=== PATIENT | female | born 1945 | race Caucasian/White ===

== ENCOUNTER → 2018-10-30 10:38 | Outpatient (CLI) | payer MEDICARE, SELFPAY ==
--- NOTE | 2018-10-30 | DI.MG.S_ITS ---
BILATERAL DIGITAL SCREENING MAMMOGRAM 3D/2D WITH CAD POST LUMPECTOMY: 10/30/2018 CLINICAL: Routine screening. Personal history of breast cancer. Family history of breast cancer. Comparison is made to exams dated: 01/10/2018 mammogram, 12/21/2017 mammogram, 12/12/2017 mammogram, 09/15/2015 mammogram, 09/09/2014 mammogram, and 09/06/2013 mammogram - [facility]. There are scattered fibroglandular elements in both breasts. Current study was also evaluated with a Computer Aided Detection (CAD) system. There are benign post operative findings in the left breast. No significant masses, calcifications, or other findings are seen in either breast. There has been no significant interval change. IMPRESSION: There is no mammographic evidence of malignancy. A 1 year screening mammogram is recommended. This exam was interpreted at Station ID: [id number]. NOTE: For mammograms, a report in lay terms will be sent to the patient. Approximately 15% of breast malignancies will not be visualized mammographically. In the management of a palpable breast mass, a negative mammogram must not discourage biopsy of a clinically suspicious lesion. Electronically Signed By: Edy kraft/ashley:10/30/2018 13:49:27 copy to: Travis Narvaez letter sent: Normal Exam ACR BI-RADS Category 2: Benign Finding(s) 3342F
== END ==
PROVIDERS: Family Provider Internal Medicine; PCP Internal Medicine; Visit Provider Radiology Radiation Oncology
DX: Z12.31 Encounter for screening mammogram for malignant neoplasm of breast (principal); Z85.3 Personal history of malignant neoplasm of breast; Z80.3 Family history of malignant neoplasm of breast
CPT/HCPCS: 77063; 77067

== ENCOUNTER → 2019-03-07 11:37 | Outpatient (CLI) | payer MEDICARE, SELFPAY ==
--- NOTE | 2019-03-07 | DI.RAD.S_ITS ---
PROCEDURE: XR KNEE LT 3V INDICATIONS: BILAT KNEE ARTHRITIS TECHNIQUE: 3 views of the knee were acquired. COMPARISON: [facility], CR, XR KNEE RT 3V, 03/07/2019, 11:47. FINDINGS: Bones: No fractures or dislocations. No suspicious bony lesions. Moderately severe medial compartment joint space narrowing is present on the left, appreciably less prominent than that on the right. No effusion or loose body is seen. Soft tissues: No joint effusion. No suspicious soft tissue calcifications. IMPRESSION: Asymmetric knee joint osteoarthritis at the medial compartments, greater on the left than the right where [id number]-mv-[id number] articulation is seen at the joint margin. Dictated by: Carlos Grigsby M.D. on 03/07/2019 at 12:46 Approved by: Carlos Grigsby M.D. on 03/07/2019 at 12:47
--- NOTE | 2019-03-07 | DI.RAD.S_ITS ---
PROCEDURE: XR KNEE RT 3V INDICATIONS: BILAT KNEE ARTHRITIS TECHNIQUE: Anderson views of the knee were acquired. COMPARISON: None. FINDINGS: Bones: No fractures or dislocations. No suspicious bony lesions. There is tnqx-je-javwotii medial compartment joint space narrowing, and no effusion or intra-articular loose body is seen. Soft tissues: No joint effusion. No suspicious soft tissue calcifications. IMPRESSION: Mild to moderate medial compartment osteoarthritis allowing joint space narrowing in that area but no trauma is seen. Dictated by: Carlos Grigsby M.D. on 03/07/2019 at 12:45 Approved by: Carlos Grigsby M.D. on 03/07/2019 at 12:46
== END ==
PROVIDERS: Family Provider Internal Medicine; PCP Internal Medicine; Visit Provider Internal Medicine
DX: M17.0 Bilateral primary osteoarthritis of knee (principal)
CPT/HCPCS: 73562

== ENCOUNTER → 2019-08-08 17:00 | Outpatient (CLI) | payer MEDICARE, SELFPAY ==
--- NOTE | 2019-08-08 17:01 | DI.MRI.S_ITS ---
PROCEDURE: MR KNEE RT WO CON INDICATIONS: UNILATERAL PRIMARY OSTEOARTHRITIS, RIGHT KNEE TECHNIQUE: Noncontrast sagittal PD fast spin echo and T2 fast spin echo with fat saturation, sagittal 3-D FLASH with fat saturation; coronal T1 spin echo and PD fast spin echo with fat saturation, and axial PD fast spin echo with fat saturation through the knee. COMPARISON: [facility], CR, XR KNEE RT 3V, 03/07/2019, 11:47. FINDINGS: Image quality: Motion artifact is present on several imaging sequences. This does result in suboptimal evaluation for subtle abnormalities. Bones and joint: There is no acute fracture or dislocation. No suspicious osseous lesions are evident. There is a small knee joint effusion. No significant Carlton's cyst is evident. Heterogeneity of the hyaline articular cartilage is noted within all 3 compartments of the knee. Marginal osteophytes are noted within all 3 compartments of the knee. There areas of degenerative/reactive marrow change evident along the periphery of the medial tibial plateau. Cruciate ligaments: The anterior and posterior cruciate ligaments are intact. Menisci: There is an oblique tear identified involving the body and posterior horn of the medial meniscus that extends into the inferior articular surface and propagates to the posterior meniscal root. Grade 2 signal through the body of the medial meniscus is also present. There is grade 2 signal involving the body of the lateral meniscus. A horizontal tear along the periphery of the lateral meniscus may be present without displacement. Medial structures: The medial collateral ligament is intact. The semimembranosus tendon insertion is intact. The imaged portions of the pes anserinus tendons are unremarkable. No significant fluid is contained within the pes anserinus bursa. Lateral structures: The popliteal tendon is edematous and irregular. The lateral collateral ligament proper (fibular collateral ligament) and the proximal tibiofibular ligaments are intact. The distal aspect of the biceps femoris tendon and the iliotibial band are intact. Anterior structures: The quadriceps and patellar tendons are intact. There is no significant edema in the infrapatellar fat pad. Edema within the subcutaneous tissues about the knee is present. IMPRESSION: 1. Oblique tear involving the body and posterior horn of the medial meniscus. 2. Probable horizontal tear on the periphery of the lateral meniscus. 3. Mild to moderate degenerative changes of the knee. 4. Small knee joint effusion. 5. Partial thickness tearing and tendinopathy of the proximal popliteal tendon. Dictated by: Sesar Hurley M.D. on 08/09/2019 at 9:32 Approved by: Sesar Hurley M.D. on 08/09/2019 at 9:39
== END ==
PROVIDERS: Family Provider Internal Medicine; PCP Internal Medicine; Visit Provider Orthopaedic Surgery
DX: M17.11 Unilateral primary osteoarthritis, right knee (principal); S83.241A Other tear of medial meniscus, current injury, right knee, initial encounter; M25.461 Effusion, right knee
CPT/HCPCS: 73721

== ENCOUNTER → 2019-08-12 16:43 | Outpatient (CLI) | payer MEDICARE, SELFPAY ==
[2019-08-12 18:08] LABS: Blood Urea Nitrogen 18 mg/dL (7-17); Calcium 9.7 mg/dL (8.4-10.2); Carbon Dioxide 28 mmol/L (22-32); Chloride 99 mmol/L (98-107); Estimated Glomerular Filt Rate > 60.0 mL/min (>60); Glucose 97 mg/dL (80-110); HEMOLYSIS 33 (0-50); Potassium 4.4 mmol/L (3.4-5.1); Sodium 138 mmol/L (137-145)
[2019-08-12 18:13] LABS: Add Manual Diff / Slide Review YES; Hematocrit 43.1 % (36-46); Hemoglobin 14.8 g/dL (12.0-16.0); Mean Corpuscular HGB Conc 34.2 % (30-36); Mean Corpuscular Hemoglobin 32.4 PG (26-34); Mean Corpuscular Volume 94.6 fL (80-100); Platelet Count 138 X10^3/uL (150-400); Red Blood Cell Count 4.56 X10^6/uL (4.0-5.2); Red Cell Distribution Width 13.4 % (11.6-14.8); White Blood Cell Count 7.5 X10^3/uL (4.5-11.0)
[2019-08-12 18:19] LABS: Appearance Urine UA CLEAR; Bilirubin Urine UA NEGATIVE (NEGATIVE); Color Urine UA YELLOW; Glucose Urine UA NEGATIVE (Negative); Ketones Urine UA NEGATIVE (NEGATIVE); Leukocyte Esterase Urine UA NEGATIVE (NEGATIVE); Nitrite Urine UA NEGATIVE (Negative); Occult Blood Urine UA NEGATIVE (Negative); Protein Urine UA NEGATIVE (Negative); Specific Gravity Urine UA <=1.005 (1.000-1.035); Urobilinogen Urine UA 0.2 E.U./dL (0.2)
[2019-08-12 18:23] LABS: pH Urine UA 6.5 (4.5-8.0)
[2019-08-12 18:24] LABS: Bacteria Urine Occasional (0-1); Culture Indicated Urine Cult Not Indicated; RBC Urine 0-1/HPF (0-5/HPF); Squamous Epithelial Cell Urine 0-1 /HPF (0-5/HPF); WBC Urine 0-1/HPF (0-5/HPF)
[2019-08-12 18:37] LABS: Neutrophils Absolute Manual 5400 /uL (3000-5900); RBC Morphology Normal Morphology; Total Cells Counted 100
== END ==
PROVIDERS: Family Provider Internal Medicine; PCP Internal Medicine; Visit Provider Orthopaedic Surgery
DX: Z01.818 Encounter for other preprocedural examination (principal); N39.9 Disorder of urinary system, unspecified; Z13.1 Encounter for screening for diabetes mellitus; R73.9 Hyperglycemia, unspecified
CPT/HCPCS: 36415; 80048; 81001; 83036; 85025; 93005; 93010

== ENCOUNTER 2019-10-11 12:13 | Observation (INO) | payer MEDICARE, SELFPAY ==
[2019-09-26 09:03] VITALS: BMI 43.0
[2019-10-10] VITALS (14 sets, daily range): BP systolic 95–158; BP diastolic 54–90; PULSE 54–90; RESP 11–21; TEMP 36–36.4; O2SAT 92–100; BMI 43.0
--- NOTE | 2019-10-10 11:40 | DI.RAD.S_ITS ---
PROCEDURE: XR KNEE RT 1TO2V INDICATIONS: total right knee TECHNIQUE: 2 view(s) of the knee acquired. COMPARISON: [facility], CR, XR KNEE ARTHRITIC SERIES BI, 04/25/2019, 13:26. FINDINGS: Bones: Patient is status post knee joint arthroplasty. Hardware components are in expected positions. Visualized bony structures are intact. Soft tissues: Overlying postoperative changes are noted. Expected postoperative changes within the adjacent soft tissues is present with areas of soft tissue air and edema. A surgical drainage catheter is seen overlying the superolateral margin of the knee. No unexpected radio opaque foreign bodies are appreciated. IMPRESSION: Expected postsurgical changes related to a total right knee arthroplasty. Dictated by: Sesar Hurley M.D. on 10/10/2019 at 15:02 Approved by: Sesar Hurley M.D. on 10/10/2019 at 15:03
[2019-10-10] MEDS: LACTATED RINGERS 1,000 ML 42 ML IV (11:46)
[2019-10-10] MEDS: CELECOXIB 200 MG CAPSULE PO (11:48)
[2019-10-10] MEDS: ACETAMINOPHEN 325 MG TABLET 975 MG PO (11:48)
[2019-10-10] MEDS: PREGABALIN 75 MG CAPSULE PO (11:48)
[2019-10-10] MEDS: VANCOMYCIN 1,000 MG/200 ML PIGGYBACK 200 MG IV (11:51)
--- NOTE | 2019-10-10 12:33 | PM.PREOP ---
Pre-operative Note Interval Note History & Physical reviewed/Exam performed by Physician: Yes Changes to H&P: No
--- NOTE | 2019-10-10 12:41 | PM.OP.1 ---
Operative Date/Time/Diagnoses Date of procedure: 10/10/19 Time of procedure: 13:21 Pre-op diagnosis: Severe right knee OA Post-op diagnosis: same Procedure & Clinicians Procedure: Right total knee arthroplasty Same procedure as scheduled: Yes Indications: The patient has had progressively worsening right knee pain with radiographic changes consistent with arthritis. Non-operative management has failed and the patient has requested total knee replacement. The risks, benefits and alternatives to surgery were discussed with the patient prior to proceeding. Risks discussed included, but were not limited to, failure to relieve pain, stiffness, infection, nerve damage, deep venous thrombosis, pulmonary embolism, stroke, coma, heart attack, permanent paralysis and , as well as the potential need for eventual revision of the prosthetic. Surgeon: Susan Talbot Credit Risk Review Officer: Watson Gresham Anesthesia Type: General and Spinal Operative Notes Findings: Severe right knee OA, good stability Closure Type: primary Prosthetic devices, grafts, tissues, transplants, or devices: Talbot [employer] Nephew Journey BCS 2 size 5 femur, size 3 tibia, 32 by 7.5mm patella, +10 poly Applied: drain(s) Estimated Blood Loss (mL): 250 Blood products transfused: none Tourniquet time (min): 68 Procedure in detail: The patient was seen in the pre-operative area, where the patient identified the right knee as the operative site and this was marked with my initials. The patient received pre-operative antibiotics, and was taken to the operating room and placed on the operative table in the supine position. After satisfactory anesthesia, a timekeeper supervisor out was performed. The right leg was encircled with a tourniquet about the proximal thigh, and the leg was prepared from the toes to the tourniquet with ChloroPrep in the usual fashion and draped through sterile drapes. The leg was elevated and exsanguinated with Eschmark bandage and the tourniquet inflated to [250] mmHg pressure. The knee was approached through an approximately 18 cm incision centered over the patella and carried into the knee through a medial parapatellar arthrotomy. A portion of the medial and lateral meniscus was resected. Soft tissue was carefully mobilized around the patella the patella was measured with a caliper. Bone was resected from the patella and the patellar height was reconstituted with up an appropriate sized patellar component. A cover was then placed on the patella. A small amount of additional medial and lateral meniscus was resected. The visionare guide fit well to the distal femur. It looked like an appropriate distal femoral cut and the cut was made without difficulty. The rotation was assessed and the appropriate size femoral guide was placed on the distal femur and finishing cuts were made. There was no evidence of notching. The anterior, posterior and chamfer cuts were then made. The posterior osteophytes and soft tissues were then removed. The posterior capsule was injected with part of a mixture of 60 ml 0.25% Marcaine mixed with 20 ml Exparel for post operative pain control. The remainder of this mixture was injected into the capsule and subcutaneous tissues during cement curing. The tibia was prepared and the visionaire guide fit well to the distal tibia. The rotation was assessed. The patient was placed in extension residual medial and lateral meniscus as well as any residual bone was carefully resected. [No] additional tibia was resected. Hemostasis was achieved especially posteriorly. Additional local was injected into the posterior capsule. The extension gap was assessed and additional releases for gap balancing were performed as necessary. It was checked with the gap visual merchandising assistant. The femoral component was trial was placed and the notch was finished. Trial tibial and femoral components were then placed and the knee placed through a range of motion. Range of motion was [0-130], with good stability throughout the range. The trials were then removed, and the tibia was finished. The bone was prepared with pulsatile lavage, and dried with a sponge. Cement was applied and the final prosthetics placed. Excess cement was removed during and after cement curing. A brief Betadine soak was performed. After confirming there was no extruded cement posteriorly, the final tibial insert was placed. The knee was copiously irrigated and the tourniquet deflated. Hemostasis was obtained with the Bovie. A drain was placed and brought out superolaterally. The capsule was closed with interrupted Vicryl suture. The subcutaneous layer was closed with barbed sutures, and the skin with a running 3-0 V-Lock suture and Surgical glue. An Aquacel Ag dressing was applied and the patient was taken to recovery having tolerated the procedure well. Complications: none Post-operative Condition: stable Disposition: Acute Care Plan for aftercare: The patient will be maintained on a standard total knee replacement protocol with weight bearing as tolerated. The patient will receive aspirin and sequential compression devices for DVT prophylaxis. The patient will be discharged home when safe for the home environment.
[2019-10-10] MEDS: CEFAZOLIN 2 GM/100 ML FROZ.PIGGY IV ×2 (13:12→21:42)
[2019-10-10] MEDS: TRANEXAMIC ACID 1,000 MG VIAL 2000 MG INJ (13:30)
--- NOTE | 2019-10-10 13:41 | SUR.OPER ---
Supine on padded OR bed. Pillow under head, arms secured on padded armboards <90 degree abduction. Safety belt across torso. Non-operative leg secured with tape over blanket over lower leg. Operative leg secured in DeMayo/Simon positioner. Foam padded brace at thigh of operative leg.
[2019-10-10] MEDS: BUPIVACAINE 0.25% W/ EPI (PF) 10 ML VIAL 60 ML INJ (13:46)
[2019-10-10] MEDS: BUPIVACAINE LIPOSOME 266 MG/20 ML VIAL INJ (13:47)
[2019-10-10] MEDS: TRANEXAMIC ACID 1,000 MG VIAL 1000 MG IV (15:00)
[2019-10-10] MEDS: LACTATED RINGERS 1,000 ML 125 ML IV (18:11)
[2019-10-10] MEDS: AMLODIPINE 5 MG TABLET PO (18:12)
[2019-10-10] MEDS: IBUPROFEN 400 MG TABLET PO ×2 (18:12→21:42)
--- NOTE | 2019-10-10 19:42 | PC.NURSE ---
Donna shift note: Received patient from PACU, awake, alert, and pleasant. Oriented to room, environment, and plan of care. High risk precautions in place and call light within reach, Bill at bedside providing supportive care.
[2019-10-10] MEDS: ASPIRIN EC 81 MG TABLET PO (21:42)
[2019-10-10] MEDS: ACETAMINOPHEN 325 MG TABLET 650 MG PO (21:42)
[2019-10-10] MEDS: DOCUSATE 100 MG CAPSULE PO (21:42)
[2019-10-10] MEDS: cloNIDine 0.1 MG TABLET PO (21:43)
[2019-10-11] VITALS (8 sets, daily range): BP systolic 98–142; BP diastolic 65–75; PULSE 50–77; RESP 16–18; TEMP 35.9–37.3; O2SAT 96–99
[2019-10-11] MEDS: IBUPROFEN 400 MG TABLET PO ×6 (02:39→20:51)
[2019-10-11] MEDS: CEFAZOLIN 2 GM/100 ML FROZ.PIGGY IV (04:49)
[2019-10-11 05:26] LABS: Hematocrit 37.7 % (36-46); Hemoglobin 12.6 g/dL (12.0-16.0)
[2019-10-11] MEDS: OXYCODONE IR 5 MG TABLET PO ×5 (08:04→20:51)
[2019-10-11] MEDS: LOSARTAN 50 MG TABLET 100 MG PO (08:05)
[2019-10-11] MEDS: DOCUSATE 100 MG CAPSULE PO ×2 (08:06→20:51)
[2019-10-11] MEDS: hydroCHLOROthiazide 25 MG TABLET PO (08:09)
[2019-10-11] MEDS: ASPIRIN EC 81 MG TABLET PO ×2 (08:09→20:51)
[2019-10-11] MEDS: ACETAMINOPHEN 325 MG TABLET 650 MG PO ×3 (08:10→20:51)
[2019-10-11] MEDS: SODIUM CHLORIDE 0.9% FLUSH 10 ML IV ×2 (08:10→21:07)
--- NOTE | 2019-10-11 09:46 | PT.IIE ---
Current Diagnoses Unilateral primary osteoarthritis, right knee (10/10/19) Surgery Performed Operation Date: 10/10/19 13:15 Actual Procedures p Total Knee Arthroplasty(Right) - Susan Talbot MD Surgical History (Last Updated 09/26/19 @ 09:22 by June Jewell, RN) History of hammer toe correction (Acute) History of partial mastectomy of left breast (Acute ~2017) Hx of appendectomy (Acute) Hx of bilateral cataract extraction (Acute) Medical History (Last Updated 09/26/19 @ 09:31 by June Jewell RN) Anxiety (Acute) Arthritis (Acute) Breast cancer, left (Acute ~2016) Cellulitis (Acute ~2010) HTN (hypertension) (Acute) Osteoarthritis (Acute) Pedal edema (Acute) Pre-diabetes (Acute) Rosacea (Acute) Seasonal allergies (Acute) Thin skin (Acute) Venous insufficiency (Acute) Physical Therapy Inpatient Evaluation/Re-Eval M1 PT/OT-IP Prior Functional Status Start: 10/11/19 11:55 Freq: NEEDED Status: Active Protocol: Document 10/11/19 09:46 AB (Rec: 10/11/19 12:13 AB [id number]) Medical Review Prior Functional Status Medical History Reviewed Yes Communication able to make needs known Mobility and Gait pt stated that she is modified independent with all mobilities and ambulation without AD indoors but has used a FWW/SPC for the last 2 weeks due to knee pain; usually uses a SPC for outdoor mobility Social History Household Members spouse Living Arrangements House Number of Floors (Floors) One Floor Number of Stairs To Enter/Railing? no steps to enter Home Environment High Toilet,Walk in Shower, Built-In Shower Seat Home Equipment Front Wheel Walker,Straight Cane,Hand Held Shower,Grab Bars Near Toilet,Grab Bars In Shower Employment Status Retired M2 PT-IP Current Condition Start: 10/11/19 11:55 Freq: NEEDED Status: Active Protocol: Document 10/11/19 09:46 AB (Rec: 10/11/19 12:13 AB [id number]) Physical Therapy Current Condition Current Condition Evaluation Date 10/11/19 Treatment Diagnosis s/p R TKA; difficulty in walking Onset Date 10/10/19 Weight Bearing Status Weight Bearing Status Weight Bear as Tolerated M3 PT-IP Subjective Start: 10/11/19 11:55 Freq: NEEDED Status: Active Protocol: Document 10/11/19 09:46 AB (Rec: 10/11/19 12:13 AB [id number]) Subjective Physical Therapy Visit Type Type Initial Evaluation Visit Start Time 09:46 Visit Stop Time 10:35 Total Visit Minutes 49 Number of CLARIFIER OPERATOR Visits 0 Physical Therapy Visit Comments Patient Comments pt agreeable to do PT Therapy Pain Assessment Pain When Pain Assessed At Rest Pain Present Pain Present Pain Reported Location Right Knee Intensity 4 Scale Used Numeric (1 - 10) Description With Movement Pain Behaviors Guarding Pain Management Techniques Distraction,Modification of Treatment,Re-positioning, Timing of Activity with Medications M4 PT-IP Mobility and Gait Start: 10/11/19 11:55 Freq: NEEDED Status: Active Protocol: Document 10/11/19 09:46 AB (Rec: 10/11/19 12:13 AB [id number]) PT-Bed Mobility Assessment Supine to Sit Supine to Sit Standby Assistance Sit to Supine Sit to Supine Standby Assistance PT-Transfer Assessment Sit to and From Stand Sit to and from Stand Minimal Assistance,Moderate Assistance,1 Person Assistance ,Use of Upper Extremities Equipment Transfer Assistive Device Gait Belt,Front Wheeled Walker Orthotic/Prosthetic Devices or Brace: No Transfers Transfer Destination Bed,Chair,Toilet Transfer Technique ambulated using FWW Transfer Ability Level of Assist Contact Guard Assistance,1 Person Assistance,Use of Upper Extremities Comments Mobility Comments pt found sitting on chair. completed sit to stand max A and cues. completed sit <> stand x 4 reps initially requiring mod to max A but after 2 reps only requires min A and cues for techniques. pt requested to use the toilet and ambulation using FWW min A and cues ~ 10 ft. completed sit <>stand using grab bars min A and cues. ambulated from the toilet towards the sink using FWW CGA to min A and cues and was able to maintain standing using FWW for support CGA. pt ambulated farther in the room ~ 30 ft CGA to min A and cues. pt completed bed mobility supine< >sit SBA. spouse came midway through session and caregiver training conducted. educated spouse on how to use safety belt and how to assist pt. pt completed sit <>stand x 2 reps with spouse assisting and completed safety. spouse also was able to assist pt with ambulation. Gait Assessment Gait Gait Assistance Required: Contact Guard Assist,Minimum Assistance Distance (Feet) 30 Able to Maintain Weight Bearing Status Yes During Gait Assistive Devices Assistive Device Gait Belt,Front Wheeled Walker Orthotic/Prosthetic Devices or Brace: No Gait Deviations General Gait Pattern Antalgic,Decreased Stride Length,Decreased Feet Clearance Factors Limiting Gait Function Factors Limiting Gait Function Decreased Activity Tolerance, Decreased Strength,Limited Range of Motion,Pain,Poor Balance,Poor Safety Awareness PT-Balance Assessment Sitting Balance and Reactions Static Sitting Balance Ability Good Dynamic Sitting Balance Ability Good Standing Balance and Reactions Static Standing Balance Ability Fair Dynamic Standing Balance Ability Fair Device Used FWW M5 PT-IP Objective Assessments Start: 10/11/19 11:55 Freq: NEEDED Status: Active Protocol: Document 10/11/19 09:46 AB (Rec: 10/11/19 12:13 AB [id number]) Orientation Orientation/Cognition Level of Alertness Alert Orientation Name,Day of Week,Situation Safety Awareness Understands Safety Issues Memory Description No Deficits Noted Strength Comments Strength Comments BLE 4-/5 Coordination Assessment Gross Coordination Gross Coordination WNL Sensation Assessment Sensation Gross Sensation WNL Muscle Tone Muscle Tone WNL Yes M6 PT-IP Treatment Start: 10/11/19 11:55 Freq: NEEDED Status: Active Protocol: Document 10/11/19 09:46 AB (Rec: 10/11/19 12:13 AB [id number]) Physical Therapy Treatment Education Education Provided Precautions,Weight Bearing Status,Post-Op Packet,Safety M7 PT-IP Assessment and Plan Start: 10/11/19 11:55 Freq: NEEDED Status: Active Protocol: Document 10/11/19 09:46 AB (Rec: 10/11/19 12:13 AB [id number]) PT Summary Assessment and Plan Potential Rehabilitation Potential Good Status of Condition at Evaluation Stable Summary Impairments Pain,ROM,Strength,Balance, Coordination,Sensation,Tone, Cognition,Bed Mobility, Transfers,Gait,Activity Tolerance Assessment Summary pt requiring CGA to min A with ambulation but requiring min to mod A with sit to stand. caregiver training initiated and spouse was able to assist pt safely. pt may go home when medically stable. Pt stated that she has outpt PT set up already. Goals Bed Mobility Goal Independent Transfer Goal Independent,Front Wheeled Walker Gait Goal Independent,Front Wheel Walker Gait Distance 200 Days to Meet Goals 3 Frequency of Treatment Frequency Of Treatment Twice a Day Treatment Plan Physical Therapy Treatment Plan Bed Mobility Training,Transfer Training,Gait Training, Therapeutic Exercise,Balance Retraining,Post Op Education, Discharge Planning,Hot or Cold Pack,Neuromuscular Re-ed, Coordination Retraining,Manual Therapy Recommendations To Nursing Amount of Assist Needed 1 Person Assist Discharge Recommendations PT Discharge Recommendations Home with Assistance, Outpatient PT
--- NOTE | 2019-10-11 10:30 | PC.NURSE ---
Addendum entered by Paulina Pearce R.N. 10/11/19 14:51: At 1311, Message left on [facility] phone regarding discharge order and planning for today. Addendum entered by Paulina Pearce R.N. 10/11/19 14:29: At 1420, pt out of chair ambulation with PT, c/o 9/10 pain to right knee, able to walk in room using walker with and PT at side, settled back into bed. Scheduled Tylenol and prn Oxycodone given. Addendum entered by Paulina Pearce R.N. 10/11/19 13:10: pt states having her prescription for PRN Oxycodone and Colace at home. Spoke with pt regarding preventing constipation with water, stool softeners, ambulation every 2 hours when at home. Original Note: Day Shift- Pt A&OX4, able to make needs known using call light, OOB to BR then chair for breakfast. Reports 1-3/10 pain with rest to right knee and 6-7/10 with movement. Pain management plan discussed, staying ahead of pain as anesthesia medications are to wear off. Explained when at home, controlling pain and then weaning from narcotics, and Ibuprofen, and Acetaminophen. Increasing interval time between doses and cutting medication in half or quarters, keeping track of pain and when pain medications were taken. Right knee incision covered with CDI aquacel dressing and alberto wrap. Hemovac insitu with tegaderm dressing CDI. CMS+. pt states has chronic edema and venous insufficiency. RLE worse than LLE. No other voiced concerns, call light with in reach.
--- NOTE | 2019-10-11 14:07 | PT.IPTN ---
Current Diagnoses Unilateral primary osteoarthritis, right knee (10/10/19) Surgery Performed Operation Date: 10/10/19 13:15 Actual Procedures p Total Knee Arthroplasty(Right) - Susan Talbot MD Physical Therapy Treatment Note M2 PT-IP Current Condition Start: 10/11/19 11:55 Freq: NEEDED Status: Active Protocol: Document 10/11/19 09:46 AB (Rec: 10/11/19 12:13 AB [id number]) Physical Therapy Current Condition Current Condition Evaluation Date 10/11/19 Treatment Diagnosis s/p R TKA; difficulty in walking Onset Date 10/10/19 Weight Bearing Status Weight Bearing Status Weight Bear as Tolerated M3 PT-IP Subjective Start: 10/11/19 11:55 Freq: NEEDED Status: Active Protocol: Document 10/11/19 14:07 AB (Rec: 10/11/19 16:52 AB [id number]) Subjective Physical Therapy Visit Type Type Treatment Note Visit Start Time 14:07 Visit Stop Time 14:28 Total Visit Minutes 21 Number of INSEMINATION WORKER Visits 0 Physical Therapy Visit Comments Patient Comments pt agreeable to do PT Therapy Pain Assessment Pain When Pain Assessed At Rest Pain Present Pain Present Pain Reported Location Right Knee Intensity 6 Scale Used increases to 8/10 with movement Pain Management Techniques Modification of Treatment,Re- positioning,Timing of Activity with Medications M4 PT-IP Mobility and Gait Start: 10/11/19 11:55 Freq: NEEDED Status: Active Protocol: Document 10/11/19 14:07 AB (Rec: 10/11/19 16:52 AB [id number]) PT-Bed Mobility Assessment Sit to Supine Sit to Supine Moderate Assistance,1 Person Assistance PT-Transfer Assessment Sit to and From Stand Sit to and from Stand Moderate Assistance,1 Person Assistance,Use of Upper Extremities Equipment Transfer Assistive Device Gait Belt,Front Wheeled Walker Orthotic/Prosthetic Devices or Brace: No Comments Mobility Comments caregiver traiing conducted. spouse was able to mange safety belt on pt and was able to safely assist pt with bed mobility, transfers and ambulation. pt needing increase assistance this afternoon with c/o increase knee pain. Gait Assessment Gait Gait Assistance Required: Minimum Assistance Distance (Feet) 30 Able to Maintain Weight Bearing Status Yes During Gait Assistive Devices Assistive Device Gait Belt,Front Wheeled Walker Orthotic/Prosthetic Devices or Brace: No Gait Deviations General Gait Pattern Antalgic,Decreased Stride Length,Decreased Feet Clearance,Step-to Gait Factors Limiting Gait Function Factors Limiting Gait Function Decreased Activity Tolerance, Decreased Strength,Limited Range of Motion,Pain,Poor Balance,Poor Safety Awareness Comments Gait Comments pls refer to mobility section for details M5 PT-IP Objective Assessments Start: 10/11/19 11:55 Freq: NEEDED Status: Active Protocol: Document 10/11/19 09:46 AB (Rec: 10/11/19 12:13 AB [id number]) Orientation Orientation/Cognition Level of Alertness Alert Orientation Name,Day of Week,Situation Safety Awareness Understands Safety Issues Memory Description No Deficits Noted Strength Comments Strength Comments BLE 4-/5 Coordination Assessment Gross Coordination Gross Coordination WNL Sensation Assessment Sensation Gross Sensation WNL Muscle Tone Muscle Tone WNL Yes M6 PT-IP Treatment Start: 10/11/19 11:55 Freq: NEEDED Status: Active Protocol: Document 10/11/19 14:07 AB (Rec: 10/11/19 16:52 AB [id number]) Physical Therapy Treatment Education Education Provided Safety M7 PT-IP Assessment and Plan Start: 10/11/19 11:55 Freq: NEEDED Status: Active Protocol: Document 10/11/19 14:07 AB (Rec: 10/11/19 16:52 AB [id number]) PT Summary Assessment and Plan Potential Rehabilitation Potential Good Summary Impairments Pain,ROM,Strength,Balance, Coordination,Sensation,Tone, Cognition,Bed Mobility, Transfers,Gait,Activity Tolerance Progress Towards Goals Slow Progress due to Pain Assessment Summary caregiver training conducted and spouse was able to assist pt safely. pt complaining of increase pain this afternoon affecting mobility and level of care but spouse able to assist pt despite of increase assistance needed. pt may go home when medically stable. Goals Bed Mobility Goal Independent Transfer Goal Independent,Front Wheeled Walker Gait Goal Independent,Front Wheel Walker Gait Distance 200 Days to Meet Goals 3 Frequency of Treatment Frequency Of Treatment Twice a Day Treatment Plan Physical Therapy Treatment Plan Bed Mobility Training,Transfer Training,Gait Training, Therapeutic Exercise,Balance Retraining,Post Op Education, Discharge Planning,Hot or Cold Pack,Neuromuscular Re-ed, Coordination Retraining,Manual Therapy Recommendations To Nursing Amount of Assist Needed 1 Person Assist Discharge Recommendations PT Discharge Recommendations Home with Assistance, Outpatient PT
--- NOTE | 2019-10-11 15:47 | CM.DANOTE ---
DCP/Assessment: Reviewed chart. Patient is a 74yr old female admitted to [facility] for right TKA performed on 10-10-[address] Talbot. PCP is Dr. Narvaez. Primary payor is 1)Medicare 2)[facility]. Met with patient explained CM/SW role. Patient hopes to d/c home within the next 24hrs. Patient has all needed DME and plans to do outpatient therapy at [facility] [place] P: Home when stable. CM team to follow if needs arise. RADHA Bedoya Discharge Planning/Care Management CM Discharge Assessment Start: 10/11/19 15:45 Freq: Status: Active Protocol: Document 10/11/19 15:45 KJS (Rec: 10/11/19 15:47 KJS [id number]) Discharge Planning Assessment Assigned Lead Data Architect RADHA Bedoya Contact Information Alessandro Sánchez (spouse) [phone] Advance Directives? No History Provided By Patient,Medical Record Prior Living Arrangements House Household Members spouse Type of transporation used prior to Drives own vehicle admit Independent with ADL's Yes Is patient alert and oriented? Yes DME Already Rented / Owned FWW / Walker Patient/Family Preference OP PT Therapy Barriers to Discharge No Discharge Plan Home Transportation Arrangement Family to provide transport. Whiteboard Updated in Patient Room with Yes name and ext. # of Lead Data Architect Review Status In Process Next Review Type Continued Stay Review Pre-Anesthesia Assessment Start: 09/26/19 09:03 Freq: Status: Complete Protocol: Document 09/26/19 09:03 CAB (Rec: 09/26/19 09:40 CAB [id number]) Pre-Anesthesia Assessment Patient Information Reviewed Via Phone Assessment Assessment Completed With Patient Diagnostic Results BMP/CMP,CBC,EKG,Urinalysis Comment Labs/EKG @ 08/12/19 Platelets 138 Primary Care Provider Travis Narvaez Seen Specialist in Last 12 Months Yes Specialist Seen Rotary Dryer Operator,Oncologist, Orthopedist Primary Language Filipino Floor Runner Required No Height 152.4 cm Weight 99.79 kg Body Mass Index (BMI) 43.0 Visual Assist None Dentition Type Teeth, Natural Present Barriers to Learning Auditory Comment Mild VENETIE Hx Anesthesia Reactions No Hx Family Anesthesia Reaction No Hx Malignant Hyperthermia No Hx Blood Transfusions No Anesthesia Review Requested No alcohol intake never Smoking Status Former smoker how long ago did patient quit smoking Quit age 23, smoked 4 years Substance Use Type does not use Pain Present Pain Reported Musculoskeletal Symptoms Abnormal Gait,Difficulty Walking,Joint Pain History of Falling (Recent or History of Yes ) Patient is completely paralyzed or No completely immobile Prosthesis or Orthotic Device Cane,Front Wheel Walker Mental Status Oriented to own ability Is patient on oxygen? No Does patient have GUO/SOB No Hx Sleep Apnea No Currently Taking a Beta Alvarez No Can You Climb a Flight of Stairs Without Yes SOB Hx Chest Pain No Hx SOB No Hx Syncope or Dizziness No Anti-Coagulant Therapy No Has a Butt Trimmer No Cardiac Testing No Hx Pacemaker/ICD No Pacemaker Rep Required? No Cardiac Clearance Received Not Applicable Diet Type At Home Regular,Diabetic dysphagia No Bladder Pattern Incontinent Urinary Catheter Present No Hx Urinary Self Catheterization No Diabetes No: Pre-diabetic, checks blood sugar daily HgbA1C 6.0 Date 08/12/19 Patient No Lactating No Hx Drug Resistant Organism No Presence of External or Internal Medical Yes: Bilat eye lens Devices Have you traveled outside the [facility] in the last 30 days? Marital Status Lives With spouse Prior Living Arrangements House Number of Floors (Floors) One Floor Support System Spouse Does the Patient Have Assistance After Yes Surgery Patient Discharge Plan Description Return Home Comment Pt advised overnight length of stay per surgeon Feels Safe in Current Environment Yes Been Physically Hurt or Threatened By a No Person in Current Environment Do you have thoughts of harming yourself None or others? Are you currently considering suicide? No Do you have a plan to hurt yourself or No Plan others? Do You Have Any Spiritual Beliefs That No May Affect Your HC Choices? Do You Have Any Cultural Practices That No May Affect Your HC Choices? Comment Jain Who Can We Speak to About Patient's Care Family, friends Identifying Code for Release of Patient Declines to issue Information Health Care Proxy/Next of Kin Bill () Health Care Proxy , Emergency Contact Name Bill () Emergency Contact , Advance Directives? No Power of Shank Faker No PAC Instructions Do not shave/clip surgical site,Durable medical equipment ,Medications to take/avoid, Nasal antibiotic,No ETOH/ petroleum product on skin DOS, NPO,Post-op transportation,Pre -surgical wash,Sturdy shoes/ comfortable clothes,Do not bring valuables and remove jewelry
[2019-10-11] MEDS: AMLODIPINE 5 MG TABLET PO (17:10)
[2019-10-11] MEDS: LORATADINE 10 MG TABLET PO (17:10)
--- NOTE | 2019-10-11 18:11 | PC.NURSE ---
TALKED TO PATIENT ABOUT HER PAIN NOW AT 5/10, STATES VERY STIFF AND PAIN INCREASING WITH TRIP TO BATHROOM,BAGGER MEAT STATES PATIENT WAS VERY UNSTEADY AND HAD DIFFICULT TIME GETTING TO BATHROOM. HEMOVAC IN PLACE WITH OUTPUT OF 150 MLS FOR DAY SHIFT AND HAS MORE NOW.PATIENT HAD THOUGHT SHE WAS READY TO POSS.LEAVE TODAY, BUT NOW WANTS TO STAY TONIGHT
[2019-10-11] MEDS: cloNIDine 0.1 MG TABLET PO (20:51)
[2019-10-12 00:10] VITALS: BP 131/70; PULSE 81; RESP 19; TEMP 36.9; O2SAT 96
[2019-10-12] MEDS: IBUPROFEN 400 MG TABLET PO ×3 (00:46→08:29)
[2019-10-12] MEDS: OXYCODONE IR 5 MG TABLET PO ×4 (00:47→11:20)
[2019-10-12 05:49] VITALS: BP 139/75; PULSE 75; RESP 18; TEMP 36.9; O2SAT 93
[2019-10-12 08:00] VITALS: BP 173/87; PULSE 90; RESP 18; TEMP 36.7; O2SAT 97
[2019-10-12 08:28] VITALS: BP 173/87; PULSE 95
[2019-10-12] MEDS: hydroCHLOROthiazide 25 MG TABLET PO (08:28)
[2019-10-12] MEDS: ASPIRIN EC 81 MG TABLET PO (08:28)
[2019-10-12] MEDS: cloNIDine 0.1 MG TABLET PO (08:28)
[2019-10-12] MEDS: DOCUSATE 100 MG CAPSULE PO (08:29)
[2019-10-12] MEDS: LOSARTAN 50 MG TABLET 100 MG PO (08:29)
[2019-10-12] MEDS: ACETAMINOPHEN 325 MG TABLET 650 MG PO (08:29)
--- NOTE | 2019-10-12 09:00 | PM.DS.1 ---
History of Present Illness History of Present Illness Date Patient Seen: 10/12/19 Time Patient Seen: 09:00 Chief complaint: [id number] Narrative: Pain is 3 to 10/10 depending on activity level. No fever/ chills. No nausea/ vomiting. Patient's is home to assist her. Patient wishes to be discharged home today if safe to do so. Discharge Providers Provider Date of admission: 10/10/19 10:45 Discharge Date: 10/12/19 Primary care physician: Travis Narvaez MD Consults: 10/10/19 11:39 Consult to Anesthesiology Routine Comment: Consulting Provider: Anesthesiologist Reason for consultation: Regional block for post operative pain control 10/10/19 16:51 Consult to Discharge Planning Routine Comment: Consult to Physical Therapy Evaluate & Treat Comment: Physician Instructions: postop TKA protocol Consult to Respiratory Therapy Evaluate & Treat Comment: Physician Instructions: Evaluate and treat Discharge provider: Watson Gresham PA-C Summary Hospital Course Discharge Diagnosis: Status post right total knee arthroplasty secondary to severe right knee osteoarthritis Obesity, BMI 43 Hospital Course: Procedure: Right total knee arthroplasty Same procedure as scheduled: Yes Indications: The patient has had progressively worsening right knee pain with radiographic changes consistent with arthritis. Non-operative management has failed and the patient has requested total knee replacement. The risks, benefits and alternatives to surgery were discussed with the patient prior to proceeding. Risks discussed included, but were not limited to, failure to relieve pain, stiffness, infection, nerve damage, deep venous thrombosis, pulmonary embolism, stroke, coma, heart attack, permanent paralysis and , as well as the potential need for eventual revision of the prosthetic. Surgeon: Susan Talbot Managing Director Atlas: Watson Gresham Anesthesia Type: General and Spinal Operative Notes Findings: Severe right knee OA, good stability Closure Type: primary Prosthetic devices, grafts, tissues, transplants, or devices: Talbot and Nephew Journey BCS 2 size 5 femur, size 3 tibia, 32 by 7.5mm patella, +10 poly Applied: drain(s) Estimated Blood Loss (mL): 250 Blood products transfused: none Tourniquet time (min): 68 Patient admitted to the hospital for right total knee arthroplasty. Patient consented to the same. Patient taken operating room for right total knee arthroplasty. Patient back in her room recovering well as in stable condition. Patient has done well with physical therapy will be discharged home today. Patient's is home to assist her. Exam Vital Signs (past 8 hours): - 10/12/19 05:49 10/12/19 08:00 10/12/19 08:28 Temperature 98.4 F 98.0 F Pulse Rate 75 90 95 H Respiratory Rate 18 18 Blood Pressure 139/75 173/87 H 173/87 H Pulse Oximetry 93 97 Oxygen Delivery Method Room Air Oxygen Flow Rate 0 Narrative Exam Narrative: 74-year-old female resting comfortably in bedside chair in no apparent distress. Right knee dressing is clean, dry and intact. Hemovac is in place. Calf is soft and nontender. Negative Homans. Motor functions intact distally. Sensation intact to light touch. Right leg is warm and dry. Objective Labs Result Diagrams: 10/11/19 05:20 Discharge Plan Discharge Plan Patient Disposition: Home Discharge orders & Medications Prescriptions: Continued clonidine HCl 0.1 mg tablet 0.1 mg PO BID RF: 0 amlodipine 5 mg tablet 5 mg PO QPM RF: 0 hydrochlorothiazide 25 mg Tablet 25 mg PO DAILY RF: 0 losartan 100 mg Tablet 100 mg PO DAILY RF: 0 tamoxifen 20 mg Tablet 20 mg PO DAILY RF: 0 fexofenadine 180 MG tablet 180 mg PO QPM RF: 0 aspirin 81 mg Tablet,Delayed Release (Dr/Ec) 81 mg PO DAILY RF: 0 acetaminophen 500 mg Tablet 500 mg PO BID PRN (Reason: Pain) RF: 0 Follow up/Referrals: Travis Narvaez MD [Primary Care Provider] - Susan Talbot MD [Physician] - (1 wk) Diet/Activity/Treatments Activity: per [facility] Cold/Heat Therapy: per [facility] Other treatments: Ibuprofen 400 mg every 4 hours, Tylenol 500 mg every 4 hours, aspirin 81 mg b.i.d., oxycodone as needed pain, hydroxyzine as needed muscle spasms or nausea Skin/Wound/Dressing Care Report to your healthcare provider any signs of infection, such as:: chills, fever, increased pain, unusual drainage and unusual redness Dressing: keep clean and dry Visit Report/Discharge Packet Instructions: DI for Knee Replacement, How to Prevent Falls, DI for Postoperative Pain, DI for Prescription Opioid Use Stand Alone Forms: Surgery Discharge Discharge Data Primary Care Provider: Travis Narvaez Quality VTE Deep Vein Thrombosis/Pulmonary Embolism Present on Admission: No
--- NOTE | 2019-10-12 10:29 | PT.IPTN ---
Current Diagnoses Unilateral primary osteoarthritis, right knee (10/10/19) Surgery Performed Operation Date: 10/10/19 13:15 Actual Procedures p Total Knee Arthroplasty(Right) - Susan Talbot MD Physical Therapy Treatment Note M2 PT-IP Current Condition Start: 10/11/19 11:55 Freq: NEEDED Status: Discharge Protocol: Document 10/11/19 09:46 AB (Rec: 10/11/19 12:13 AB [id number]) Physical Therapy Current Condition Current Condition Evaluation Date 10/11/19 Treatment Diagnosis s/p R TKA; difficulty in walking Onset Date 10/10/19 Weight Bearing Status Weight Bearing Status Weight Bear as Tolerated M3 PT-IP Subjective Start: 10/11/19 11:55 Freq: NEEDED Status: Discharge Protocol: Document 10/12/19 10:29 AB (Rec: 10/12/19 12:46 AB [id number]) Subjective Physical Therapy Visit Type Type Treatment Note Visit Start Time 10:29 Visit Stop Time 10:52 Total Visit Minutes 23 Number of LINGO CLEANER Visits 0 Physical Therapy Visit Comments Patient Comments pt agreeable to do PT; spouse present Therapy Pain Assessment Pain When Pain Assessed At Rest Pain Present Pain Present Pain Reported Location Right Knee Intensity 3 Scale Used Numeric (1 - 10) Pain Management Techniques Apply Cold,Re-positioning, Timing of Activity with Medications M4 PT-IP Mobility and Gait Start: 10/11/19 11:55 Freq: NEEDED Status: Discharge Protocol: Document 10/12/19 10:29 AB (Rec: 10/12/19 12:46 AB [id number]) PT-Bed Mobility Assessment Supine to Sit Supine to Sit Moderate Assistance,1 Person Assistance Sit to Supine Sit to Supine Minimal Assistance,Moderate Assistance,1 Person Assistance PT-Transfer Assessment Sit to and From Stand Sit to and from Stand Minimal Assistance Equipment Transfer Assistive Device Gait Belt,Front Wheeled Walker Orthotic/Prosthetic Devices or Brace: No Comments Mobility Comments caregiver training conducted. spouse was able to safely assist pt with bed mobility, transfers and ambulation. Gait Assessment Gait Gait Assistance Required: Contact Guard Assist Distance (Feet) 50 Able to Maintain Weight Bearing Status Yes During Gait Assistive Devices Assistive Device Gait Belt,Front Wheeled Walker Orthotic/Prosthetic Devices or Brace: No Gait Deviations General Gait Pattern Antalgic,Decreased Stride Length,Decreased Feet Clearance,Step-to Gait Factors Limiting Gait Function Factors Limiting Gait Function Decreased Activity Tolerance, Decreased Strength,Limited Range of Motion,Pain,Poor Balance,Poor Safety Awareness M5 PT-IP Objective Assessments Start: 10/11/19 11:55 Freq: NEEDED Status: Discharge Protocol: Document 10/11/19 09:46 AB (Rec: 10/11/19 12:13 AB [id number]) Orientation Orientation/Cognition Level of Alertness Alert Orientation Name,Day of Week,Situation Safety Awareness Understands Safety Issues Memory Description No Deficits Noted Strength Comments Strength Comments BLE 4-/5 Coordination Assessment Gross Coordination Gross Coordination WNL Sensation Assessment Sensation Gross Sensation WNL Muscle Tone Muscle Tone WNL Yes M6 PT-IP Treatment Start: 10/11/19 11:55 Freq: NEEDED Status: Discharge Protocol: Document 10/12/19 10:29 AB (Rec: 10/12/19 12:46 AB [id number]) Physical Therapy Treatment Exercises Exercises Heel Slides Education Education Provided Safety M7 PT-IP Assessment and Plan Start: 10/11/19 11:55 Freq: NEEDED Status: Discharge Protocol: Document 10/12/19 10:29 AB (Rec: 10/12/19 12:46 AB [id number]) PT Summary Assessment and Plan Potential Rehabilitation Potential Good Summary Impairments Pain,ROM,Strength,Balance,Bed Mobility,Transfers,Gait, Activity Tolerance Progress Towards Goals Progressing Toward Goals Assessment Summary pt progressing with mobility. caregiver training conducted and spouse was able to assist pt safely. pt plans to go home today. Goals Bed Mobility Goal Independent Transfer Goal Independent,Front Wheeled Walker Gait Goal Independent,Front Wheel Walker Gait Distance 200 Days to Meet Goals 3 Frequency of Treatment Frequency Of Treatment Twice a Day Treatment Plan Physical Therapy Treatment Plan Bed Mobility Training,Transfer Training,Gait Training, Therapeutic Exercise,Balance Retraining,Post Op Education, Discharge Planning,Hot or Cold Pack,Neuromuscular Re-ed, Coordination Retraining,Manual Therapy Recommendations To Nursing Amount of Assist Needed 1 Person Assist Discharge Recommendations PT Discharge Recommendations Home with Assistance, Outpatient PT
--- NOTE | 2019-10-12 12:40 | PC.NURSE ---
Day Shift- Pt had AM PT session. Pain 5/10 deep aching and stiffness to right knee. PRN Oxycodone given X2 at 0825 and 1120. Pain management plan discussed, pt agreeable. Right knee aqucel dressing CDI, alberto wrap in place. Hemovac removed at 1015, site cleansed with NS, folded 4X4 gauze placed and covered with tegaderm, pt tolerated well. Pt states is ready for discharge. Discharge summary packet reviewed with pt and her . No voiced concerns, instructed to refer to [facility] booklet for pain management and in providers discharge instructions within summary packet printed and given to pt. Pt states has all belongings. Post op Prescriptions already filled and at home. Instructed on OTC PRN medications to prevent constipation. Pt left unit at 1237 via wheelchair in no distress with SALES ARCHITECT escort. Pt's present to drive her home.
== END 2019-10-12 12:37 | disposition home or self-care (01) ==
LOC: AC 10-12 09:00 → OR 10-13 11:11 → AC 10-13 11:13
PROVIDERS: Admitting Provider Orthopaedic Surgery; Family Provider Internal Medicine; PCP Internal Medicine; Visit Provider Orthopaedic Surgery
PROC: 0SRC0JZ Replacement of Right Knee Joint with Synthetic Substitute, Open Approach (ICD-10-PCS; CPT 27447; principal; 2019-10-10 13:15)
DX: M17.11 Unilateral primary osteoarthritis, right knee (principal); I10 Essential (primary) hypertension; R73.03 Prediabetes; Z87.891 Personal history of nicotine dependence
CPT/HCPCS: 27447; 73560; 85014; 85018; 94762; 97161; 97530; C1776; G0378; C9290; J0690; J1100; J2250; J2274; J2405; J2704; J3010

== ENCOUNTER → 2019-10-31 09:42 | Outpatient (CLI) | payer MEDICARE, SELFPAY ==
[2019-10-10 18:01] VITALS: BMI 43.0
--- NOTE | 2019-10-31 | DI.MG.S_ITS ---
BILATERAL DIGITAL SCREENING MAMMOGRAM 3D/2D WITH CAD: 10/31/2019 CLINICAL: Routine screening. Family history of breast cancer. Comparison is made to exams dated: 10/31/2019 mammogram, 10/30/2018 mammogram, and 12/12/2017 mammogram - [facility]. There are scattered fibroglandular elements in both breasts. Current study was also evaluated with a Computer Aided Detection (CAD) system. There are benign calcifications in both breasts. There also are benign vascular calcifications in both breasts. Additionally, there are benign post operative findings in the left breast. No significant masses, calcifications, or other findings are seen in either breast. There has been no significant interval change. IMPRESSION: There is no mammographic evidence of malignancy. A 1 year screening mammogram is recommended. This exam was interpreted at Station ID: [id number]. NOTE: For mammograms, a report in lay terms will be sent to the patient. Approximately 15% of breast malignancies will not be visualized mammographically. In the management of a palpable breast mass, a negative mammogram must not discourage biopsy of a clinically suspicious lesion. Electronically Signed By: Edy kraft/ashley:11/01/2019 10:45:15 copy to: Travis Narvaez letter sent: Normal Exam ACR BI-RADS Category 2: Benign Finding(s) [id number]
== END ==
PROVIDERS: Family Provider Internal Medicine; PCP Internal Medicine; Visit Provider Radiology Radiation Oncology
DX: Z12.31 Encounter for screening mammogram for malignant neoplasm of breast (principal); Z80.3 Family history of malignant neoplasm of breast
CPT/HCPCS: 77063; 77067

== ENCOUNTER → 2020-05-01 08:43 | Outpatient (CLI) | payer MEDICARE, SELFPAY ==
[2019-10-10 18:01] VITALS: BMI 43.0
--- NOTE | 2020-05-01 | DI.MRI.S_ITS ---
PROCEDURE: MR KNEE LT WO CON INDICATIONS: Unilateral primary osteoarthritis, left knee TECHNIQUE: Noncontrast sagittal PD fast spin echo and T2 fast spin echo with fat saturation, sagittal 3-D FLASH with fat saturation; coronal T1 spin echo and PD fast spin echo with fat saturation, and axial PD fast spin echo with fat saturation through the knee. COMPARISON: Bilateral knee radiographs dated 04/25/2019 performed at [facility]. FINDINGS: Image quality: Excellent. Menisci: Diminutive appearance of the medial meniscal body is likely secondary to extensive degenerative tearing and maceration. There is mild extrusion of the meniscal body beyond the femorotibial joint line. The lateral meniscus is intact. Cruciate ligaments: The anterior and posterior cruciate ligaments appear intact. Medial structures: The medial collateral ligament appears intact. Visualized portions of the pes anserinus tendons appear normal. No abnormal bursal fluid. Lateral structures: The lateral collateral ligament, long and short heads of the biceps femoris tendon appear intact. The popliteus tendon is intact. Iliotibial band appears normal. Anterior structures: The quadriceps and patellar tendons appear intact. Patellar alignment is normal. No femoral trochlear dysplasia or ventral trochlear prominence. No edema in the infrapatellar fat pad. Bones and cartilage: No bone marrow contusions or fractures. Full thickness cartilage loss is seen throughout the weight-bearing portion of the medial femorotibial compartment with subchondral edema and cystic changes as well as marginal osteophyte formation. Marginal osteophytes are also seen in the lateral compartment. Subchondral cystic changes are seen at the peripheral portion of the lateral femoral condyle. Moderate grade partial-thickness cartilage loss is seen in the median ridge/lateral facet of the patella. There is full-thickness cartilage loss in the medial femoral trochlea. Marginal osteophytes are present anteriorly. Joint space: There is a small joint effusion. A trace medial popliteal cyst is present. There is mild fatty infiltration of the musculature surrounding the knee. A small amount of nonspecific subcutaneous edema is seen in the prepatellar soft tissues. IMPRESSION: 1. Degenerative tearing and maceration of the body of the medial meniscus with mild extrusion. 2. Tricompartmental degenerative osteoarthrosis, which is worst in the medial femorotibial compartment where there is grade 4 chondromalacia throughout the weight-bearing portion as well as subchondral cystic changes and edema. Areas of grade 4 chondromalacia are also seen in the anterior compartment. Tricompartmental marginal osteophyte formation is seen. 3. Small joint effusion. Dictated by: Eugene Patel M.D. on 05/01/2020 at 9:38 Approved by: Eugene Patel M.D. on 05/01/2020 at 9:51
== END ==
PROVIDERS: Family Provider Internal Medicine; PCP Internal Medicine; Referring Provider Orthopaedic Surgery; Visit Provider Orthopaedic Surgery
DX: M17.12 Unilateral primary osteoarthritis, left knee (principal); M25.462 Effusion, left knee; M23.232 Derangement of other medial meniscus due to old tear or injury, left knee; M94.262 Chondromalacia, left knee
CPT/HCPCS: 73721

== ENCOUNTER → 2020-08-19 14:30 | Outpatient (CLI) | payer MEDICARE, SELFPAY ==
[2019-10-10 18:01] VITALS: BMI 43.0
[2020-08-19 14:56] LABS: Bacteria Urine None Seen; RBC Urine None Seen (0-5/HPF); WBC Urine None Seen (0-5/HPF)
[2020-08-19 15:33] LABS: Hemoglobin A1C% w Est Avg Glu 6.4 % (4.0-6.0)
[2020-08-19 15:34] LABS: Add Manual Diff / Slide Review NO; Basophils Absolute Auto 0 /uL (0-100); Basophils Percent Auto 0.4 % (0-2); Eosinophils Absolute Auto 200 /uL (0-450); Eosinophils Percent Auto 2.6 % (2-4); Hematocrit 42.6 % (36-46); Hemoglobin 13.9 g/dL (12.0-16.0); Lymphocytes Absolute Auto 1500 /uL (1100-4500); Lymphocytes Percent Auto 24.4 % (25-40); Mean Corpuscular HGB Conc 32.7 % (30-36); Mean Corpuscular Hemoglobin 31.3 PG (26-34); Mean Corpuscular Volume 95.5 fL (80-100); Monocytes Absolute Auto 700 /uL (0-900); Monocytes Percent Auto 11.1 % (3-14); Neutrophils Absolute Auto 3800 /uL (1500-7000); Neutrophils Percent Auto 61.5 % (50-75); Platelet Count 182 X10^3/uL (150-400); Red Blood Cell Count 4.46 X10^6/uL (4.0-5.2); Red Cell Distribution Width 14.4 % (11.6-14.8); White Blood Cell Count 6.2 X10^3/uL (4.5-11.0)
[2020-08-19 15:45] LABS: BUN Creatinine Ratio 41.5 (6-22); Blood Urea Nitrogen 22 mg/dL (7-17); Calcium 9.9 mg/dL (8.4-10.2); Carbon Dioxide 31 mmol/L (22-32); Chloride 100 mmol/L (98-107); Estimated Glomerular Filt Rate > 60.0 mL/min (>60); Glucose 112 mg/dL (80-110); HEMOLYSIS < 15 (0-50); Potassium 4.3 mmol/L (3.4-5.1); Sodium 136 mmol/L (137-145)
[2020-08-19 15:49] LABS: Appearance Urine UA CLEAR; Bilirubin Urine UA NEGATIVE (NEGATIVE); Color Urine UA YELLOW; Glucose Urine UA NEGATIVE (Negative); Ketones Urine UA NEGATIVE (NEGATIVE); Leukocyte Esterase Urine UA NEGATIVE (NEGATIVE); Nitrite Urine UA NEGATIVE (Negative); Occult Blood Urine UA NEGATIVE (Negative); Protein Urine UA NEGATIVE (Negative); Urobilinogen Urine UA 0.2 E.U./dL (0.2)
[2020-08-19 16:01] LABS: Culture Indicated Urine Cult Not Indicated; Urine Comments Microscopic Normal
== END ==
PROVIDERS: Family Provider Internal Medicine; PCP Internal Medicine; Referring Provider Orthopaedic Surgery; Visit Provider Orthopaedic Surgery
DX: Z01.812 Encounter for preprocedural laboratory examination (principal); R73.9 Hyperglycemia, unspecified; N39.0 Urinary tract infection, site not specified
CPT/HCPCS: 36415; 80048; 81001; 83036; 85025; 93005

== ENCOUNTER → 2020-09-21 11:44 | Outpatient (CLI) | payer MEDICARE, SELFPAY ==
[2019-10-10 18:01] VITALS: BMI 43.0
[2020-09-21 12:42] LABS: COVID19 -Nasal RAPID Negative (Negative)
== END ==
PROVIDERS: Family Provider Internal Medicine; PCP Internal Medicine; Visit Provider Physician Assistant
DX: Z11.59 Encounter for screening for other viral diseases (principal)
CPT/HCPCS: 87635

== ENCOUNTER 2020-09-25 13:52 | Observation (INO) | payer MEDICARE, SELFPAY ==
[2019-10-10 18:01] VITALS: BMI 43.0
[2020-09-22 07:43] VITALS: BMI 42.5
[2020-09-24] VITALS (16 sets, daily range): BP systolic 98–169; BP diastolic 44–92; PULSE 53–93; RESP 10–18; TEMP 35.6–36.5; O2SAT 92–100; BMI 42.3
--- NOTE | 2020-09-24 06:00 | DI.RAD.S_ITS ---
PROCEDURE: XR KNEE LT 1TO2V INDICATIONS: postop TECHNIQUE: 2 view(s) of the knee acquired. COMPARISON: [facility], CR, XR KNEE RT 1TO2V, 10/10/2019, 15:32. FINDINGS: Bones: Patient is status post knee joint arthroplasty. Hardware components are in expected positions. Visualized bony structures are intact. Soft tissues: Overlying postoperative changes are noted. IMPRESSION: Expected postoperative appearance. Dictated by: Rob Perez M.D. on 09/24/2020 at 15:44 Approved by: Rob Perez M.D. on 09/24/2020 at 15:44
[2020-09-24] MEDS: LACTATED RINGERS 1,000 ML 42 ML IV ×2 (09:54→14:07)
[2020-09-24] MEDS: PREGABALIN 75 MG CAPSULE PO (09:55)
[2020-09-24] MEDS: MELOXICAM 7.5 MG TABLET 15 MG PO (09:55)
[2020-09-24] MEDS: VANCOMYCIN 1,000 MG/200 ML PIGGYBACK 200 MG IV (10:56)
--- NOTE | 2020-09-24 12:04 | PM.PREOP ---
Pre-operative Note COVID-19 COVID-19 status: Negative Interval Note History & Physical reviewed/Exam performed by Physician: Yes Changes to H&P: No
[2020-09-24] MEDS: CEFAZOLIN 2 GM/100 ML FROZ.PIGGY IV ×2 (12:15→21:08)
--- NOTE | 2020-09-24 12:19 | P.OP_ITS ---
Operative Date/Time/Diagnoses Date of procedure: 09/24/20 Time of procedure: 12:19 Pre-op diagnosis: left knee OA Post-op diagnosis: same Procedure & Clinicians Procedure: Left total knee arthroplasty Same procedure as scheduled: Yes Indications: The patient has had progressively worsening left knee pain with radiographic changes consistent with arthritis. Non-operative management has failed and the patient has requested total knee replacement. The risks, benefits and alternatives to surgery were discussed with the patient prior to proceeding. Risks discussed included, but were not limited to, failure to relieve pain, stiffness, infection, nerve damage, deep venous thrombosis, pulmonary embolism, stroke, coma, heart attack, permanent paralysis and , as well as the potential need for eventual revision of the prosthetic. Surgeon: Susan Talbot Recreation Supervisor: Watson Gresham Anesthesia Type: General and Spinal Operative Notes Findings: Severe left knee osteoarthritis, acceptable tracking of the patella, adequate stability Closure Type: primary Specimen(s): none sent Prosthetic devices, grafts, tissues, transplants, or devices: Talbot [employer] BCS to size 4 femur, size 3 tibia, +9 poly, 32 x 7.5 mm patella Applied: drain(s) Estimated Blood Loss (mL): 250 Blood products transfused: none Tourniquet time (min): 69 Procedure in detail: The patient was seen in the pre-operative area, where the patient identified the left knee as the operative site and this was marked with my initials. The patient received pre-operative antibiotics, and was taken to the operating room and placed on the operative table in the supine position. After satisfactory anesthesia, a director multimedia out was performed. The left leg was encircled with a tourniquet about the proximal thigh, and the leg was prepared from the toes to the tourniquet with ChloroPrep in the usual fashion and draped through sterile drapes. The leg was elevated and exsanguinated with Eschmark bandage and the tourniquet inflated to [250] mmHg pressure. The knee was approached through an approximately 18 cm incision centered over the patella and carried into the knee through a medial parapatellar arthrotomy. A portion of the medial and lateral meniscus was resected. Soft tissue was carefully mobilized around the patella the patella was measured with a caliper. Bone was resected from the patella and the patellar height was reconstituted with up an appropriate sized patellar component. A cover was then placed on the patella. A small amount of additional medial and lateral meniscus was resected. The visionare guide fit well to the distal femur. It looked like an appropriate distal femoral cut and the cut was made without difficulty. The rotation was assessed and the appropriate size femoral guide was placed on the distal femur and finishing cuts were made. There was no evidence of notching. The anterior, posterior and chamfer cuts were then made. The posterior osteophytes and soft tissues were then removed. The posterior capsule was injected with part of a mixture of 60 ml 0.25% Marcaine mixed with 20 ml Exparel for post operative pain control. The remainder of this mixture was injected into the capsule and subcutaneous tissues during cement curing. The tibia was prepared and the visionaire guide fit well to the distal tibia. The rotation was assessed. The patient was placed in extension residual medial and lateral meniscus as well as any residual bone was carefully resected. [No] additional tibia was resected. Hemostasis was achieved especially posteriorly. Additional local was injected into the posterior capsule. The extension gap was assessed and additional releases for gap balancing were performed as necessary. The femoral component was trial was placed and the notch was finished. Trial tibial and femoral components were then placed and the knee placed through a range of motion. Range of motion was [0-130], with good stability throughout the range. The trials were then removed, and the tibia was finished. The bone was prepared with pulsatile lavage, and dried with a sponge. Cement was applied and the final prosthetics placed. Excess cement was removed during and after cement curing. A brief Betadine soak was performed. After confirming there was no extruded cement posteriorly, the final tibial insert was placed. The knee was copiously irrigated and the tourniquet deflated. Hemostasis was obtained with the Bovie. A drain was placed and brought out superolaterally. The capsule was closed with interrupted Vicryl suture. The subcutaneous layer was closed with barbed sutures, and the skin with a running 3-0 V-Lock suture and Surgical glue. An Aquacel Ag dressing was applied and the patient was taken to recovery having tolerated the procedure well. Complications: none Post-operative Condition: stable Disposition: Acute Care Plan for aftercare: The patient will be maintained on a standard total knee replacement protocol with weight bearing as tolerated. The patient will receive aspirin and sequential compression devices for DVT prophylaxis. The patient will be discharged home when safe for the home environment.
--- NOTE | 2020-09-24 13:20 | SUR.OPER ---
Supine on padded OR bed. Pillow under head, arms secured on padded armboards <90 degree abduction. Safety belt across torso. Non-operative leg secured with tape over blanket over lower leg. Operative leg secured in DeMayo positioner. Foam padded brace at thigh of operative leg.
[2020-09-24] MEDS: BUPIVACAINE 0.25% W/ EPI 30 ML VIAL 60 ML INJ (13:24)
[2020-09-24] MEDS: BUPIVACAINE LIPOSOME 266 MG/20 ML VIAL INJ (13:24)
[2020-09-24] MEDS: TRANEXAMIC ACID 1,000 MG VIAL 2000 MG INJ (13:25)
[2020-09-24] MEDS: SODIUM CHLORIDE IRRIG SOLUTION 250 ML, POVIDONE-IODINE SPONGE STICKS 1 APPLIC IRR (13:26)
[2020-09-24] MEDS: OXYCODONE/ACETAMINOPHEN 5/325 TABLET 1 TAB PO (15:05)
--- NOTE | 2020-09-24 15:21 | SUR.PHASEI ---
Report given to Marybel PATTERSON AC. Pt prepared for transition to room 216
[2020-09-24] MEDS: LACTATED RINGERS 1,000 ML 100 ML IV (16:17)
[2020-09-24] MEDS: ACETAMINOPHEN 325 MG TABLET 650 MG PO ×2 (16:17→21:06)
[2020-09-24] MEDS: cloNIDine 0.1 MG TABLET PO ×2 (16:18→21:06)
[2020-09-24] MEDS: AMLODIPINE 5 MG TABLET PO (17:03)
[2020-09-24] MEDS: IBUPROFEN 400 MG TABLET PO ×2 (17:03→21:07)
[2020-09-24] MEDS: OXYCODONE IR 5 MG TABLET PO (17:59)
[2020-09-24] MEDS: DOCUSATE 100 MG CAPSULE PO (21:07)
[2020-09-24] MEDS: ASPIRIN EC 81 MG TABLET PO (21:07)
--- NOTE | 2020-09-24 22:06 | PC.NURSE ---
Admit/Evening Shift Note- Patient arrived to room via bed from PACU at 1530. Patient alert and oriented and able to make needs known to staff. Patient pleasent, calm, and cooperative. Admission questions done, medications reviewed, physical assessment done and skin check completed. Oriented patient to bed and bed controls, room, bathroom, lights, menu, phone, and call whitfield/tv remote. aquacell dressing with alberto wrap in place and c/d/i. SCD's in place. Ice packs provided. hemavac unclamped at 1630 as directed. Hemavac compressed for suction with out put od 110cc's for this shift. Safety measures in place. Patient agrees to call for assistance. Bed alarm activated. Call whitfield and phone within reach. Will continue to monitor.
[2020-09-25] MEDS: IBUPROFEN 400 MG TABLET PO ×6 (00:56→21:28)
[2020-09-25] MEDS: OXYCODONE IR 5 MG TABLET PO ×4 (02:08→12:50)
[2020-09-25] MEDS: LACTATED RINGERS 1,000 ML 100 ML IV (02:11)
[2020-09-25] MEDS: CEFAZOLIN 2 GM/100 ML FROZ.PIGGY IV (03:53)
[2020-09-25 05:24] LABS: Hemoglobin 11.7 g/dL (12.0-16.0)
[2020-09-25 05:40] VITALS: BP 123/59; PULSE 50; RESP 18; TEMP 36.4; O2SAT 99
--- NOTE | 2020-09-25 07:35 | P.PN_ITS ---
Subjective Subjective Date Patient Seen: 09/25/20 Time Patient Seen: 07:35 Interval history: Patien is POD#1 s/p left TKA with Dr. Talbot. Pain has been moderate but improves with Oxycodone. She has been out of bed to bedside commode. She is voiding appropriately. Tolerating a diet. Denies any numbness, tingling, chest pain or shortness of breath. Exam Vital Signs (past 8 hours): - 09/25/20 05:40 Temperature 97.5 F L Pulse Rate 50 L Respiratory Rate 18 Blood Pressure 123/59 L Pulse Oximetry 99 Oxygen Delivery Method Room Air Oxygen Flow Rate 0 Narrative Exam Narrative: 75 year old female resting in bed alert and oriented in no acute distress. Aquacel dressing is CDI, DEBORAH wrap in place. Active dorsiflexion/plantar flexion of the ankle. Calves are soft, nontender. Palpable pedal pulse. Objective Labs Result Diagrams: 09/25/20 04:40 Labs: Laboratory Results - last 24 hr 09/25/20 04:40 Hgb 11.7 L Hct 35.0 L PFSH Medical History Anxiety Arthritis Breast cancer, left (~2016) Cellulitis (~2010) HTN (hypertension) Osteoarthritis Pedal edema Pre-diabetes Rosacea Seasonal allergies Thin skin Venous insufficiency Surgical History (Updated 09/22/20 @ 07:48 by June Jewell RN) History of arthroplasty of right knee (10/10/19) History of hammer toe correction History of partial mastectomy of left breast (~2016) Hx of appendectomy Hx of bilateral cataract extraction Family History (Updated 08/20/14 @ 00:00 by Mayela Arevalo PA-C) Sister Type II diabetes mellitus Essential hypertension Social History household members: spouse Smoking Status: Former smoker alcohol intake: never Assessment & Plan Assessment & Plan narrative: -POD #1 s/p left TKA. -Patient is doing well, but feels she still needs quite a bit of assistance for mobilizing due to severity of pain. Discussed with her modifying pain regimen but she would like to refrain as she gets fairly drowzy with Oxycodone but has been tolerating 5mg. Will keep her on regular schedule of this as well as Ty lenol/Advil today to aid in her mobility. -Continue ASA 81mg BID and SCDs for DVT prophylaxis. -Mobilize with PT today. -Possible discharge to home this evening. Will likely need 2 session of PT today prior to discharge. Quality VTE Deep Vein Thrombosis/Pulmonary Embolism Present on Admission: No
[2020-09-25] MEDS: cloNIDine 0.1 MG TABLET PO ×3 (08:22→21:28)
[2020-09-25] MEDS: DOCUSATE 100 MG CAPSULE PO ×2 (08:22→21:28)
[2020-09-25] MEDS: LOSARTAN 50 MG TABLET 100 MG PO (08:23)
[2020-09-25] MEDS: LORATADINE 10 MG TABLET PO (08:23)
[2020-09-25] MEDS: ASPIRIN EC 81 MG TABLET PO ×2 (08:23→21:28)
[2020-09-25] MEDS: ACETAMINOPHEN 325 MG TABLET 650 MG PO ×3 (08:24→21:29)
[2020-09-25] MEDS: hydroCHLOROthiazide 25 MG TABLET PO (08:25)
[2020-09-25 08:40] VITALS: BP 121/60; PULSE 78; RESP 13; TEMP 36.3; O2SAT 98
--- NOTE | 2020-09-25 09:32 | PT.IIE ---
Current Diagnoses Unilateral primary osteoarthritis, left knee (09/24/20) Surgery Performed Operation Date: 09/24/20 11:30 Actual Procedures p Total Knee Arthroplasty(Left) - Susan Talbot MD Surgical History (Last Updated 09/22/20 @ 07:48 by June Jewell RN) History of arthroplasty of right knee (10/10/19) History of hammer toe correction History of partial mastectomy of left breast (~2016) Hx of appendectomy Hx of bilateral cataract extraction Medical History (Last Reviewed 09/25/20 @ 07:39 by Batsheva Sim PA-C) Anxiety Arthritis Breast cancer, left (~2016) Cellulitis (~2010) HTN (hypertension) Osteoarthritis Pedal edema Pre-diabetes Rosacea Seasonal allergies Thin skin Venous insufficiency Physical Therapy Inpatient Evaluation/Re-Eval M1 PT/OT-IP Prior Functional Status Start: 09/25/20 12:32 Freq: NEEDED Status: Active Protocol: Document 09/25/20 09:32 AB (Rec: 09/25/20 12:51 AB [id number]) Medical Review Prior Functional Status Medical History Reviewed Yes Communication able to make needs known Mobility and Gait Pt stated that she is indpeendent with all mobilities and ambulation without AD but occasionally uses a SPC indoors/outdoors; uses hiking poles for long distance walking Social History Household Members spouse Living Arrangements House Number of Floors (Floors) One Floor Number of Stairs To Enter/Railing? no steps to enter Home Environment High Toilet,Walk in Shower, Built-In Shower Seat Home Equipment Front Wheel Walker,Straight Cane,Hand Held Shower,Grab Bars Near Toilet,Grab Bars In Shower M2 PT-IP Current Condition Start: 09/25/20 12:32 Freq: NEEDED Status: Active Protocol: Document 09/25/20 09:32 AB (Rec: 09/25/20 12:51 AB [id number]) Physical Therapy Current Condition Current Condition Evaluation Date 09/25/20 Treatment Diagnosis s/p L TKA; difficulty in walking Onset Date 09/24/20 Weight Bearing Status Weight Bearing Status Weight Bear as Tolerated Allowed Weight Bearing Amount (enter % LLE WBAT or #) (%) M3 PT-IP Subjective Start: 09/25/20 12:32 Freq: NEEDED Status: Active Protocol: Document 09/25/20 09:32 AB (Rec: 09/25/20 12:51 AB [id number]) Subjective Physical Therapy Visit Type Type Initial Evaluation Visit Start Time 09:32 Visit Stop Time 10:02 Total Visit Minutes 30 Number of MICA SPLITTER Visits 0 Physical Therapy Visit Comments Patient Comments pt is agreeable to do PT; c/o increase pain Therapy Pain Assessment Pain When Pain Assessed At Rest Pain Present Pain Present Pain Reported Location Right Knee Intensity 5 Scale Used increases with mobility Pain Management Techniques Distraction,Modification of Treatment,Re-positioning, Timing of Activity with Medications M4 PT-IP Mobility and Gait Start: 09/25/20 12:32 Freq: NEEDED Status: Active Protocol: Document 09/25/20 09:32 AB (Rec: 09/25/20 12:51 [id number]) PT-Bed Mobility Assessment Supine to Sit Supine to Sit Moderate Assistance Sit to Supine Sit to Supine Maximum Assistance,1 Person Assistance PT-Transfer Assessment Sit to and From Stand Sit to and from Stand Moderate Assistance,Maximum Assistance,1 Person Assistance ,Use of Upper Extremities Equipment Transfer Assistive Device Gait Belt,Front Wheeled Walker Orthotic/Prosthetic Devices or Brace: No Transfers Transfer Destination Bed,Chair Transfer Technique Stand Step Pivot Transfer Ability Level of Assist Moderate Assistance,Maximum Assistance,1 Person Assistance ,Use of Upper Extremities Comments Mobility Comments pt sitting on chair and agreed to do PT. completed heel slides prior to mobility. completed sit to stand mod to max A and max cues requiring 2 attempts to complete task. completed step transfer to bed mod to max A and max cues using FWW. completed sit to supine max A with LLE elevation to bed. completed supine to sit mod A and max cues. pt completed sit to stand from bed mod to max A and cues and ambulated in room using FWW mod to max A and cues for L quads sets. (+) body shaking towards end of ambulation with pt c/o increase pain. educated pt on sit to stand techniques and completed x 3 reps requiring mod to max A and cues. positioned pt on chair. instructed to do LE exercises. Left pt with call light and table within reach. Gait Assessment Gait Gait Assistance Required: Moderate Assistance,1 Person Assist Distance (Feet) 20 Able to Maintain Weight Bearing Status Yes During Gait Assistive Devices Assistive Device Gait Belt Orthotic/Prosthetic Devices or Brace: No Gait Deviations General Gait Pattern Antalgic,Decreased Stride Length,Decreased Feet Clearance,Step-to Gait Factors Limiting Gait Function Factors Limiting Gait Function Decreased Activity Tolerance, Decreased Strength,Difficulty Following Directions,Limited Range of Motion,Pain,Poor Balance,Poor Safety Awareness Comments Gait Comments pls refer to mobility section for details PT-Balance Assessment Sitting Balance and Reactions Static Sitting Balance Ability Good Dynamic Sitting Balance Ability Good Standing Balance and Reactions Static Standing Balance Ability Fair Dynamic Standing Balance Ability Poor Device Used FWW M5 PT-IP Objective Assessments Start: 09/25/20 12:32 Freq: NEEDED Status: Active Protocol: Document 09/25/20 09:32 AB (Rec: 09/25/20 12:51 AB [id number]) Orientation Orientation/Cognition Level of Alertness Alert Orientation Name,Place,Situation Language Function Ability No Deficits Noted Safety Awareness Decreased Safety Awareness Gross Range of Motion Lower Extremity ROM Assessment Left Impaired Impairments L knee flexion limited due to c/o pain preventing further movement Strength Lower Extremity Strength Assessment Left Impaired Hip 3+/5 Knee 3+/5 Sensation Assessment Sensation Gross Sensation WNL Muscle Tone Muscle Tone WNL Yes M6 PT-IP Treatment Start: 09/25/20 12:32 Freq: NEEDED Status: Active Protocol: Document 09/25/20 09:32 AB (Rec: 09/25/20 12:51 AB [email or web address]) Physical Therapy Treatment Exercises Exercises Ankle Pumps,Quad Sets,Heel Slides Education Education Provided Precautions,Weight Bearing Status,Post-Op Packet,Safety M7 PT-IP Assessment and Plan Start: 09/25/20 12:32 Freq: NEEDED Status: Active Protocol: Document 09/25/20 09:32 AB (Rec: 09/25/20 12:51 AB [email or web address]) PT Summary Assessment and Plan Potential Rehabilitation Potential Good Status of Condition at Evaluation Evolving Summary Impairments Pain,ROM,Strength,Balance, Coordination,Sensation,Tone, Cognition,Bed Mobility, Transfers,Gait,Activity Tolerance Assessment Summary pt requiring mod to max A with mobility and with c/o increase L knee pain with increase muscle guarding affecting movement. pt plans to go home with spouse to assist and will conduct caregiver training when appropriate. Further assessment needed for safe d/c plan. will continue to assess. Goals Bed Mobility Goal Standby Assistance Transfer Goal Standby Assistance,Front Wheeled Walker Gait Goal Standby Assistance,Front Wheel Walker Gait Distance 150 Days to Meet Goals 5 Frequency of Treatment Frequency Of Treatment Twice a Day Treatment Plan Physical Therapy Treatment Plan Bed Mobility Training,Transfer Training,Gait Training, Therapeutic Exercise,Balance Retraining,Post Op Education, Discharge Planning,Hot or Cold Pack,Neuromuscular Re-ed, Coordination Retraining,Manual Therapy Recommendations To Nursing Amount of Assist Needed 1 Person Assist Discharge Recommendations PT Discharge Recommendations Home with 24/7 Assist,Home Health,Outpatient PT Other Discharge Recommendations depending on progress: home with 24/7 and HHPT vs outpt PT Transportation Needs at Discharge Private Vehicle
--- NOTE | 2020-09-25 11:56 | CM.DANOTE ---
Addendum entered by Yuko Fernandez LPN 09/25/20 12:14: Met with pt. Introduced self and role. Pt is found sitting up in bedside chair and eating lunch. Pt confirms that she will work again with PT this afternoon and I may be able to go home later but not if my pain is still not in good control. She notes she is afraid of going home and then having the pain not be managed. She says she would be more comfortable with a d/c home tomorrow and is aware that this depends on how she does with PT today. Pt confirms her OUTPT PT: she plans to go to OUTPT by at Dr. Talbot's clinic here in [place]. Spouse Quinn will be picking her up at d/c and helping her at home as she recovers. Addendum entered by Yuko Fernandez LPN 09/25/20 11:58: DCP: assessment: Case received, EMR reviewed. DC order is noted but with ortho PA stating that pt will need 2 sessions of PT today and MAY d/c this evening if cleared. Pt is a 75 year old female who admitted yesterday for a scheduled L TKA. Of note: she had R TKA Sep 2019. Surgeon: Dr. Guillermo Talbot Payer: Medicare and [employer] Pt reports her plan at d/c is for home setting with spouse Quinn's support. Will check in with her now and follow for any d/c needs that may arise. (No PT notes are yet available for review). Original Note: Discharge Planning/Care Management CM Discharge Assessment Start: 09/25/20 11:55 Freq: Status: Active Protocol: Document 09/25/20 11:56 ITV (Rec: 09/25/20 11:56 ITV [id number]) Discharge Planning Assessment Advance Directives? No Advance Directives on File No History Provided By Patient,Medical Record Prior Living Arrangements House Household Members spouse Is patient alert and oriented? Yes Pre-Anesthesia Assessment Start: 09/22/20 07:43 Freq: Status: Complete Protocol: Document 09/22/20 07:43 CAB (Rec: 09/22/20 08:14 CAB [id number]) Pre-Anesthesia Assessment PAC Comment Pre-op EKG no significant change from previous tracing 08/12/19 @ Patient Information Reviewed Via Phone Assessment Assessment Completed With Patient Diagnostic Results BMP/CMP,CBC,Urinalysis,Other Comment Labs/EKG @ [facility], COVID screen @ [facility] 09/21/20 Negative Primary Care Provider Travis Narvaez Seen Specialist in Last 12 Months Yes Specialist Seen Electrician Hel[employer],Oncologist, Orthopedist Primary Language Slovenian Preferred Language Slovenian Barrel Rifler Required No Height 152.4 cm Weight 98.883 kg Body Mass Index (BMI) 42.5 Hearing Ability Hard of Hearing Visual Assist Glasses Dentition Type Teeth, Natural Present Barriers to Learning Auditory Comment Mild [place] Hx Anesthesia Reactions No Hx Family Anesthesia Reaction No Hx Malignant Hyperthermia No Hx Blood Transfusions No Hx Blood Transfusion Reaction No Anesthesia Review Requested No Assistant Professor Of History No alcohol intake never Smoking Status Former smoker how long ago did patient quit smoking Quit age 23, smoked 4 years Substance Use Type does not use Pain Present Pain Reported Musculoskeletal Symptoms Abnormal Gait,Difficulty Walking,Joint Pain History of Falling (Recent or History of Yes ) Patient is completely paralyzed or No completely immobile Prosthesis or Orthotic Device Cane,Front Wheel Walker Mental Status Oriented to own ability Is patient on oxygen? No Does patient have GUO/SOB No Hx Sleep Apnea No CPAP/BIPAP use not prescribed Currently Taking a Beta Alvarez No Can You Climb a Flight of Stairs Without Yes SOB Hx Chest Pain No Hx SOB No Hx Syncope or Dizziness No Anti-Coagulant Therapy No Has a Business Development No Cardiac Testing No Hx Pacemaker/ICD No Pacemaker Rep Required? No Cardiac Clearance Received Not Applicable Diet Type At Home Regular,Diabetic dysphagia No Bladder Pattern Incontinent Urinary Catheter Present No Hx Urinary Self Catheterization No Diabetes No: Pre-diabetic, checks blood sugar daily HgbA1C 6.4 Date 08/19/20 Comment Up from 6.0 08/12/19 Patient No Lactating No Hx Drug Resistant Organism No Presence of External or Internal Medical Yes: Bilat eye lens, right Devices knee Have you had any close contact with No someone diagnosed with COVID-19? Marital Status Lives With spouse Prior Living Arrangements House Number of Floors (Floors) One Floor Support System Spouse Does the Patient Have Assistance After Yes Surgery Patient Discharge Plan Description Return Home Comment Pt not advised on length of stay per surgeon Feels Safe in Current Environment Yes Been Physically Hurt or Threatened By a No Person in Current Environment Do you have thoughts of harming yourself None or others? Are you currently considering suicide? No Do you have a plan to hurt yourself or No Plan others? Do You Have Any Spiritual Beliefs That No May Affect Your HC Choices? Do You Have Any Cultural Practices That No May Affect Your HC Choices? Comment Episcopal Who Can We Speak to About Patient's Care Family, friends Identifying Code for Release of Patient Declines to issue Information Health Care Proxy/Next of Kin Bill () Health Care Proxy , Emergency Contact Name Bill () Emergency Contact , Advance Directives? No Power of Adult Basic Studies Teacher No PAC Instructions Do not shave/clip surgical site,Durable medical equipment ,Medications to take/avoid, Nasal antibiotic,No ETOH/ petroleum product on skin DOS, NPO,Post-op transportation, Sturdy shoes/comfortable clothes,Do not bring valuables and remove jewelry
[2020-09-25 12:30] VITALS: BP 145/66; PULSE 74; RESP 16; TEMP 36.6; O2SAT 99
[2020-09-25] MEDS: hydrOXYzine pamoate 25 MG CAPSULE PO (14:10)
--- NOTE | 2020-09-25 14:15 | PT.IPTN ---
Current Diagnoses Unilateral primary osteoarthritis, left knee (09/25/20) Surgery Performed Operation Date: 09/24/20 11:30 Actual Procedures p Total Knee Arthroplasty(Left) - Susan Talbot MD Physical Therapy Treatment Note M2 PT-IP Current Condition Start: 09/25/20 12:32 Freq: NEEDED Status: Active Protocol: Document 09/25/20 09:32 AB (Rec: 09/25/20 12:51 AB [id number]) Physical Therapy Current Condition Current Condition Evaluation Date 09/25/20 Treatment Diagnosis s/p L TKA; difficulty in walking Onset Date 09/24/20 Weight Bearing Status Weight Bearing Status Weight Bear as Tolerated Allowed Weight Bearing Amount (enter % LLE WBAT or #) (%) M3 PT-IP Subjective Start: 09/25/20 12:32 Freq: NEEDED Status: Active Protocol: Document 09/25/20 14:15 AB (Rec: 09/25/20 15:33 AB [email or web address]) Subjective Physical Therapy Visit Type Type Treatment Note Visit Start Time 14:15 Visit Stop Time 15:01 Total Visit Minutes 46 Number of ACQUISITION MANAGER Visits 0 Physical Therapy Visit Comments Patient Comments pt is agreeable to do PT Therapy Pain Assessment Pain When Pain Assessed At Rest Pain Present Pain Present Pain Reported Location Right Knee Intensity 6 Scale Used increases with mobility Pain Behaviors Guarding,Moaning,Wincing Pain Management Techniques Apply Cold,Distraction, Modification of Treatment,Re- positioning,Timing of Activity with Medications M4 PT-IP Mobility and Gait Start: 09/25/20 12:32 Freq: NEEDED Status: Active Protocol: Document 09/25/20 14:15 AB (Rec: 09/25/20 15:33 AB [email or web address]) PT-Bed Mobility Assessment Sit to Supine Sit to Supine Standby Assistance PT-Transfer Assessment Sit to and From Stand Sit to and from Stand Moderate Assistance,Maximum Assistance,1 Person Assistance ,Use of Upper Extremities Equipment Transfer Assistive Device Gait Belt,Front Wheeled Walker Orthotic/Prosthetic Devices or Brace: No Transfers Transfer Destination Toilet Transfer Technique ambulated to the toilet Transfer Ability Level of Assist Moderate Assistance,1 Person Assistance,Use of Upper Extremities Comments Mobility Comments comleted supine to sit SBA. pt requested to use the toilet . completed sit to stand from EOB mod to max A and cues. ambulated to the toilet using FWW mod A and cues. pt was able to maintain standing min A while managing brief. completed sit to stand mod to max A and ambulated to the toilet using FWW min to mod A and maintained standing using FWW for support SBA while completing handwashing. ambulated to the chair using FWW SBA to CGA. educated pt on sit <>stand techniques. pt completed x 7 reps. requiring max A initially but afterwards was able to complete mod to max A and max cues. pt ambulated in room using FWW ~ 60 ft CGA to min A. agreed to sit up on chair. positioned on chair. call light and table placed within reach. Gait Assessment Gait Gait Assistance Required: Contact Guard Assist,Minimum Assistance Distance (Feet) 60 Able to Maintain Weight Bearing Status Yes During Gait Assistive Devices Assistive Device Gait Belt,Front Wheeled Walker Orthotic/Prosthetic Devices or Brace: No Gait Deviations General Gait Pattern Antalgic,Decreased Stride Length,Decreased Feet Clearance Factors Limiting Gait Function Factors Limiting Gait Function Decreased Activity Tolerance, Decreased Strength,Limited Range of Motion,Pain,Poor Balance M5 PT-IP Objective Assessments Start: 09/25/20 12:32 Freq: NEEDED Status: Active Protocol: Document 09/25/20 09:32 AB (Rec: 09/25/20 12:51 AB [email or web address]) Orientation Orientation/Cognition Level of Alertness Alert Orientation Name,Place,Situation Language Function Ability No Deficits Noted Safety Awareness Decreased Safety Awareness Gross Range of Motion Lower Extremity ROM Assessment Left Impaired Impairments L knee flexion limited due to c/o pain preventing further movement Strength Lower Extremity Strength Assessment Left Impaired Hip 3+/5 Knee 3+/5 Sensation Assessment Sensation Gross Sensation WNL Muscle Tone Muscle Tone WNL Yes M6 PT-IP Treatment Start: 09/25/20 12:32 Freq: NEEDED Status: Active Protocol: Document 09/25/20 14:15 AB (Rec: 09/25/20 15:33 AB [email or web address]) Physical Therapy Treatment Education Education Provided Safety M7 PT-IP Assessment and Plan Start: 09/25/20 12:32 Freq: NEEDED Status: Active Protocol: Document 09/25/20 14:15 AB (Rec: 09/25/20 15:33 AB [email or web address]) PT Summary Assessment and Plan Potential Rehabilitation Potential Good Summary Impairments Pain,ROM,Strength,Balance, Coordination,Sensation,Tone, Cognition,Bed Mobility, Transfers,Gait,Activity Tolerance Progress Towards Goals Slow Progress due to Pain Assessment Summary pt continues to c/o increase pain with LLE affecting mobility. pt improving slowly but still requires mod to max A with sit to stand. set up caregiver training for tomorrow 09/26/20 at 10 am with spouse. will continue to assess progress. Goals Bed Mobility Goal Standby Assistance Transfer Goal Standby Assistance,Front Wheeled Walker Gait Goal Standby Assistance,Front Wheel Walker Gait Distance 150 Days to Meet Goals 5 Frequency of Treatment Frequency Of Treatment Twice a Day Treatment Plan Physical Therapy Treatment Plan Bed Mobility Training,Transfer Training,Gait Training, Therapeutic Exercise,Balance Retraining,Post Op Education, Discharge Planning,Hot or Cold Pack,Neuromuscular Re-ed, Coordination Retraining,Manual Therapy Recommendations To Nursing Amount of Assist Needed 1 Person Assist Discharge Recommendations PT Discharge Recommendations Home with 24/7 Assist,Home Health,Outpatient PT Other Discharge Recommendations depending on progress: home with 24/7 and HHPT vs outpt PT Transportation Needs at Discharge Private Vehicle
[2020-09-25 15:42] VITALS: BP 118/66; PULSE 72; RESP 18; TEMP 35.9; O2SAT 99
[2020-09-25] MEDS: AMLODIPINE 5 MG TABLET PO (16:27)
[2020-09-25 19:27] VITALS: BP 130/69; PULSE 73; RESP 20; TEMP 36.7; O2SAT 96
[2020-09-25 21:28] VITALS: BP 130/69; PULSE 73
[2020-09-26 00:24] VITALS: BP 121/60; PULSE 54; RESP 16; TEMP 36.3; O2SAT 96
[2020-09-26] MEDS: IBUPROFEN 400 MG TABLET PO ×3 (00:52→09:32)
[2020-09-26 08:34] VITALS: BP 154/67; PULSE 59; RESP 16; TEMP 36.3; O2SAT 99
[2020-09-26] MEDS: DOCUSATE 100 MG CAPSULE PO (09:32)
[2020-09-26] MEDS: OXYCODONE IR 5 MG TABLET PO (09:32)
[2020-09-26 09:33] VITALS: BP 154/67; PULSE 59
[2020-09-26] MEDS: hydroCHLOROthiazide 25 MG TABLET PO (09:33)
[2020-09-26] MEDS: LOSARTAN 50 MG TABLET 100 MG PO (09:33)
[2020-09-26] MEDS: ACETAMINOPHEN 325 MG TABLET 650 MG PO (09:33)
[2020-09-26] MEDS: LORATADINE 10 MG TABLET PO (09:33)
[2020-09-26] MEDS: ASPIRIN EC 81 MG TABLET PO (09:33)
[2020-09-26 09:37] VITALS: BP 154/67; PULSE 59
[2020-09-26] MEDS: cloNIDine 0.1 MG TABLET PO (09:37)
--- NOTE | 2020-09-26 10:00 | PM.DS.1 ---
History of Present Illness History of Present Illness Date Patient Seen: 09/26/20 Time Patient Seen: 10:00 Chief complaint: OPB Narrative: Pain [id number]. Denies fever or chills. No shortness of breath or chest pain. Her is home to assist her. Discharge Providers Provider Date of admission: 09/25/20 13:52 Discharge Date: 09/26/20 Primary care physician: Travis Narvaez MD Consults: 09/24/20 06:00 Consult to Anesthesiology Routine Comment: Consulting Provider: Anesthesiologist Reason for consultation: Regional block for post operative pain control 09/24/20 15:35 Consult to Discharge Planning Routine Comment: Consult to Physical Therapy Evaluate & Treat Comment: Physician Instructions: postop TKA protocol Consult to Respiratory Therapy Evaluate & Treat Comment: Physician Instructions: Evaluate and treat Discharge provider: Watson Gresham PA-C Summary Hospital Course Discharge Diagnosis: Left knee osteoarthritis Hospital Course: Left total knee arthroplasty Same procedure as scheduled: Yes Indications: The patient has had progressively worsening left knee pain with radiographic changes consistent with arthritis. Non-operative management has failed and the patient has requested total knee replacement. The risks, benefits and alternatives to surgery were discussed with the patient prior to proceeding. Risks discussed included, but were not limited to, failure to relieve pain, stiffness, infection, nerve damage, deep venous thrombosis, pulmonary embolism, stroke, coma, heart attack, permanent paralysis and , as well as the potential need for eventual revision of the prosthetic. Surgeon: Susan Talbot Commercial Art Instructor: Watson Gresham Anesthesia Type: General and Spinal Operative Notes Findings: Severe left knee osteoarthritis, acceptable tracking of the patella, adequate stability Closure Type: primary Specimen(s): none sent Prosthetic devices, grafts, tissues, transplants, or devices: [employer] to size 4 femur, size 3 tibia, +9 poly, 32 x 7.5 mm patella Applied: drain(s) Estimated Blood Loss (mL): 250 Blood products transfused: none Tourniquet time (min): 69 Patient progressing as expected status post left total knee arthroplasty. Patient required quite a bit of assistance mobilizing yesterday due to pain. Her mobility and pain has improved. Her is home to assist her. We will discharge her home today in stable condition. Status at Discharge Cognitive/behavioral status at discharge: at baseline, oriented Functional status at discharge: uses cane/walker Overall status at discharge: patient is progressing back to baseline Time Spent with Patient Time spent: Less than 30 minutes Exam Vital Signs (past 8 hours): - 09/26/20 08:34 09/26/20 09:33 09/26/20 09:37 Temperature 97.3 F L Pulse Rate 59 L 59 L 59 L Respiratory Rate 16 Blood Pressure 154/67 H 154/67 H 154/67 H Pulse Oximetry 99 Oxygen Delivery Method Room Air Oxygen Flow Rate 0 Narrative Exam Narrative: 75-year-old female resting comfortably in bedside chair in no apparent distress. Left knee dressing is clean, dry and intact. Sensation grossly intact to light touch bilateral lower extremities. Motor functions intact bilateral lower extremities. Both legs are warm and dry. Objective Labs Result Diagrams: 09/25/20 04:40 PFSH Medical History Anxiety Arthritis Breast cancer, left (~2016) Cellulitis (~2010) HTN (hypertension) Osteoarthritis Pedal edema Pre-diabetes Rosacea Seasonal allergies Thin skin Venous insufficiency Surgical History History of arthroplasty of right knee (10/10/19) History of hammer toe correction History of partial mastectomy of left breast (~2016) Hx of appendectomy Hx of bilateral cataract extraction Family History Sister Type II diabetes mellitus Essential hypertension Social History household members: spouse Smoking Status: Former smoker alcohol intake: never Discharge Assessment & Plan Assessment and Plan Assessment: Postop day 2 status post left total knee arthroplasty. Patient progressing as expected. Plan of Treatment: Discharge home today in stable condition. Discharge Plan Discharge Plan Patient Disposition: Home Provider Discharge Comment: Discharge to home when cleared by physical therapy Discharge orders & Medications Prescriptions: New oxycodone 5 mg capsule 5 mg PO Q6H PRN (Reason: pain) Qty: 30 RF: 0 hydroxyzine pamoate 25 mg Capsule 25 mg PO Q6HR PRN (Reason: Muscle Spasm) Qty: 45 RF: 0 Continued clonidine HCl 0.1 mg tablet 0.1 mg PO TID RF: 0 amlodipine 5 mg tablet 5 mg PO QPM RF: 0 hydrochlorothiazide 25 mg Tablet 25 mg PO DAILY RF: 0 losartan 100 mg Tablet 100 mg PO DAILY RF: 0 tamoxifen 20 mg Tablet 20 mg PO DAILY RF: 0 fexofenadine 180 MG tablet 180 mg PO QPM RF: 0 aspirin 81 mg Tablet,Delayed Release (Dr/Ec) 81 mg PO DAILY RF: 0 acetaminophen 500 mg Tablet 500 mg PO BID PRN (Reason: Pain) RF: 0 Follow up/Referrals: Travis Narvaez MD [Primary Care Provider] - Susan Talbot MD [Physician] - (2 weeks) Diet/Activity/Treatments Diet: Diet as Tolerated Activity: Walk as tolerated. Cold/Heat Therapy: Use ice on knee multiple times a day. Other treatments: Use aspirin to prevent a blood clot. Skin/Wound/Dressing Care Report to your healthcare provider any signs of infection, such as:: chills, fever, night sweats, increased pain, unusual drainage and unusual redness Dressing: Leave dressing on. Okay to shower. Visit Report/Discharge Packet Instructions: DI for Knee Replacement Stand Alone Forms: Surgery Discharge Discharge Data Primary Care Provider: Travis Narvaez Attending Provider: Susan Talbot Quality VTE Deep Vein Thrombosis/Pulmonary Embolism Present on Admission: No
--- NOTE | 2020-09-26 10:34 | PT.IPTN ---
Current Diagnoses Unilateral primary osteoarthritis, left knee (09/25/20) Surgery Performed Operation Date: 09/24/20 11:30 Actual Procedures p Total Knee Arthroplasty(Left) - Susan Talbot MD Physical Therapy Treatment Note M2 PT-IP Current Condition Start: 09/25/20 12:32 Freq: NEEDED Status: Active Protocol: Document 09/25/20 09:32 AB (Rec: 09/25/20 12:51 AB [email or web address]) Physical Therapy Current Condition Current Condition Evaluation Date 09/25/20 Treatment Diagnosis s/p L TKA; difficulty in walking Onset Date 09/24/20 Weight Bearing Status Weight Bearing Status Weight Bear as Tolerated Allowed Weight Bearing Amount (enter % LLE WBAT or #) (%) M3 PT-IP Subjective Start: 09/25/20 12:32 Freq: NEEDED Status: Active Protocol: Document 09/26/20 10:09 KS (Rec: 09/26/20 11:17 KS [id number]) Subjective Physical Therapy Visit Type Type Treatment Note Visit Start Time 10:09 Visit Stop Time 10:34 Total Visit Minutes 25 Number of THORACIC SURGEON Visits 1 Physical Therapy Visit Comments Patient Comments pt is agreeable to do PT. Pts present for caregiver training. M4 PT-IP Mobility and Gait Start: 09/25/20 12:32 Freq: NEEDED Status: Active Protocol: Document 09/26/20 10:09 KS (Rec: 09/26/20 11:17 KS [id number]) PT-Bed Mobility Assessment Supine to Sit Supine to Sit Contact Guard Assistance,1 Person Assistance Sit to Supine Sit to Supine Standby Assistance Scooting Scooting to Edge of Bed Standby Assistance PT-Transfer Assessment Sit to and From Stand Sit to and from Stand Contact Guard Assistance,1 Person Assistance,Use of Upper Extremities Equipment Transfer Assistive Device Gait Belt,Front Wheeled Walker Orthotic/Prosthetic Devices or Brace: No Transfers Transfer Destination Bed,Chair,Toilet Transfer Technique ambulated w/ FWW Transfer Ability Level of Assist Contact Guard Assistance,1 Person Assistance,Use of Upper Extremities Comments Mobility Comments Pt in chair upon arrival from therapy w/ in room. Pt sit<>Stand w/ FWW and CGA provided by . She then ambulated ~100 ft w/ FWW CGA by and returned to room where she performed bed mobility CGA w/ gait belt for self assist to LE. She was then able to ambulated, transfers from toilet, walk to sink and wash hand and transfer back to chair all SBA . Pts was able to provide appropriate cues and assist throughout treatment and pt and state they feel safe to return home. Pt left in room w/ all needs in reach. Gait Assessment Gait Gait Assistance Required: Standby Assistance,Contact Guard Assist,1 Person Assist Distance (Feet) 100 Able to Maintain Weight Bearing Status Yes During Gait Assistive Devices Assistive Device Gait Belt,Front Wheeled Walker Orthotic/Prosthetic Devices or Brace: No Gait Deviations General Gait Pattern Antalgic,Decreased Stride Length,Decreased Feet Clearance Factors Limiting Gait Function Factors Limiting Gait Function Decreased Activity Tolerance, Decreased Strength,Limited Range of Motion,Pain,Poor Balance Comments Gait Comments pls refer to mobility section for details Stair Climbing Assessment Comments Stair Climbing Comments no stairs at home M5 PT-IP Objective Assessments Start: 09/25/20 12:32 Freq: NEEDED Status: Active Protocol: Document 09/25/20 09:32 AB (Rec: 09/25/20 12:51 AB [facility] [email or web address]) Orientation Orientation/Cognition Level of Alertness Alert Orientation Name,Place,Situation Language Function Ability No Deficits Noted Safety Awareness Decreased Safety Awareness Gross Range of Motion Lower Extremity ROM Assessment Left Impaired Impairments L knee flexion limited due to c/o pain preventing further movement Strength Lower Extremity Strength Assessment Left Impaired Hip 3+/5 Knee 3+/5 Sensation Assessment Sensation Gross Sensation WNL Muscle Tone Muscle Tone WNL Yes M6 PT-IP Treatment Start: 09/25/20 12:32 Freq: NEEDED Status: Active Protocol: Document 09/26/20 10:09 ID (Rec: 09/26/20 11:17 ID [id number]) Physical Therapy Treatment Exercises Exercises Ankle Pumps,Gluteal Sets,Quad Sets,Heel Slides Education Education Provided Safety M7 PT-IP Assessment and Plan Start: 09/25/20 12:32 Freq: NEEDED Status: Active Protocol: Document 09/26/20 10:09 KS (Rec: 09/26/20 11:17 ID [id number]) PT Summary Assessment and Plan Potential Rehabilitation Potential Good Summary Impairments Pain,ROM,Strength,Balance, Coordination,Sensation,Tone, Cognition,Bed Mobility, Transfers,Gait,Activity Tolerance Progress Towards Goals Progressing Toward Goals Assessment Summary Completed caregiver training w / pts who was able to privde appropriate cues and assist as well as application of gaitbelt to pt throughout treatment. Pt ambulated ~100 ft w/ FWW safely w/ CGA, performed transfers from bed to chair and to toilet SBA to CGA, and bed mobility CGA. Pt verbalized decrease in pain and increase in ability to mobilize. Pt and state they feel safe to return home . Pt will benefit from outpatient rehab to improve strength and ROM, which she has set up to begin next month . Goals Bed Mobility Goal Standby Assistance Transfer Goal Standby Assistance,Front Wheeled Walker Gait Goal Standby Assistance,Front Wheel Walker Gait Distance 150 Days to Meet Goals 5 Frequency of Treatment Frequency Of Treatment Twice a Day Treatment Plan Physical Therapy Treatment Plan Bed Mobility Training,Transfer Training,Gait Training, Therapeutic Exercise,Balance Retraining,Post Op Education, Discharge Planning,Hot or Cold Pack,Neuromuscular Re-ed, Coordination Retraining,Manual Therapy Recommendations To Nursing Amount of Assist Needed 1 Person Assist Discharge Recommendations PT Discharge Recommendations Home with 24/7 Assist,Home Health,Outpatient PT Other Discharge Recommendations depending on progress: home with 24/7 and HHPT vs outpt PT Transportation Needs at Discharge Private Vehicle
--- NOTE | 2020-09-26 10:34 | PT.IPTN ---
Current Diagnoses Unilateral primary osteoarthritis, left knee (09/25/20) Surgery Performed Operation Date: 09/24/20 11:30 Actual Procedures p Total Knee Arthroplasty(Left) - Susan Talbot MD Physical Therapy Treatment Note M2 PT-IP Current Condition Start: 09/25/20 12:32 Freq: NEEDED Status: Active Protocol: Document 09/25/20 09:32 AB (Rec: 09/25/20 12:51 AB [email or web address]) Physical Therapy Current Condition Current Condition Evaluation Date 09/25/20 Treatment Diagnosis s/p L TKA; difficulty in walking Onset Date 09/24/20 Weight Bearing Status Weight Bearing Status Weight Bear as Tolerated Allowed Weight Bearing Amount (enter % LLE WBAT or #) (%) M3 PT-IP Subjective Start: 09/25/20 12:32 Freq: NEEDED Status: Active Protocol: Document 09/26/20 10:09 KS (Rec: 09/26/20 11:17 KS [id number]) Subjective Physical Therapy Visit Type Type Treatment Note Visit Start Time 10:09 Visit Stop Time 10:34 Total Visit Minutes 25 Number of QUALITY CONTROL ANALYST Visits 1 Physical Therapy Visit Comments Patient Comments pt is agreeable to do PT. Pts present for caregiver training. M4 PT-IP Mobility and Gait Start: 09/25/20 12:32 Freq: NEEDED Status: Active Protocol: Document 09/26/20 10:09 KS (Rec: 09/26/20 11:17 KS [id number]) PT-Bed Mobility Assessment Supine to Sit Supine to Sit Contact Guard Assistance,1 Person Assistance Sit to Supine Sit to Supine Standby Assistance Scooting Scooting to Edge of Bed Standby Assistance PT-Transfer Assessment Sit to and From Stand Sit to and from Stand Contact Guard Assistance,1 Person Assistance,Use of Upper Extremities Equipment Transfer Assistive Device Gait Belt,Front Wheeled Walker Orthotic/Prosthetic Devices or Brace: No Transfers Transfer Destination Bed,Chair,Toilet Transfer Technique ambulated w/ FWW Transfer Ability Level of Assist Contact Guard Assistance,1 Person Assistance,Use of Upper Extremities Comments Mobility Comments Pt in chair upon arrival from therapy w/ in room. Pt sit<>Stand w/ FWW and CGA provided by . She then ambulated ~100 ft w/ FWW CGA by and returned to room where she performed bed mobility CGA w/ gait belt for self assist to LE. She was then able to ambulated, transfers from toilet, walk to sink and wash hand and transfer back to chair all SBA . Pts was able to provide appropriate cues and assist throughout treatment and pt and state they feel safe to return home. Pt left in room w/ all needs in reach. Gait Assessment Gait Gait Assistance Required: Standby Assistance,Contact Guard Assist,1 Person Assist Distance (Feet) 100 Able to Maintain Weight Bearing Status Yes During Gait Assistive Devices Assistive Device Gait Belt,Front Wheeled Walker Orthotic/Prosthetic Devices or Brace: No Gait Deviations General Gait Pattern Antalgic,Decreased Stride Length,Decreased Feet Clearance Factors Limiting Gait Function Factors Limiting Gait Function Decreased Activity Tolerance, Decreased Strength,Limited Range of Motion,Pain,Poor Balance Comments Gait Comments pls refer to mobility section for details Stair Climbing Assessment Comments Stair Climbing Comments no stairs at home M5 PT-IP Objective Assessments Start: 09/25/20 12:32 Freq: NEEDED Status: Active Protocol: Document 09/25/20 09:32 AB (Rec: 09/25/20 12:51 AB [email or web address]) Orientation Orientation/Cognition Level of Alertness Alert Orientation Name,Place,Situation Language Function Ability No Deficits Noted Safety Awareness Decreased Safety Awareness Gross Range of Motion Lower Extremity ROM Assessment Left Impaired Impairments L knee flexion limited due to c/o pain preventing further movement Strength Lower Extremity Strength Assessment Left Impaired Hip 3+/5 Knee 3+/5 Sensation Assessment Sensation Gross Sensation WNL Muscle Tone Muscle Tone WNL Yes M6 PT-IP Treatment Start: 09/25/20 12:32 Freq: NEEDED Status: Active Protocol: Document 09/26/20 10:09 NH (Rec: 09/26/20 11:17 NH [id number]) Physical Therapy Treatment Exercises Exercises Ankle Pumps,Gluteal Sets,Quad Sets,Heel Slides Education Education Provided Safety M7 PT-IP Assessment and Plan Start: 09/25/20 12:32 Freq: NEEDED Status: Active Protocol: Document 09/26/20 10:09 KS (Rec: 09/26/20 11:17 NH [id number]) PT Summary Assessment and Plan Potential Rehabilitation Potential Good Summary Impairments Pain,ROM,Strength,Balance, Coordination,Sensation,Tone, Cognition,Bed Mobility, Transfers,Gait,Activity Tolerance Progress Towards Goals Progressing Toward Goals Assessment Summary Completed caregiver training w / pts who was able to privde appropriate cues and assist as well as application of gaitbelt to pt throughout treatment. Pt ambulated ~100 ft w/ FWW safely w/ CGA, performed transfers from bed to chair and to toilet SBA to CGA, and bed mobility CGA. Pt verbalized decrease in pain and increase in ability to mobilize. Pt and state they feel safe to return home . Pt will benefit from outpatient rehab to improve strength and ROM, which she has set up to begin next month . Goals Bed Mobility Goal Standby Assistance Transfer Goal Standby Assistance,Front Wheeled Walker Gait Goal Standby Assistance,Front Wheel Walker Gait Distance 150 Days to Meet Goals 5 Frequency of Treatment Frequency Of Treatment Twice a Day Treatment Plan Physical Therapy Treatment Plan Bed Mobility Training,Transfer Training,Gait Training, Therapeutic Exercise,Balance Retraining,Post Op Education, Discharge Planning,Hot or Cold Pack,Neuromuscular Re-ed, Coordination Retraining,Manual Therapy Recommendations To Nursing Amount of Assist Needed 1 Person Assist Discharge Recommendations PT Discharge Recommendations Home with 24/7 Assist,Home Health,Outpatient PT Other Discharge Recommendations depending on progress: home with 24/7 and HHPT vs outpt PT Transportation Needs at Discharge Private Vehicle
--- NOTE | 2020-09-26 11:36 | PC.NURSE ---
Discharge note: Patient discharged home, cleared by PT. Discharge instructions given to both patient and spouse. Discussed importance of F/U with Ortho in 2 weeks, s/sx of infections, mobility precautions and dressing care. Both verbalized understanding of discharge instructions. Dressed self with minimal assistance, had BM this am, and tolerating PO intake. HOme via private vehicle accompanied by spouse.
== END 2020-09-26 11:30 | disposition home or self-care (01) ==
LOC: OR 13:59 → AC 13:59
PROVIDERS: Admitting Provider Orthopaedic Surgery; Family Provider Internal Medicine; PCP Internal Medicine; Referring Provider Orthopaedic Surgery; Visit Provider Orthopaedic Surgery
PROC: 0SRD0JZ Replacement of Left Knee Joint with Synthetic Substitute, Open Approach (ICD-10-PCS; CPT 27447; principal; 2020-09-24 11:30)
DX: M17.12 Unilateral primary osteoarthritis, left knee (principal); I10 Essential (primary) hypertension; E66.9 Obesity, unspecified; Z68.38 Body mass index [BMI] 38.0-38.9, adult
CPT/HCPCS: 27447; 36415; 73560; 85014; 85018; 97116; 97162; 97530; C1776; G0378; C9290; J0690; J2250; J2704; J3010

== ENCOUNTER → 2020-11-02 09:59 | Outpatient (CLI) | payer MEDICARE, SELFPAY ==
[2019-10-10 18:01] VITALS: BMI 43.0
[2020-09-24 09:35] VITALS: BMI 42.3
--- NOTE | 2020-11-02 | DI.MG.S_ITS ---
BILATERAL DIGITAL SCREENING MAMMOGRAM 3D/2D WITH CAD POST LUMPECTOMY: 11/02/2020 CLINICAL: Routine screening. Personal history of left breast cancer. Comparison is made to exams dated: 10/31/2019 mammogram, 10/30/2018 mammogram, and 12/12/2017 mammogram - [facility]. There are scattered fibroglandular elements in both breasts. Current study was also evaluated with a Computer Aided Detection (CAD) system. There are grouped heterogeneous calcifications in the left breast at 6 o'clock middle depth. These are more prominent and increased in number and are seen in association with site of prior surgery for malignancy. No other significant masses, calcifications, or other findings are seen in either breast. IMPRESSION: INCOMPLETE: NEEDS ADDITIONAL IMAGING EVALUATION The grouped heterogeneous calcifications in the left breast are indeterminate. Diagnostic mammogram to include mediolateral and spot magnification views as well as possible ultrasound are recommended. This exam was interpreted at Station ID: [id number]. NOTE: For mammograms, a report in lay terms will be sent to the patient. Approximately 15% of breast malignancies will not be visualized mammographically. In the management of a palpable breast mass, a negative mammogram must not discourage biopsy of a clinically suspicious lesion. Electronically Signed By: Jose Grayson M.D. aty/:11/02/2020 12:59:08 copy to: [facility] letter sent: Additional Imaging Needed ACR BI-RADS Category 0: Incomplete 3340F
== END ==
PROVIDERS: Family Provider Internal Medicine; PCP Internal Medicine; Referring Provider Internal Medicine; Visit Provider Internal Medicine
DX: Z12.31 Encounter for screening mammogram for malignant neoplasm of breast (principal); Z85.3 Personal history of malignant neoplasm of breast
CPT/HCPCS: 77063; 77067

== ENCOUNTER → 2020-11-20 13:14 | Outpatient (CLI) | payer MEDICARE, SELFPAY ==
[2020-09-24 09:35] VITALS: BMI 42.3
--- NOTE | 2020-11-20 | DI.MG.S_ITS ---
UNILATERAL LEFT DIGITAL DIAGNOSTIC MAMMOGRAM 3D/2D WITH ADDITIONAL VIEWS POST LUMPECTOMY: 11/20/2020 CLINICAL: Additional evaluation requested from prior study. Comparison is made to exams dated: 11/02/2020 mammogram, 10/31/2019 mammogram, 10/30/2018 mammogram, 12/21/2017 mammogram, and 12/12/2017 mammogram - [facility]. There are scattered fibroglandular elements in left breast. There are grouped heterogeneous calcifications in the left breast at 6 o'clock middle depth. These are more prominent and increased in number. There is a post-surgical scar associated with the calcifications. No other significant masses or calcifications are seen in the breast. There are benign vascular calcifications. IMPRESSION: SUSPICIOUS OF MALIGNANCY The grouped heterogeneous calcifications in the left breast are at a low suspicion for malignancy. Initial cancer presented as a mass. Calcifications have a differential diagnosis of post lumpectomy fat necrosis. A stereotactic biopsy is recommended. Exam findings were discussed with the patient over the phone. The patient would like to biopsy rather than follow-up imaging. This exam was interpreted at Station ID: [id number]. NOTE: For mammograms, a report in lay terms will be sent to the patient. Approximately 15% of breast malignancies will not be visualized mammographically. In the management of a palpable breast mass, a negative mammogram must not discourage biopsy of a clinically suspicious lesion. Electronically Signed By: Yovanny Zendejas M.D. slc/:11/20/2020 14:08:53 copy to: [facility] letter sent: Biopsy Required ACR BI-RADS Category 4a: Suspicious abnormality - low suspicion for malignancy 3344F
== END ==
PROVIDERS: Family Provider Internal Medicine; PCP Internal Medicine; Referring Provider Internal Medicine; Visit Provider Internal Medicine
DX: R92.8 Other abnormal and inconclusive findings on diagnostic imaging of breast (principal); R92.1 Mammographic calcification found on diagnostic imaging of breast
CPT/HCPCS: 77065; G0279

== ENCOUNTER → 2022-07-27 11:30 | Outpatient (CLI) | payer OTHER, SELFPAY ==
[2020-09-24 09:35] VITALS: BMI 42.3
== END ==
PROVIDERS: Family Provider Internal Medicine; PCP Internal Medicine; Referring Provider Internal Medicine; Visit Provider Internal Medicine
DX: Z13.820 Encounter for screening for osteoporosis (principal); Z78.0 Asymptomatic menopausal state; Z79.890 Hormone replacement therapy
CPT/HCPCS: 77080

== ENCOUNTER 2022-12-08 13:01 | Emergency (ER) | payer OTHER, SELFPAY ==
[2020-09-24 09:35] VITALS: BMI 42.3
[2022-12-08] VITALS (14 sets, daily range): BP systolic 119–187; BP diastolic 56–83; PULSE 70–85; RESP 16–18; TEMP 36.3–36.7; O2SAT 96–99; BMI 34.1
--- NOTE | 2022-12-08 13:17 | DI.US.S_ITS ---
PROCEDURE: US ABDOMEN LIMITED INDICATIONS: PAINLESS JAUNDICE TECHNIQUE: Real-time focused scanning was performed of the abdomen, with image documentation. COMPARISON: [facility], US, ABDOMEN COMPLETE, 02/24/2016, 9:31. FINDINGS: Liver is mildly enlarged measuring 20 cm in length. Liver is hyperechoic, likely secondary to hepatic fatty infiltration. There is sludge within the bladder. No gallbladder wall thickening, pericholecystic fluid or sonographic Thomson's sign. Common bile duct is dilated measuring up to 14.1 mm. Visualized pancreas is unremarkable. IMPRESSION: 1. Diffusely increased hepatic echotexture. This finding is most likely secondary to hepatic fatty infiltration although other hepatocellular disease may have a similar appearance. Recommend clinical correlation. 2. Sludge in gallbladder. 3. Dilated common bile duct. Cannot exclude distal common bile duct obstruction. Recommend MRCP for further evaluation. Dictated by: Joyce Conde M.D. on 12/08/2022 at 15:03 Approved by: Joyce Conde M.D. on 12/08/2022 at 15:06
[2022-12-08 13:37] LABS: Add Manual Diff / Slide Review NO; Basophils Absolute Auto 0 /uL (0-100); Basophils Percent Auto 0.3 % (0-2); Eosinophils Absolute Auto 100 /uL (0-450); Eosinophils Percent Auto 1.9 % (2-4); Hematocrit 38.4 % (36-46); Hemoglobin 12.8 g/dL (12.0-16.0); Lymphocytes Absolute Auto 900 /uL (1100-4500); Lymphocytes Percent Auto 15.6 % (25-40); Mean Corpuscular HGB Conc 33.2 % (30-36); Mean Corpuscular Volume 93.5 fL (80-100); Monocytes Absolute Auto 500 /uL (0-900); Monocytes Percent Auto 9.4 % (3-14); Neutrophils Absolute Auto 4000 /uL (1500-7000); Neutrophils Percent Auto 72.8 % (50-75); Platelet Count 152 X10^3/uL (150-400); Red Blood Cell Count 4.11 X10^6/uL (4.0-5.2); Red Cell Distribution Width 14.9 % (11.6-14.8); White Blood Cell Count 5.5 X10^3/uL (4.5-11.0)
[2022-12-08 13:44] LABS: INR 1.1 (0.9-1.3); Prothrombin Time 13.1 SECONDS (10.1-12.7)
[2022-12-08 13:54] LABS: Acetaminophen < 10 ug/mL (10-30); Alanine Aminotransferase 453 IU/L (<35); Albumin 3.8 g/dL (3.5-5.0); Alkaline Phosphatase 210 U/L (38-126); Aspartate Aminotransferase 209 IU/L (14-36); BUN Creatinine Ratio 33.9 (6-22); Bilirubin Total 10.6 mg/dL (0.2-1.3); Blood Urea Nitrogen 21 mg/dL (7-17); Calcium 9.5 mg/dL (8.4-10.2); Carbon Dioxide 27 mmol/L (22-32); Chloride 99 mmol/L (98-107); Estimated Glomerular Filt Rate > 60 mL/min (>60); Globulin 3.7 g/dL (1.7-4.1); Glucose 158 mg/dL (80-110); HEMOLYSIS < 15 (0-50); Lipase 247 U/L (23-300); Potassium 3.3 mmol/L (3.4-5.1); Sodium 137 mmol/L (137-145); Total Protein 7.5 g/dL (6.3-8.2)
[2022-12-08 13:55] LABS: Ammonia (NH3) < 9 umol/L (9-30)
[2022-12-08 14:03] LABS: Appearance Urine UA SL CLOUDY; Bilirubin Urine UA 2+ (NEGATIVE); Color Urine UA YELLOW; Glucose Urine UA NEGATIVE (Negative); Ketones Urine UA NEGATIVE (NEGATIVE); Leukocyte Esterase Urine UA TRACE (NEGATIVE); Nitrite Urine UA NEGATIVE (Negative); Occult Blood Urine UA NEGATIVE (Negative); Protein Urine UA NEGATIVE (Negative); Urobilinogen Urine UA 0.2 E.U./dL (0.2)
[2022-12-08 14:16] LABS: pH Urine UA 5.5 (4.5-8.0)
[2022-12-08 14:22] LABS: Ictotest Urine Positive (Negative)
[2022-12-08 14:23] LABS: Bacteria Urine Few (2-10); Culture Indicated Urine Specimen Cultured; RBC Urine 0-1/HPF (0-5/HPF); Squamous Epithelial Cell Urine 1-5 /HPF (0-5/HPF); WBC Urine 0-1/HPF (0-5/HPF)
--- NOTE | 2022-12-08 14:30 | PC.NURSE ---
Pt ambulated to room, aaox4/4, breathing even and unlabored. Yellow tint noted to skin and eye sclera. Pt denies pain or discomfort.
--- NOTE | 2022-12-08 15:06 | ED.RECABL ---
HPI - Recheck/Abnormal Lab/Rx <Lukas Brandt DO - Last Filed: 12/10/22 18:17> General Chief Complaint: Recheck/Abnormal Lab/Rx Stated Complaint: sent by DR debbie greenberg T-2 Time Seen by Provider: 12/08/22 13:17 Source: patient Mode of arrival: Ambulatory History of Present Illness HPI narrative: 77F former smoker with history of hypertension presents at the request of her primary care provider for evaluation of gradually worsening painless jaundice for the past few days. She has no pain, nausea or vomiting. She denies any fever or chills. She has had some unexplained weight loss over the past few weeks and a poor appetite. She denies any history of alcohol abuse, IV drug abuse, use of Tylenol or travel. She denies any new medications or dietary change otherwise. She has had some change in the caliber of her stool. Related Data Home Medications Medication Instructions Recorded Confirmed amlodipine 5 mg tablet 5 mg PO QPM 11/19/18 12/08/22 clonidine HCl 0.1 mg tablet 0.1 mg PO TID 11/19/18 12/08/22 acetaminophen 500 mg tablet 500 mg PO BID PRN Pain 09/26/19 12/08/22 aspirin 81 mg tablet,delayed 81 mg PO DAILY 09/26/19 12/08/22 release hydrochlorothiazide 25 mg tablet 25 mg PO DAILY 09/26/19 12/08/22 losartan 100 mg tablet 100 mg PO DAILY 09/26/19 12/08/22 tamoxifen 20 mg tablet 20 mg PO DAILY 09/26/19 12/08/22 metformin 500 mg tablet 500 mg PO DAILY 12/08/22 12/08/22 Previous Rx's Medication Instructions Recorded CMP Estriol Vaginal Cream 0.01% See Rx Instructions .Route 01/26/21 .COMPLEX #30 grams oxybutynin chloride 5 mg tablet See Rx Instructions .Route 07/13/22 .COMPLEX #90 tabs Allergies Allergy/AdvReac Type Severity Reaction Status Date / Time doxycycline [DOXYCYCLINE] Allergy Severe RASH Verified 12/08/22 13:04 fluoxetine [FLUOXETINE] AdvReac Severe Tachycardia, Verified 12/08/22 13:04 nervousness lisinopril [LISINOPRIL] AdvReac Severe COUGH Verified 12/08/22 13:04 Review of Systems <Lukas Brandt DO - Last Filed: 12/10/22 18:17> Review of Systems Narrative: GENERAL: see HPI HEENT: Denies sinus pain, ear pain, sore throat, difficulty swallowing, dizziness. RESPIRATORY: Denies dyspnea, cough, wheezing, hemoptysis, sputum. CARDIOVASCULAR: Denies chest pain, palpitations, orthopnea, edema, GASTROINTESTINAL: see HPI : Denies dysuria, frequency, incontinence, hematuria, urinary retention. MUSCULOSKELETAL: denies weakness, joint pain, or bony pain SKIN: Denies rash, skin lesions, or other NEUROLOGIC: Denies weakness, headache, numbness, change in speech, confusion, seizures, incoordination. PSYCHIATRIC: No concerning psychosocial issues. 12 point review of systems is negative except for those stated above Patient History <Lukas Brandt DO - Last Filed: 12/10/22 18:17> Medical History Anxiety Arthritis Breast cancer, left (~2016) Cellulitis (~2010) HTN (hypertension) Osteoarthritis Pedal edema Pre-diabetes Rosacea Seasonal allergies Thin skin Venous insufficiency Surgical History History of arthroplasty of right knee (10/10/19) History of hammer toe correction History of partial mastectomy of left breast (~2016) Hx of appendectomy Hx of bilateral cataract extraction Family History Sister Type II diabetes mellitus Essential hypertension Social History household members: spouse Smoking Status: Former smoker alcohol intake: never Smoking Status: Former smoker alcohol intake frequency: holidays/special occasions only Substance Use Type: does not use Exam <Lukas Brandt DO - Last Filed: 12/10/22 18:17> Narrative Exam Narrative: GENERAL: 77 year old patient appears stated age. Well-developed patient, in mild distress. HEAD: Atraumatic. Normocephalic. EYES: Pupils equal round and reactive. Extraocular motions intact. Scleral icterus No injection or drainage. ENT: Nose without bleeding, purulent drainage. Throat without erythema, tonsillar hypertrophy or exudate. Airway patent. NECK: Trachea midline. Non tender CARDIOVASCULAR: Regular rate and rhythm without murmurs, gallops, or rubs. RESPIRATORY: Clear to auscultation. Breath sounds equal bilaterally. No wheezes, rales, or rhonchi. GASTROINTESTINAL: Abdomen soft, non-tender, nondistended. EXTREMITIES: No edema or joint tenderness. BACK: Nontender without deformity or crepitance. No flank tenderness. NEURO: AOx3. SKIN: Jaundice Initial Vital Signs Initial Vital Signs: Vital Signs Temperature 97.3 F L 12/08/22 13:04 Pulse Rate 81 12/08/22 13:04 Respiratory Rate 16 12/08/22 13:04 Blood Pressure 187/83 H 12/08/22 13:04 Pulse Oximetry 99 12/08/22 13:04 Oxygen Delivery Method 12/08/22 13:04 <Jian Kim DO - Last Filed: 12/09/22 05:02> Initial Vital Signs Initial Vital Signs: Vital Signs Temperature 97.3 F L 12/08/22 13:04 Pulse Rate 81 12/08/22 13:04 Respiratory Rate 16 12/08/22 13:04 Blood Pressure 187/83 H 12/08/22 13:04 Pulse Oximetry 99 12/08/22 13:04 Oxygen Delivery Method 12/08/22 13:04 Course <Lukas Brandt DO - Last Filed: 12/10/22 18:17> Orders Ordered: Discontinued Medications Lorazepam (Lorazepam 2 Mg/Ml Inj) 0.5 mg IV NOW ONE Stop: 12/08/22 15:46 Last Admin: 12/08/22 15:51 Dose: 0.5 mg Documented By: AT Consultations Consultation #1: Discussed with GI (Jone) at [facility]. Needs transfer for ERCP. No current beds calls to Vital Signs Vital signs: Vital Signs - 8 hr 12/08/22 23:02 12/09/22 01:12 Temperature 98.5 F Pulse Rate 77 72 Respiratory Rate 18 20 Blood Pressure 132/63 Pulse Oximetry 98 96 Oxygen Delivery Method Room Air Room Air <Jian Kim DO - Last Filed: 12/09/22 05:02> Orders Ordered: Discontinued Medications Lorazepam (Lorazepam 2 Mg/Ml Inj) 0.5 mg IV NOW ONE Stop: 12/08/22 15:46 Last Admin: 12/08/22 15:51 Dose: 0.5 mg Documented By: AT Vital Signs Vital signs: Vital Signs - 8 hr 12/08/22 23:02 12/09/22 01:12 Temperature 98.5 F Pulse Rate 77 72 Respiratory Rate 18 20 Blood Pressure 132/63 Pulse Oximetry 98 96 Oxygen Delivery Method Room Air Room Air MDM - Recheck/Abnormal Lab/Rx <Lukas Brandt - Last Filed: 12/10/22 18:17> Lab Data 12/08/22 13:24 12/08/22 13:24 Labs: Lab Results 12/08/22 12/08/22 12/08/22 Range/Units 13:24 13:24 13:24 WBC 5.5 (4.5-11.0) X10^3/uL RBC 4.11 (4.0-5.2) X10^6/uL Hgb 12.8 (12.0-16.0) g/dL Hct 38.4 (36-46) % MCV 93.5 (80-100) fL MCH 31.0 (26-34) PG MCHC 33.2 (30-36) % RDW 14.9 H (11.6-14.8) % Plt Count 152 (150-400) X10^3/uL Neut % (Auto) 72.8 (50-75) % Lymph % (Auto) 15.6 L (25-40) % Cooke % (Auto) 9.4 (3-14) % Eos % (Auto) 1.9 L (2-4) % Baso % (Auto) 0.3 (0-2) % Neut # (Auto) 4000 (9081-5920) /uL Lymph # (Auto) 900 L (4184-4407) /uL Cooke # (Auto) 500 (0-900) /uL Eos # (Auto) 100 (0-450) /uL Baso # (Auto) 0 (0-100) /uL PT 13.1 H (10.1-12.7) SECONDS INR 1.1 (0.9-1.3) Sodium 137 (137-145) mmol/L Potassium 3.3 L (3.4-5.1) mmol/L Chloride 99 (98-107) mmol/L Carbon Dioxide 27 (22-32) mmol/L BUN 21 H (7-17) mg/dL Creatinine 0.62 (0.52-1.04) mg/dL Estimated GFR > 60 (>60) mL/min BUN/Creatinine Ratio 33.9 H (6-22) Glucose 158 H (80-110) mg/dL Calcium 9.5 (8.4-10.2) mg/dL Total Bilirubin 10.6 H (0.2-1.3) mg/dL AST 209 H (14-36) IU/L ALT 453 H (<35) IU/L Alkaline Phosphatase 210 H (38-126) U/L Ammonia (9-30) umol/L Total Protein 7.5 (6.3-8.2) g/dL Albumin 3.8 (3.5-5.0) g/dL Globulin 3.7 (1.7-4.1) g/dL Albumin/Globulin Ratio 1.0 (1.0-2.8) Lipase 247 (23-300) U/L Urine Color Urine Appearance Urine pH (4.5-8.0) Ur Specific Grover (1.000-1.035) Urine Protein (Negative) Urine Glucose (UA) (Negative) g/dL Urine Ketones (NEGATIVE) Urine Occult Blood (Negative) Urine Nitrate (Negative) Urine Bilirubin (NEGATIVE) Ur Bilirubin Confirm (Negative) Urine Urobilinogen (0.2) E.U./dL Ur Leukocyte Esterase (NEGATIVE) Urine RBC (0-5/HPF) Urine WBC (0-5/HPF) Ur Squamous Epith Cells (0-5/HPF) Ur Transition Epith Cell Ur Renal Epithelial Cell Calcium Oxalate Crystal Uric Acid Crystals Triple Phos Crystals Other Crystals Amorphous Sediment Urine Bacteria (None) Hyaline Casts Granular Casts RBC Casts WBC Casts Other Casts Urine Mucus Urine Trichomonas Urine Yeast Urine Sperm Ur Culture Indicated? Micro UA Comment Acetaminophen < 10 (10-30) ug/mL SARS-CoV-2 (PCR) (Negative) 12/08/22 12/08/22 12/08/22 Range/Units 13:24 13:40 13:40 WBC (4.5-11.0) X10^3/uL RBC (4.0-5.2) X10^6/uL Hgb (12.0-16.0) g/dL Hct (36-46) % MCV (80-100) fL MCH (26-34) PG MCHC (30-36) % RDW (11.6-14.8) % Plt Count (150-400) X10^3/uL Neut % (Auto) (50-75) % Lymph % (Auto) (25-40) % Cooke % (Auto) (3-14) % Eos % (Auto) (2-4) % Baso % (Auto) (0-2) % Neut # (Auto) (5623-8004) /uL Lymph # (Auto) (6162-9440) /uL Cooke # (Auto) (0-900) /uL Eos # (Auto) (0-450) /uL Baso # (Auto) (0-100) /uL PT (10.1-12.7) SECONDS INR (0.9-1.3) Sodium (137-145) mmol/L Potassium (3.4-5.1) mmol/L Chloride (98-107) mmol/L Carbon Dioxide (22-32) mmol/L BUN (7-17) mg/dL Creatinine (0.52-1.04) mg/dL Estimated GFR (>60) mL/min BUN/Creatinine Ratio (6-22) Glucose (80-110) mg/dL Calcium (8.4-10.2) mg/dL Total Bilirubin (0.2-1.3) mg/dL AST (14-36) IU/L ALT (<35) IU/L Alkaline Phosphatase (38-126) U/L Ammonia < 9 L (9-30) umol/L Total Protein (6.3-8.2) g/dL Albumin (3.5-5.0) g/dL Globulin (1.7-4.1) g/dL Albumin/Globulin Ratio (1.0-2.8) Lipase (23-300) U/L Urine Color Yellow Urine Appearance Sl cloudy Urine pH 5.5 (4.5-8.0) Ur Specific Grover 1.010 (1.000-1.035) Urine Protein Negative (Negative) Urine Glucose (UA) Negative (Negative) g/dL Urine Ketones Negative (NEGATIVE) Urine Occult Blood Negative (Negative) Urine Nitrate Negative (Negative) Urine Bilirubin 2+ H (NEGATIVE) Ur Bilirubin Confirm Positive H (Negative) Urine Urobilinogen 0.2 (0.2) E.U./dL Ur Leukocyte Esterase Trace H (NEGATIVE) Urine RBC 0-1/hpf Cancelled (0-5/HPF) Urine WBC 0-1/hpf Cancelled (0-5/HPF) Ur Squamous Epith Cells 1-5 /hpf Cancelled (0-5/HPF) Ur Transition Epith Cell Cancelled Ur Renal Epithelial Cell Cancelled Calcium Oxalate Crystal Cancelled Uric Acid Crystals Cancelled Triple Phos Crystals Cancelled Other Crystals Cancelled Amorphous Sediment Cancelled Urine Bacteria Few (2-10) H Cancelled (None) Hyaline Casts Cancelled Granular Casts Cancelled RBC Casts Cancelled WBC Casts Cancelled Other Casts Cancelled Urine Mucus Cancelled Urine Trichomonas Cancelled Urine Yeast Cancelled Urine Sperm Cancelled Ur Culture Indicated? Specimen cultured Cancelled Micro UA Comment Cancelled Acetaminophen (10-30) ug/mL SARS-CoV-2 (PCR) (Negative) 12/08/22 Range/Units 17:53 WBC (4.5-11.0) X10^3/uL RBC (4.0-5.2) X10^6/uL Hgb (12.0-16.0) g/dL Hct (36-46) % MCV (80-100) fL MCH (26-34) PG MCHC (30-36) % RDW (11.6-14.8) % Plt Count (150-400) X10^3/uL Neut % (Auto) (50-75) % Lymph % (Auto) (25-40) % Cooke % (Auto) (3-14) % Eos % (Auto) (2-4) % Baso % (Auto) (0-2) % Neut # (Auto) (7966-5362) /uL Lymph # (Auto) (5661-7481) /uL Cooke # (Auto) (0-900) /uL Eos # (Auto) (0-450) /uL Baso # (Auto) (0-100) /uL PT (10.1-12.7) SECONDS INR (0.9-1.3) Sodium (137-145) mmol/L Potassium (3.4-5.1) mmol/L Chloride (98-107) mmol/L Carbon Dioxide (22-32) mmol/L BUN (7-17) mg/dL Creatinine (0.52-1.04) mg/dL Estimated GFR (>60) mL/min BUN/Creatinine Ratio (6-22) Glucose (80-110) mg/dL Calcium (8.4-10.2) mg/dL Total Bilirubin (0.2-1.3) mg/dL AST (14-36) IU/L ALT (<35) IU/L Alkaline Phosphatase (38-126) U/L Ammonia (9-30) umol/L Total Protein (6.3-8.2) g/dL Albumin (3.5-5.0) g/dL Globulin (1.7-4.1) g/dL Albumin/Globulin Ratio (1.0-2.8) Lipase (23-300) U/L Urine Color Urine Appearance Urine pH (4.5-8.0) Ur Specific Grover (1.000-1.035) Urine Protein (Negative) Urine Glucose (UA) (Negative) g/dL Urine Ketones (NEGATIVE) Urine Occult Blood (Negative) Urine Nitrate (Negative) Urine Bilirubin (NEGATIVE) Ur Bilirubin Confirm (Negative) Urine Urobilinogen (0.2) E.U./dL Ur Leukocyte Esterase (NEGATIVE) Urine RBC (0-5/HPF) Urine WBC (0-5/HPF) Ur Squamous Epith Cells (0-5/HPF) Ur Transition Epith Cell Ur Renal Epithelial Cell Calcium Oxalate Crystal Uric Acid Crystals Triple Phos Crystals Other Crystals Amorphous Sediment Urine Bacteria (None) Hyaline Casts Granular Casts RBC Casts WBC Casts Other Casts Urine Mucus Urine Trichomonas Urine Yeast Urine Sperm Ur Culture Indicated? Micro UA Comment Acetaminophen (10-30) ug/mL SARS-CoV-2 (PCR) Negative (Negative) Point of Care Testing Glucose POC 120 Urine Dip Bedside Urine Glucose Negative Bedside Urine Bilirubin - Negative Bedside Urine Ketone - Negative Urine Specific Grover 1.01 Bedside Urine Occult Blood - Negative Bedside Urine pH 6.0 Bedside Urine Protein - Negative Bedside Urine Urobilinogen - Negative Bedside Urine Nitrite - Negative Bedside Urine Leukocytes +/- 15 Esterase MDM Narrative Medical decision making narrative: CC: 77-year-old female with painless jaundice Complicating co-morbidities: Age, hypertension Data collected from: Patient Medical records reviewed: Prior notes reviewed in our EMR Differential considered, but not limited to: Biliary obstruction due to pancreatic mass Exam documented above, pertinent findings include: Jaundice, no abdominal pain Lab Test results independently reviewed as above. Pertinent findings: No leukocytosis, elevated LFTs, bilirubin 10 Independently reviewed EKG as above Imaging studies independently reviewed: Ultrasound with increased hepatic echotexture sludge and gallbladder, dilated common bile duct. CT demonstrates 3 cm mass in the pancreatic uncinate process with dilated common bile duct Consultations: Jone Treatments: Re-evaluations: Discussion: 1899 [facility] Patient signed out to Dr. Kim for final disposition <Jian Kim DO - Last Filed: 12/09/22 05:02> Lab Data Labs: Lab Results 12/08/22 12/08/22 12/08/22 Range/Units 13:24 13:24 13:24 WBC 5.5 (4.5-11.0) X10^3/uL RBC 4.11 (4.0-5.2) X10^6/uL Hgb 12.8 (12.0-16.0) g/dL Hct 38.4 (36-46) % MCV 93.5 (80-100) fL MCH 31.0 (26-34) PG MCHC 33.2 (30-36) % RDW 14.9 H (11.6-14.8) % Plt Count 152 (150-400) X10^3/uL Neut % (Auto) 72.8 (50-75) % Lymph % (Auto) 15.6 L (25-40) % Cooke % (Auto) 9.4 (3-14) % Eos % (Auto) 1.9 L (2-4) % Baso % (Auto) 0.3 (0-2) % Neut # (Auto) 4000 (5743-6488) /uL Lymph # (Auto) 900 L (9304-5054) /uL Cooke # (Auto) 500 (0-900) /uL Eos # (Auto) 100 (0-450) /uL Baso # (Auto) 0 (0-100) /uL PT 13.1 H (10.1-12.7) SECONDS INR 1.1 (0.9-1.3) Sodium 137 (137-145) mmol/L Potassium 3.3 L (3.4-5.1) mmol/L Chloride 99 (98-107) mmol/L Carbon Dioxide 27 (22-32) mmol/L BUN 21 H (7-17) mg/dL Creatinine 0.62 (0.52-1.04) mg/dL Estimated GFR > 60 (>60) mL/min BUN/Creatinine Ratio 33.9 H (6-22) Glucose 158 H (80-110) mg/dL Calcium 9.5 (8.4-10.2) mg/dL Total Bilirubin 10.6 H (0.2-1.3) mg/dL AST 209 H (14-36) IU/L ALT 453 H (<35) IU/L Alkaline Phosphatase 210 H (38-126) U/L Ammonia (9-30) umol/L Total Protein 7.5 (6.3-8.2) g/dL Albumin 3.8 (3.5-5.0) g/dL Globulin 3.7 (1.7-4.1) g/dL Albumin/Globulin Ratio 1.0 (1.0-2.8) Lipase 247 (23-300) U/L Urine Color Urine Appearance Urine pH (4.5-8.0) Ur Specific Grover (1.000-1.035) Urine Protein (Negative) Urine Glucose (UA) (Negative) g/dL Urine Ketones (NEGATIVE) Urine Occult Blood (Negative) Urine Nitrate (Negative) Urine Bilirubin (NEGATIVE) Ur Bilirubin Confirm (Negative) Urine Urobilinogen (0.2) E.U./dL Ur Leukocyte Esterase (NEGATIVE) Urine RBC (0-5/HPF) Urine WBC (0-5/HPF) Ur Squamous Epith Cells (0-5/HPF) Ur Transition Epith Cell Ur Renal Epithelial Cell Calcium Oxalate Crystal Uric Acid Crystals Triple Phos Crystals Other Crystals Amorphous Sediment Urine Bacteria (None) Hyaline Casts Granular Casts RBC Casts WBC Casts Other Casts Urine Mucus Urine Trichomonas Urine Yeast Urine Sperm Ur Culture Indicated? Micro UA Comment Acetaminophen < 10 (10-30) ug/mL SARS-CoV-2 (PCR) (Negative) 12/08/22 12/08/22 12/08/22 Range/Units 13:24 13:40 13:40 WBC (4.5-11.0) X10^3/uL RBC (4.0-5.2) X10^6/uL Hgb (12.0-16.0) g/dL Hct (36-46) % MCV (80-100) fL MCH (26-34) PG MCHC (30-36) % RDW (11.6-14.8) % Plt Count (150-400) X10^3/uL Neut % (Auto) (50-75) % Lymph % (Auto) (25-40) % Cooke % (Auto) (3-14) % Eos % (Auto) (2-4) % Baso % (Auto) (0-2) % Neut # (Auto) (2761-9690) /uL Lymph # (Auto) (1744-3676) /uL Cooke # (Auto) (0-900) /uL Eos # (Auto) (0-450) /uL Baso # (Auto) (0-100) /uL PT (10.1-12.7) SECONDS INR (0.9-1.3) Sodium (137-145) mmol/L Potassium (3.4-5.1) mmol/L Chloride (98-107) mmol/L Carbon Dioxide (22-32) mmol/L BUN (7-17) mg/dL Creatinine (0.52-1.04) mg/dL Estimated GFR (>60) mL/min BUN/Creatinine Ratio (6-22) Glucose (80-110) mg/dL Calcium (8.4-10.2) mg/dL Total Bilirubin (0.2-1.3) mg/dL AST (14-36) IU/L ALT (<35) IU/L Alkaline Phosphatase (38-126) U/L Ammonia < 9 L (9-30) umol/L Total Protein (6.3-8.2) g/dL Albumin (3.5-5.0) g/dL Globulin (1.7-4.1) g/dL Albumin/Globulin Ratio (1.0-2.8) Lipase (23-300) U/L Urine Color Yellow Urine Appearance Sl cloudy Urine pH 5.5 (4.5-8.0) Ur Specific Grover 1.010 (1.000-1.035) Urine Protein Negative (Negative) Urine Glucose (UA) Negative (Negative) g/dL Urine Ketones Negative (NEGATIVE) Urine Occult Blood Negative (Negative) Urine Nitrate Negative (Negative) Urine Bilirubin 2+ H (NEGATIVE) Ur Bilirubin Confirm Positive H (Negative) Urine Urobilinogen 0.2 (0.2) E.U./dL Ur Leukocyte Esterase Trace H (NEGATIVE) Urine RBC 0-1/hpf Cancelled (0-5/HPF) Urine WBC 0-1/hpf Cancelled (0-5/HPF) Ur Squamous Epith Cells 1-5 /hpf Cancelled (0-5/HPF) Ur Transition Epith Cell Cancelled Ur Renal Epithelial Cell Cancelled Calcium Oxalate Crystal Cancelled Uric Acid Crystals Cancelled Triple Phos Crystals Cancelled Other Crystals Cancelled Amorphous Sediment Cancelled Urine Bacteria Few (2-10) H Cancelled (None) Hyaline Casts Cancelled Granular Casts Cancelled RBC Casts Cancelled WBC Casts Cancelled Other Casts Cancelled Urine Mucus Cancelled Urine Trichomonas Cancelled Urine Yeast Cancelled Urine Sperm Cancelled Ur Culture Indicated? Specimen cultured Cancelled Micro UA Comment Cancelled Acetaminophen (10-30) ug/mL SARS-CoV-2 (PCR) (Negative) 12/08/22 Range/Units 17:53 WBC (4.5-11.0) X10^3/uL RBC (4.0-5.2) X10^6/uL Hgb (12.0-16.0) g/dL Hct (36-46) % MCV (80-100) fL MCH (26-34) PG MCHC (30-36) % RDW (11.6-14.8) % Plt Count (150-400) X10^3/uL Neut % (Auto) (50-75) % Lymph % (Auto) (25-40) % Cooke % (Auto) (3-14) % Eos % (Auto) (2-4) % Baso % (Auto) (0-2) % Neut # (Auto) (4691-8361) /uL Lymph # (Auto) (4517-3045) /uL Cooke # (Auto) (0-900) /uL Eos # (Auto) (0-450) /uL Baso # (Auto) (0-100) /uL PT (10.1-12.7) SECONDS INR (0.9-1.3) Sodium (137-145) mmol/L Potassium (3.4-5.1) mmol/L Chloride (98-107) mmol/L Carbon Dioxide (22-32) mmol/L BUN (7-17) mg/dL Creatinine (0.52-1.04) mg/dL Estimated GFR (>60) mL/min BUN/Creatinine Ratio (6-22) Glucose (80-110) mg/dL Calcium (8.4-10.2) mg/dL Total Bilirubin (0.2-1.3) mg/dL AST (14-36) IU/L ALT (<35) IU/L Alkaline Phosphatase (38-126) U/L Ammonia (9-30) umol/L Total Protein (6.3-8.2) g/dL Albumin (3.5-5.0) g/dL Globulin (1.7-4.1) g/dL Albumin/Globulin Ratio (1.0-2.8) Lipase (23-300) U/L Urine Color Urine Appearance Urine pH (4.5-8.0) Ur Specific Grover (1.000-1.035) Urine Protein (Negative) Urine Glucose (UA) (Negative) g/dL Urine Ketones (NEGATIVE) Urine Occult Blood (Negative) Urine Nitrate (Negative) Urine Bilirubin (NEGATIVE) Ur Bilirubin Confirm (Negative) Urine Urobilinogen (0.2) E.U./dL Ur Leukocyte Esterase (NEGATIVE) Urine RBC (0-5/HPF) Urine WBC (0-5/HPF) Ur Squamous Epith Cells (0-5/HPF) Ur Transition Epith Cell Ur Renal Epithelial Cell Calcium Oxalate Crystal Uric Acid Crystals Triple Phos Crystals Other Crystals Amorphous Sediment Urine Bacteria (None) Hyaline Casts Granular Casts RBC Casts WBC Casts Other Casts Urine Mucus Urine Trichomonas Urine Yeast Urine Sperm Ur Culture Indicated? Micro UA Comment Acetaminophen (10-30) ug/mL SARS-CoV-2 (PCR) Negative (Negative) Point of Care Testing Glucose POC 120 Urine Dip Bedside Urine Glucose Negative Bedside Urine Bilirubin - Negative Bedside Urine Ketone - Negative Urine Specific Grover 1.01 Bedside Urine Occult Blood - Negative Bedside Urine pH 6.0 Bedside Urine Protein - Negative Bedside Urine Urobilinogen - Negative Bedside Urine Nitrite - Negative Bedside Urine Leukocytes +/- 15 Esterase Imaging Data US - abdomen: Radiologist's Impression: PROCEDURE: US ABDOMEN LIMITED ? INDICATIONS:? PAINLESS JAUNDICE ? TECHNIQUE:? Real-time focused scanning was performed of the abdomen, with image documentation.? ? COMPARISON:? [facility], US, ABDOMEN COMPLETE, 02/24/2016, 9:31. ? FINDINGS:? Liver is mildly enlarged measuring 20 cm in length.? Liver is hyperechoic, likely secondary to hepatic fatty infiltration. ? There is sludge within the bladder. No gallbladder wall thickening, pericholecystic fluid or sonographic Thomson's sign. ? Common bile duct is dilated measuring up to 14.1 mm. ? Visualized pancreas is unremarkable. ? IMPRESSION:? ? 1.? Diffusely increased hepatic echotexture. This finding is most likely secondary to hepatic fatty infiltration although other hepatocellular disease may have a similar appearance. Recommend clinical correlation. 2. Sludge in gallbladder. 3. Dilated common bile duct.? Cannot exclude distal common bile duct obstruction.? Recommend MRCP for further evaluation. ? MRCP: Radiologist's Impression: PROCEDURE:? MR ABDOMEN WO/W CON ? INDICATIONS:? painless jaundice ? TECHNIQUE:? Coronal HASTE, axial 2D FLASH in- and [id number]; axial breath-hold T2 FSE.? Dynamic axial VIBE during the administration of contrast; post-contrast coronal VIBE or 2D FLASH with fat saturation from the hepatic dome to the iliac crests.? Optional diffusion weighted imaging and ADC may be performed.? ? COMPARISON:? [facility], CT, CT CHEST ABD PEL W CON, 12/08/2022, 15:35. ? FINDINGS:? Image quality:? There is mild motion degradation. ? Lower chest:? Lungs are not well evaluated on MRI.? There is no pleural effusion at the bases. ? Solid organs:? No focal suspicious liver lesion.? There is intrahepatic biliary dilation. ? Gallbladder is distended, with numerous stones.? The CBD is dilated up to 1.4 cm. There is mild pancreatic parenchymal atrophy and prominent pancreatic duct.? At the uncinate process, there is a mass measuring 3.4 x 3.4 cm (12/30). This mass has 180? of contact with the portal confluence.? It also has 180? of contact with the SMA.? The celiac axis is clear.? See series 22, image 43 Spleen is unremarkable.? No adrenal nodules.? No hydronephrosis.? There are small parapelvic cysts. ? Vessels and lymph nodes:? No abdominal aortic aneurysm.? There are prominent maddi hepatis and peripancreatic lymph nodes, which are indeterminate in the setting of probable malignancy.? For example portal caval node on measures 8 mm. ? Bowel and peritoneum:? No evidence of bowel obstruction or pathologic ascites. ? Body wall:? Unremarkable ? Bones:? Degenerative changes.? Leftward spinal curvature.? No acute or suspicious osseous abnormality. ? ? ? IMPRESSION:? Uncinate process pancreas mass with 180? of contact with the SMA and portal confluence and biliary obstruction, compatible with adenocarcinoma.? GI and oncologic consultation is recommended. ? Distended gallbladder and cholelithiasis.? Correlate for sonographic Thomson sign on ultrasound. CT chest/abd/pelvis: Radiologist's Impression: PROCEDURE:? CT CHEST ABD PEL W CON ? INDICATIONS:? painless jaundice, weight loss ? TECHNIQUE:? After the administration of intravenous contrast, 5 mm thick sections acquired from the lung apices to the symphysis.? 5 mm coronal and sagittal reformats were performed, with additional 7 mm MIP reformats through the lungs.? For radiation dose reduction, the following was used:? automated exposure control, adjustment of mA and/or kV according to patient size.? ? COMPARISON:? None. ? FINDINGS:? Image quality:? Excellent.? ? CHEST:? Lungs and pleura:? No acute airspace opacities.? Mild anterior fibrotic changes possibly related to radiation.? No suspicious pulmonary nodules.? No pleural effusions or pneumothorax.? Central and peripheral airways appear patent and normal in caliber.? ? Mediastinum:? Heart size is normal.? No pericardial effusion.? No mediastinal or hilar adenopathy by size criteria.? Thoracic aorta and central pulmonary arteries are normal in size.? Esophagus is normal in caliber.? No hiatal hernia.? ? Chest wall:? No axillary or supraclavicular adenopathy by size criteria.? Thyroid gland unremarkable as visualized.? Left breast clips.? Right axillary node clips..? ? ? ABDOMEN:? Solid organs:? Liver is normal in size and enhancement, with diffuse biliary ductal dilatation.? Gallbladder is distended with either gravel or tiny stones.? No gallbladder wall thickening. .? Biliary system is non dilated.? There is a malignant mass in the region of the uncinate process of the pancreas measuring approximately 3.2 x 3.2 cm.? It may potentially be pancreatic in origin or may represent metastatic adenopathy.? It is associated with obstruction of the distal common duct and dilatation of the biliary tree. ?The common duct measures approximately 15 mm in diameter.? There is diffuse intrahepatic biliary ductal dilatation.? Spleen is normal in size and enhancement.? No adrenal nodules.? Kidneys demonstrate normal size and enhancement, without hydronephrosis.? ? Peritoneum and bowel:? Bowel loops demonstrate normal wall thickness and caliber.? No free fluid or air.? At least moderate sigmoid diverticulosis without evidence of diverticulitis. ? Nodes and vessels:? No retroperitoneal or mesenteric adenopathy by size criteria.? There are mildly prominent peripancreatic and periportal lymph nodes, of uncertain etiology.? Aorta and inferior vena cava are normal in size.? ? Miscellaneous:? No ventral hernias.? ? ? PELVIS:? Genitourinary:? Bladder wall thickness is normal.? ? Miscellaneous:? No inguinal hernias or adenopathy.? 4.8 cm densely calcified uterine fibroid.? ? Bones:? No suspicious bony lesions.? Old L2 compression fracture. ? IMPRESSION:? ? 1. There is a malignant mass centered in the region of the uncinate process of the pancreas.? Consider pancreatic adenocarcinoma versus is a metastatic lymph node.? It results in biliary obstruction. ? 2. Mildly prominent peripancreatic and periportal lymph nodes, of uncertain etiology.? No other evidence of metastatic disease. MDM Narrative Medical decision making narrative: CC: 77-year-old female with painless jaundice Complicating co-morbidities: Age, hypertension Data collected from: Patient Medical records reviewed: Prior notes reviewed in our EMR Differential considered, but not limited to: Biliary obstruction due to pancreatic mass Exam documented above, pertinent findings include: Jaundice, no abdominal pain Lab Test results independently reviewed as above. Pertinent findings: No leukocytosis, elevated LFTs, bilirubin 10 Independently reviewed EKG as above Imaging studies independently reviewed: Ultrasound with increased hepatic echotexture sludge and gallbladder, dilated common bile duct. CT demonstrates 3 cm mass in the pancreatic uncinate process with dilated common bile duct Consultations: Jone Treatments: Re-evaluations: Discussion: 1899 -patient currently on wait list in [facility] as well as [facility]. Patient signed out to Dr. Kim for final disposition Dr kim: Received turned over. Reviewed patient's history and physical and workup up to this point. Patient has been stable. Vital signs are unremarkable. Does have a pancreatic head mass and painless jaundice. Discussed the case with Dr. Gutierrez hospitalist at [facility] who accepts patient for transport. Patient is stable for transport. Discharge Plan Departure Patient Disposition: [facility] Clinical Impression: Mass of pancreas, Hyperbilirubinemia, Jaundice Prescriptions: No Action CMP Estriol Vaginal Cream 0.01% See Rx Instructions .ROUTE .COMPLEX Qty: 30 11RF Rx Instructions: Apply 0.5gm to vagina bedtime 2x weekly[facility] oxybutynin chloride 5 mg tablet See Rx Instructions .ROUTE .COMPLEX Qty: 90 3RF Dose Instruction: TAKE 1/2 TABLET BY MOUTH DAILY. Rx Instructions: TAKE 1/2 TABLET BY MOUTH twice a day clonidine HCl 0.1 mg tablet 0.1 mg PO TID amlodipine 5 mg tablet 5 mg PO QPM metformin 500 mg tablet 500 mg PO DAILY hydrochlorothiazide 25 mg Tablet 25 mg PO DAILY losartan 100 mg Tablet 100 mg PO DAILY tamoxifen 20 mg Tablet 20 mg PO DAILY aspirin 81 mg Tablet,Delayed Release (Dr/Ec) 81 mg PO DAILY acetaminophen 500 mg Tablet 500 mg PO BID PRN (Reason: Pain) Referrals: Travis Narvaez MD [Primary Care Provider] - ED Sign-out <Lukas Brandt DO - Last Filed: 12/10/22 18:17> Cosign ED Attending Cosfidelature Attestation: I was immediately available in the department for consultation. This documentation has been reviewed and I agree with assessment and plan. Supervised by Lukas Brandt DO
--- NOTE | 2022-12-08 15:22 | DI.MRI.S_ITS ---
PROCEDURE: MR ABDOMEN WO/W CON INDICATIONS: painless jaundice TECHNIQUE: Coronal HASTE, axial 2D FLASH in- and [id number]; axial breath-hold T2 FSE. Dynamic axial VIBE during the administration of contrast; post-contrast coronal VIBE or 2D FLASH with fat saturation from the hepatic dome to the iliac crests. Optional diffusion weighted imaging and ADC may be performed. COMPARISON: [facility], CT, CT CHEST ABD PEL W CON, 12/08/2022, 15:35. FINDINGS: Image quality: There is mild motion degradation. Lower chest: Lungs are not well evaluated on MRI. There is no pleural effusion at the bases. Solid organs: No focal suspicious liver lesion. There is intrahepatic biliary dilation. Gallbladder is distended, with numerous stones. The CBD is dilated up to 1.4 cm. There is mild pancreatic parenchymal atrophy and prominent pancreatic duct. At the uncinate process, there is a mass measuring 3.4 x 3.4 cm (12/30). This mass has 180? of contact with the portal confluence. It also has 180? of contact with the SMA. The celiac axis is clear. See series 22, image 43 Spleen is unremarkable. No adrenal nodules. No hydronephrosis. There are small parapelvic cysts. Vessels and lymph nodes: No abdominal aortic aneurysm. There are prominent maddi hepatis and peripancreatic lymph nodes, which are indeterminate in the setting of probable malignancy. For example portal caval node on measures 8 mm. Bowel and peritoneum: No evidence of bowel obstruction or pathologic ascites. Body wall: Unremarkable Bones: Degenerative changes. Leftward spinal curvature. No acute or suspicious osseous abnormality. IMPRESSION: Uncinate process pancreas mass with 180? of contact with the SMA and portal confluence and biliary obstruction, compatible with adenocarcinoma. GI and oncologic consultation is recommended. Distended gallbladder and cholelithiasis. Correlate for sonographic Thomson sign on ultrasound. Dictated by: Nathaniel Vega M.D. on 12/08/2022 at 17:01 Approved by: Nathaniel Vega M.D. on 12/08/2022 at 17:08
--- NOTE | 2022-12-08 15:23 | DI.CT.S_ITS ---
PROCEDURE: CT CHEST ABD PEL W CON INDICATIONS: painless jaundice, weight loss TECHNIQUE: After the administration of intravenous contrast, 5 mm thick sections acquired from the lung apices to the symphysis. 5 mm coronal and sagittal reformats were performed, with additional 7 mm MIP reformats through the lungs. For radiation dose reduction, the following was used: automated exposure control, adjustment of mA and/or kV according to patient size. COMPARISON: None. FINDINGS: Image quality: Excellent. CHEST: Lungs and pleura: No acute airspace opacities. Mild anterior fibrotic changes possibly related to radiation. No suspicious pulmonary nodules. No pleural effusions or pneumothorax. Central and peripheral airways appear patent and normal in caliber. Mediastinum: Heart size is normal. No pericardial effusion. No mediastinal or hilar adenopathy by size criteria. Thoracic aorta and central pulmonary arteries are normal in size. Esophagus is normal in caliber. No hiatal hernia. Chest wall: No axillary or supraclavicular adenopathy by size criteria. Thyroid gland unremarkable as visualized. Left breast clips. Right axillary node clips.. ABDOMEN: Solid organs: Liver is normal in size and enhancement, with diffuse biliary ductal dilatation. Gallbladder is distended with either gravel or tiny stones. No gallbladder wall thickening. . Biliary system is non dilated. There is a malignant mass in the region of the uncinate process of the pancreas measuring approximately 3.2 x 3.2 cm. It may potentially be pancreatic in origin or may represent metastatic adenopathy. It is associated with obstruction of the distal common duct and dilatation of the biliary tree. The common duct measures approximately 15 mm in diameter. There is diffuse intrahepatic biliary ductal dilatation. Spleen is normal in size and enhancement. No adrenal nodules. Kidneys demonstrate normal size and enhancement, without hydronephrosis. Peritoneum and bowel: Bowel loops demonstrate normal wall thickness and caliber. No free fluid or air. At least moderate sigmoid diverticulosis without evidence of diverticulitis. Nodes and vessels: No retroperitoneal or mesenteric adenopathy by size criteria. There are mildly prominent peripancreatic and periportal lymph nodes, of uncertain etiology. Aorta and inferior vena cava are normal in size. Miscellaneous: No ventral hernias. PELVIS: Genitourinary: Bladder wall thickness is normal. Miscellaneous: No inguinal hernias or adenopathy. 4.8 cm densely calcified uterine fibroid. Bones: No suspicious bony lesions. Old L2 compression fracture. IMPRESSION: 1. There is a malignant mass centered in the region of the uncinate process of the pancreas. Consider pancreatic adenocarcinoma versus is a metastatic lymph node. It results in biliary obstruction. 2. Mildly prominent peripancreatic and periportal lymph nodes, of uncertain etiology. No other evidence of metastatic disease. Dictated by: Bill Garrett M.D. on 12/08/2022 at 15:51 Approved by: Bill Garrett M.D. on 12/08/2022 at 16:08
[2022-12-08] MEDS: LORazepam 2 MG/ML INJ 0.5 MG IV (15:51)
[2022-12-08 18:18] LABS: COVID19 -Nasal RAPID Negative (Negative)
--- NOTE | 2022-12-08 18:59 | PC.NURSE ---
Patient is on the waitlist at [facility], [facility], /, and [facility]. [facility] refused due to capacity, [facility] had no ERCP GI providers available.
[2022-12-09 01:12] VITALS: BP 132/63; PULSE 72; RESP 20; TEMP 36.9; O2SAT 96
--- NOTE | 2022-12-09 01:41 | PC.NURSE ---
12/09/2022 0120 Pt is sleeping and easily arousable to voice. Pt is A&Ox4, respiration unlabored and skin is pink, warm and dry. Pt denies any pain at this time and is in no need of assistance. Pt and pt's spouse has been updated by this RN on pt plan of care and pt's spouse plans to go home at this time.
[2022-12-09 05:00] VITALS: BP 140/64; PULSE 76; RESP 20; O2SAT 97
[2022-12-09 07:48] VITALS: BP 151/78; PULSE 102; RESP 16; O2SAT 98
== END 2022-12-09 07:51 | disposition short-term general hospital (02) ==
PROVIDERS: Emergency Medicine; Emergency Provider Emergency Medicine; Family Provider Internal Medicine; PCP Internal Medicine
DX: K86.89 Other specified diseases of pancreas (principal); E80.6 Other disorders of bilirubin metabolism; R17 Unspecified jaundice; Z79.899 Other long term (current) drug therapy; Z20.822 Contact with and (suspected) exposure to COVID-19
CPT/HCPCS: 36415; 71260; 74177; 74183; 76705; 80053; 80329; 81001; 81003; 82140; 82962; 83690; 85025; 85610; 87086; 87635; 96374; 99285; C9803; G0480; J2060; Q9967

== ENCOUNTER 2024-05-18 16:34 | Emergency (ER) | payer MEDICARE, SELFPAY ==
[2020-09-24 09:35] VITALS: BMI 42.3
[2024-05-18 16:36] VITALS: BP 137/68; PULSE 82; RESP 18; TEMP 36.6; O2SAT 100; BMI 24.0
--- NOTE | 2024-05-18 16:50 | ED_ITS ---
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 Patient presents with request for report to be flushed and have heparin infused. Patient was doing her usual chemotherapy and pump at home supposed to be flushing heparin locked after treatment needle was removed before the flush for heparin. They present with request for flush and heparin. Patient has no other complaints. No fevers chills, she states she is tired from her chemotherapy she has been on it for about a year and a half. Denies any other issues no redness swelling or pain in her report she states it has otherwise been working well with no difficulties. Related Data Home Medications Medication Instructions Recorded Confirmed amlodipine 5 mg tablet 5 mg PO QPM 11/19/18 01/11/24 aspirin 81 mg tablet,delayed 81 mg PO DAILY 09/26/19 01/11/24 release losartan 100 mg tablet 100 mg PO DAILY 09/26/19 01/11/24 metformin 500 mg tablet 500 mg PO DAILY 12/08/22 01/11/24 [id number] 2 cap PO BID 12/27/23 01/11/24 36,000-114,000-180,000 unit capsule,delay rel (Creon) pantoprazole 40 mg tablet,delayed 40 mg PO DAILY 12/27/23 01/11/24 release Allergies Allergy/AdvReac Type Severity Reaction Status Date / Time doxycycline [DOXYCYCLINE] Allergy Severe RASH Verified 01/11/24 15:01 fluoxetine [FLUOXETINE] AdvReac Severe Tachycardia, Verified 01/11/24 15:01 nervousness lisinopril [LISINOPRIL] AdvReac Severe COUGH Verified 01/11/24 15:01 Review of Systems Review of Systems ROS Unobtainable: All systems reviewed & are unremarkable except as noted in HPI and below Patient History Medical History Cellulitis (~2010) Anxiety Thin skin Rosacea Arthritis Osteoarthritis Pre-diabetes Breast cancer, left (~2017) Venous insufficiency Pedal edema HTN (hypertension) Seasonal allergies Surgical History History of arthroplasty of right knee (10/10/19) History of hammer toe correction History of partial mastectomy of left breast (~2016) Hx of appendectomy Hx of bilateral cataract extraction Family History Sister Type II diabetes mellitus Essential hypertension Social History household members: spouse Smoking Status: Former smoker alcohol intake: never Smoking Status: Former smoker alcohol intake frequency: holidays/special occasions only Substance Use Type: does not use Exam Narrative Exam Narrative: GENERAL: Alert and oriented x three, female in no acute distress HEENT: Head normocephalic, atraumatic, EOMI, pupils reactive, face symmetric, moist mucous membranes NECK: Supple, full range of motion CARDIOVASCULAR: Regular rate and rhythm without murmurs, rubs or gallops. Patient has port on the right upper chest, no warmth erythema or skin changes. Areas nontender. RESPIRATORY: Breath sounds equal bilaterally, no wheezes rales or rhonchi. ABDOMEN: Soft, nontender. Normoactive bowel sounds all 4 quadrants. No guarding or rebound, rigidity, no mass EXTREMITIES: Normal range of motion, no clubbing or edema. Neurovascularly intact NEUROLOGICAL: Cranial nerves II through XII grossly intact. Moving all extremities SKIN: Warm, dry, no petechiae, no rashes or lesions. Initial Vital Signs Initial Vital Signs: Vital Signs Temperature 97.8 F 05/18/24 16:36 Pulse Rate 82 05/18/24 16:36 Respiratory Rate 18 05/18/24 16:36 Blood Pressure 137/68 05/18/24 16:36 Pulse Oximetry 100 05/18/24 16:36 Oxygen Delivery Method Room Air 05/18/24 16:36 Course Orders Ordered: Discontinued Medications Heparin Sodium (Porcine) (Heparin 500 Unit/5 Ml Port Flush) 500 unit IV PRN PRN PRN Reason: Flush Heparin Sodium (Porcine) (Heparin 500 Unit/5 Ml Port Flush) 500 unit IV NOW ONE Stop: 05/18/24 16:57 Last Admin: 05/18/24 17:15 Dose: 500 unit Documented By: MAHSA Vital Signs Vital signs: Vital Signs - 8 hr 05/18/24 16:36 Temperature 97.8 F Pulse Rate 82 Respiratory Rate 18 Blood Pressure 137/68 Pulse Oximetry 100 Oxygen Delivery Method Room Air MDM - Recheck/Abnormal Lab/Rx MDM Narrative Medical decision making narrative: 78-year-old female presents with request for her port to be flushed and hep- locked patient had her usual chemo treatment but needle was removed before this occurred by accident today. She has no other complaints or issues but was concerned to prevent occlusion of her port. Patient's site is clean dry intact without any signs of infection. Discharge Plan Departure Patient Disposition: Home Clinical Impression: Port-A-Cath in place Activity Restrictions/Additional Instructions: Please return if you have any signs of infection or issues with your port. Prescriptions: No Action amlodipine 5 mg tablet 5 mg PO QPM pantoprazole 40 mg tablet,delayed release (DR/EC) 40 mg PO DAILY Creon 36,000-114,000- 180,000 unit capsule,delayed release(DR/EC) 2 cap PO BID Rx Instructions: administer with meals and/or snacks metformin 500 mg tablet 500 mg PO DAILY losartan 100 mg Tablet 100 mg PO DAILY aspirin 81 mg Tablet,Delayed Release (Dr/Ec) 81 mg PO DAILY Referrals: Travis Narvaez MD [Primary Care Provider] - Stand Alone Forms: Patient Portal/API
== END 2024-05-18 17:18 | disposition home or self-care (01) ==
PROVIDERS: Emergency Provider Emergency Medicine; Family Provider Internal Medicine; PCP Internal Medicine
DX: Z45.2 Encounter for adjustment and management of vascular access device (principal)
CPT/HCPCS: 96374; 99283; J1642

== ENCOUNTER 2024-09-18 16:12 | Emergency (ER) | payer MEDICARE, SELFPAY ==
[2020-09-24 09:35] VITALS: BMI 42.3
[2024-09-18 16:17] VITALS: BP 133/77; PULSE 60; RESP 20; TEMP 36.6; O2SAT 100; BMI 23.0
--- NOTE | 2024-09-18 16:42 | ED.RECABL ---
HPI - Recheck/Abnormal Lab/Rx <Ely Modi PA-C - Last Filed: 09/18/24 18:20> General Chief Complaint: Recheck/Abnormal Lab/Rx Stated Complaint: needs infusion pin flushed Time Seen by Provider: 09/18/24 16:23 Source: patient Mode of arrival: Ambulatory History of Present Illness HPI narrative: 79-year-old woman with history of pancreatic cancer and port presents with concern for needing port flushed. forgot to do this when accessing it and it has clogged. Patient and her deny any other complaints or concerns. Related Data Home Medications Medication Instructions Recorded Confirmed amlodipine 5 mg tablet 5 mg PO QPM 11/19/18 01/11/24 aspirin 81 mg tablet,delayed 81 mg PO DAILY 09/26/19 01/11/24 release losartan 100 mg tablet 100 mg PO DAILY 09/26/19 01/11/24 metformin 500 mg tablet 500 mg PO DAILY 12/08/22 01/11/24 [id number]-[id number]-ulnpbzu 2 cap PO BID 12/27/23 01/11/24 36,000-114,000-180,000 unit capsule,delay rel (Creon) pantoprazole 40 mg tablet,delayed 40 mg PO DAILY 12/27/23 01/11/24 release Allergies Allergy/AdvReac Type Severity Reaction Status Date / Time doxycycline [DOXYCYCLINE] Allergy Severe RASH Verified 09/18/24 16:21 fluoxetine [FLUOXETINE] AdvReac Severe Tachycardia, Verified 09/18/24 16:21 nervousness lisinopril [LISINOPRIL] AdvReac Severe COUGH Verified 09/18/24 16:21 Review of Systems <Ely Modi PA-C - Last Filed: 09/18/24 18:20> Review of Systems Narrative: See HPI Patient History <Ely Modi PA-C - Last Filed: 09/18/24 18:20> Medical History Cellulitis (~2010) Anxiety Thin skin Rosacea Arthritis Osteoarthritis Pre-diabetes Breast cancer, left (~2017) Venous insufficiency Pedal edema HTN (hypertension) Seasonal allergies Surgical History History of arthroplasty of right knee (10/10/19) History of hammer toe correction History of partial mastectomy of left breast (~2017) Hx of appendectomy Hx of bilateral cataract extraction Family History Sister Type II diabetes mellitus Essential hypertension Social History household members: spouse Smoking Status: Former smoker alcohol intake: never Smoking Status: Former smoker alcohol intake frequency: holidays/special occasions only Exam <Ely Modi PA-C - Last Filed: 09/18/24 18:20> Narrative Exam Narrative: GENERAL: [79] year old patient appears stated age. Chronically ill-appearing patient, in mild distress. HEAD: Atraumatic. Normocephalic. EYES: Pupils equal round and reactive. Extraocular motions intact. No scleral icterus. No injection or drainage. ENT: Nose without bleeding, purulent drainage. Airway patent. NECK: Trachea midline. CARDIOVASCULAR/CHEST WALL: Regular rate and rhythm. There is a chemo port on the patient's right anterior chest there is very mild bruising adjacent but No erythema swelling or tenderness RESPIRATORY: no increased work of breathing or respiratory distress EXTREMITIES: moving all extremities NEURO: AOx3. SKIN: No rash or erythema of visible areas Initial Vital Signs Initial Vital Signs: Vital Signs Temperature 97.8 F 09/18/24 16:17 Pulse Rate 60 09/18/24 16:17 Respiratory Rate 20 09/18/24 16:17 Blood Pressure 133/77 09/18/24 16:17 Pulse Oximetry 100 09/18/24 16:17 Oxygen Delivery Method Room Air 09/18/24 16:17 <Noemi Yun MD - Last Filed: 09/19/24 07:33> Initial Vital Signs Initial Vital Signs: Vital Signs Temperature 97.8 F 09/18/24 16:17 Pulse Rate 60 09/18/24 16:17 Respiratory Rate 20 09/18/24 16:17 Blood Pressure 133/77 09/18/24 16:17 Pulse Oximetry 100 09/18/24 16:17 Oxygen Delivery Method Room Air 09/18/24 16:17 Course <Ely Modi PA-C - Last Filed: 09/18/24 18:20> Orders Ordered: Discontinued Medications Heparin Sodium (Porcine) (Heparin Flush (Cl/Picc/Mid-Line) 50 Unit/5 Ml Syringe) 50 unit IV NOW ONE Stop: 09/18/24 16:24 Last Admin: 09/18/24 16:55 Dose: 50 unit Documented By: SB Vital Signs Vital signs: Vital Signs - 8 hr 09/18/24 16:17 09/18/24 18:15 Temperature 97.8 F Pulse Rate 60 63 Respiratory Rate 20 18 Blood Pressure 133/77 127/58 L Pulse Oximetry 100 100 Oxygen Delivery Method Room Air Room Air <Noemi Yun MD - Last Filed: 09/19/24 07:33> Orders Ordered: Discontinued Medications Heparin Sodium (Porcine) (Heparin Flush (Cl/Picc/Mid-Line) 50 Unit/5 Ml Syringe) 50 unit IV NOW ONE Stop: 09/18/24 16:24 Last Admin: 09/18/24 16:55 Dose: 50 unit Documented By: SB Vital Signs Vital signs: Vital Signs - 8 hr 09/18/24 16:17 09/18/24 18:15 Temperature 97.8 F Pulse Rate 60 63 Respiratory Rate 20 18 Blood Pressure 133/77 127/58 L Pulse Oximetry 100 100 Oxygen Delivery Method Room Air Room Air MDM - Recheck/Abnormal Lab/Rx <Ely Modi PA-C - Last Filed: 09/18/24 18:20> Differential Diagnosis Differential diagnosis: Likely other ( port access/flush) MDM Narrative Medical decision making narrative: this is a 79-year-old woman with a history of pancreatic cancer presenting to the emergency department with her with concern for needing her chemo port flushed as neglected to do this when he last accessed it. There is no evidence of infection and port appears to be in good condition. It was accessed by RN and flushed without difficulty with heparin 50cc Flush. Patient has no other complaints or concerns. Labs and imaging are not obtained. Return precautions provided, follow-up plan discussed, all questions answered. Discharge Plan Departure Patient Disposition: Home Clinical Impression: Encounter for care related to vascular access port Activity Restrictions/Additional Instructions: *You have been diagnosed with [Care to access your port ] *What to do: *Please continue to take your regular medications as directed. [ ] New medication prescriptions sent to your pharmacy: [ ] [ ] New medication written as a paper prescription [ ] No new medications given *Please follow up with your primary care provider in 2-3 days, call for an appointment. Let them know you were seen in the Emergency Department and that we ask that you be seen in follow up. We will electronically transmit a record of today's note if your PCP is in our system. came into the emergency department today with concern for needing her port flushed and accessed. RN was able to do this successfully and was able to flush your port without difficulty. Please follow up with your primary care/oncologist as scheduled and continue with your regular medications as prescribed. *If you do not have a primary care provider please contact the [facility] Resource line at [phone]. They will ask some questions about your medical history and help get you set up with a doctor in the community. *Return to Emergency Department if you should have any new, worsening or concerning symptoms, such as [fever greater than 101 F, shaking chills, worsening pain, persistent vomiting or other bothersome symptoms] Prescriptions: No Action amlodipine 5 mg tablet 5 mg PO QPM pantoprazole 40 mg tablet,delayed release (DR/EC) 40 mg PO DAILY Creon 36,000-114,000- 180,000 unit capsule,delayed release(DR/EC) 2 cap PO BID Rx Instructions: administer with meals and/or snacks metformin 500 mg tablet 500 mg PO DAILY losartan 100 mg Tablet 100 mg PO DAILY aspirin 81 mg Tablet,Delayed Release (Dr/Ec) 81 mg PO DAILY Referrals: Travis Narvaez MD [Primary Care Provider] - Stand Alone Forms: Patient Portal/API/Survey ED Sign-out <Noemi Yun MD - Last Filed: 09/19/24 07:33> Cosign ED Attending Cosfidelature Attestation: I was immediately available in the department for consultation throughout this patient's visit. Noemi Yun MD
--- NOTE | 2024-09-18 17:29 | PC.NURSE ---
This RN accesses patient port with a 20G hub from port access kit with RN Ellie assistance. This RN is easily able to pull back blood. Flushed port with 20cc of normal saline then 50 units of heparin as per provider direction. Pt port is de-accessed and bandaid placed over port.
[2024-09-18 18:15] VITALS: BP 127/58; PULSE 63; RESP 18; O2SAT 100
== END 2024-09-18 18:16 | disposition home or self-care (01) ==
PROVIDERS: Emergency Provider Student in an Organized Health Care Education/Training Program; Family Provider Internal Medicine; PCP Internal Medicine
DX: T82.898A Other specified complication of vascular prosthetic devices, implants and grafts, initial encounter (principal)
CPT/HCPCS: 99282; J1642

== ENCOUNTER 2025-01-17 13:37 | Emergency (ER) | payer MEDICARE, SELFPAY ==
[2020-09-24 09:35] VITALS: BMI 42.3
[2025-01-17] VITALS (29 sets, daily range): BP systolic 103–147; BP diastolic 51–67; PULSE 71–110; RESP 15–24; TEMP 37.5; O2SAT 96–100; BMI 24.0
--- NOTE | 2025-01-17 13:59 | EKG_ITS ---
[place] [id number] [place] [id number] Test Date: 2025-01-17 Pat Name: Ute Sánchez Department: [facility] Room: Gender: Female [employer] Machine Operator: ARUNA : 1945 Requested By: Order Number: [id number] Reading MD: Gary Flores Measurements Intervals Jemison Rate: 81 P: 147 PA: 170 QRS: -29 QRSD: 88 T: 130 QT: 362 QTc: 420 Interpretive Statements Unusual P axis, possible ectopic atrial rhythm Minimal voltage criteria for LVH, may be normal variant ( R in aVL ) Anterolateral infarct , age undetermined Electronically Signed On 01-17-2025 19:11:37 PDT by Gary Flores
--- NOTE | 2025-01-17 13:59 | DI.RAD.S_ITS ---
PROCEDURE: XR CHEST 1V INDICATIONS: suspected sepsis TECHNIQUE: One view of the chest was acquired. COMPARISON: Outside Film, CT, CT CHEST ABDOMEN PELVIS WITH CONTRAST, 11/23/2023, 11:03. FINDINGS: Surgical changes and devices: Right Port-A-Cath unchanged. Cholecystectomy clips. Lungs and pleura: Lungs are clear. No pleural effusions or pneumothorax. Mediastinum: Mediastinal contours appear normal. Heart size is normal. Bones and chest wall: No suspicious bony lesions. Overlying soft tissues appear unremarkable. IMPRESSION: No acute pulmonary process. Dictated by: Wendy Garcia M.D. on 01/17/2025 at 14:57 Approved by: Wendy Garcia M.D. on 01/17/2025 at 14:57
[2025-01-17] MEDS: SODIUM CHLORIDE 0.9% 1,000 ML 1000 ML IV (14:34)
[2025-01-17 14:40] LABS: Add Manual Diff / Slide Review NO; Basophils Absolute Auto 0 /uL (0-100); Basophils Percent Auto 0.2 % (0-2); Eosinophils Absolute Auto 0 /uL (0-450); Eosinophils Percent Auto 0.4 % (2-4); Hematocrit 32.9 % (36-46); Hemoglobin 10.9 g/dL (12.0-16.0); Lymphocytes Absolute Auto 600 /uL (1100-4500); Lymphocytes Percent Auto 9.4 % (25-40); Mean Corpuscular Hemoglobin 30.1 PG (26-34); Mean Corpuscular Volume 91.2 fL (80-100); Monocytes Absolute Auto 600 /uL (0-900); Monocytes Percent Auto 8.3 % (3-14); Neutrophils Absolute Auto 5600 /uL (1500-7000); Neutrophils Percent Auto 81.7 % (50-75); Platelet Count 237 X10^3/uL (150-400); Red Blood Cell Count 3.61 X10^6/uL (4.0-5.2); White Blood Cell Count 6.9 X10^3/uL (4.5-11.0)
[2025-01-17 14:44] LABS: Prothrombin Time 11.2 SECONDS (9.4-12.5)
[2025-01-17 14:47] LABS: PTT Partial Thromboplastin Tim 37 SECONDS (25.1-36.5)
[2025-01-17 14:48] LABS: Alanine Aminotransferase 58 IU/L (<35); Albumin 3.3 g/dL (3.5-5.0); Albumin Globulin Ratio 1.1 (1.0-2.8); Alkaline Phosphatase 279 U/L (38-126); Aspartate Aminotransferase 68 IU/L (14-36); BUN Creatinine Ratio 31.3 (6-22); Bilirubin Total 0.4 mg/dL (0.2-1.3); Blood Urea Nitrogen 20 mg/dL (7-17); Carbon Dioxide 24 mmol/L (22-32); Chloride 100 mmol/L (98-107); Estimated Glomerular Filt Rate > 60 mL/min (>60); Glucose 116 mg/dL (80-110); HEMOLYSIS < 15 (0-50); Lipase 22 U/L (23-300); Potassium 4.4 mmol/L (3.4-5.1); Sodium 131 mmol/L (137-145); Total Protein 6.3 g/dL (6.3-8.2)
[2025-01-17 14:49] LABS: Lactate (Lactic Acid) 1.2 mmol/L (0.7-2.1)
[2025-01-17 14:53] LABS: Anisocytosis 2+
[2025-01-17 15:05] LABS: Procalcitonin 0.317 ng/mL (<0.5)
[2025-01-17] MEDS: SODIUM CHLORIDE 0.9% 1,000 ML 50 ML IV (15:29)
--- NOTE | 2025-01-17 15:34 | ED.WEAKNESS ---
HPI - Weakness <Sin Keene, DO - Last Filed: 01/17/25 20:06> General Chief complaint: Weakness Stated complaint: Pac Time Seen by Provider: 01/17/25 15:25 Source: patient History of Present Illness HPI Narrative: 79-year-old female stage IV pancreatic cancer status post Whipple procedure 2 years ago has had over 40 chemo treatments presents today with weakness nausea and feeling achy all over with decreased oral intake overall despite being on zofran rx. She recently had 9 L of fluid removed from her abdomen at [facility]. Other than what is stated 14 point review of system is negative Related Data Home Medications Medication Instructions Recorded Confirmed amlodipine 5 mg tablet 5 mg PO QPM 11/19/18 01/11/24 aspirin 81 mg tablet,delayed 81 mg PO DAILY 09/26/19 01/11/24 release losartan 100 mg tablet 100 mg PO DAILY 09/26/19 01/11/24 metformin 500 mg tablet 500 mg PO DAILY 12/08/22 01/11/24 [id number] 2 cap PO BID 12/27/23 01/11/24 36,000-114,000-180,000 unit capsule,delay rel (Creon) pantoprazole 40 mg tablet,delayed 40 mg PO DAILY 12/27/23 01/11/24 release Allergies Allergy/AdvReac Type Severity Reaction Status Date / Time doxycycline [DOXYCYCLINE] Allergy Severe RASH Verified 09/18/24 16:21 fluoxetine [FLUOXETINE] AdvReac Severe Tachycardia, Verified 09/18/24 16:21 nervousness lisinopril [LISINOPRIL] AdvReac Severe COUGH Verified 09/18/24 16:21 Patient History <Sin Keene, DO - Last Filed: 01/17/25 20:06> Medical History Cellulitis (~2010) Anxiety Thin skin Rosacea Arthritis Osteoarthritis Pre-diabetes Breast cancer, left (~2016) Venous insufficiency Pedal edema HTN (hypertension) Seasonal allergies Surgical History History of arthroplasty of right knee (10/10/19) History of hammer toe correction History of partial mastectomy of left breast (~2016) Hx of appendectomy Hx of bilateral cataract extraction Family History Sister Type II diabetes mellitus Essential hypertension Social History household members: spouse Smoking Status: Never smoker alcohol intake: never Smoking Status: Never smoker alcohol intake frequency: holidays/special occasions only Exam <Sin Keene, DO - Last Filed: 01/17/25 20:06> Narrative Exam Narrative: GENERAL: 79 year old patient appears stated age. Ill appearing in mild distress. HEAD: Atraumatic. Normocephalic. EYES: Pupils equal round and reactive. Extraocular motions intact. No scleral icterus. No injection or drainage. ENT: Nose without bleeding, purulent drainage. Throat without erythema, tonsillar hypertrophy or exudate. Airway patent. NECK: Trachea midline. Non tender CARDIOVASCULAR: Regular rate and rhythm without murmurs, gallops, or rubs. RESPIRATORY: Clear to auscultation. Breath sounds equal bilaterally. No wheezes, rales, or rhonchi. GASTROINTESTINAL: Distended, firm, umbilical hernia EXTREMITIES: No edema or joint tenderness. BACK: Nontender without deformity or crepitance. No flank tenderness. NEURO: AOx3. SKIN: No rash or erythema of visible areas Initial Vital Signs Initial Vital Signs: Vital Signs Temperature 99.5 F 01/17/25 13:50 Pulse Rate 110 H 01/17/25 13:50 Respiratory Rate 20 01/17/25 13:50 Blood Pressure 115/66 01/17/25 13:50 Pulse Oximetry 99 01/17/25 13:50 Oxygen Delivery Method Room Air 01/17/25 13:50 <Roselyn Whyte DO - Last Filed: 01/19/25 03:58> Initial Vital Signs Initial Vital Signs: Vital Signs Temperature 99.5 F 01/17/25 13:50 Pulse Rate 110 H 01/17/25 13:50 Respiratory Rate 20 01/17/25 13:50 Blood Pressure 115/66 01/17/25 13:50 Pulse Oximetry 99 01/17/25 13:50 Oxygen Delivery Method Room Air 01/17/25 13:50 Procedures <Roselyn Whyte DO - Last Filed: 01/19/25 03:58> Paracentesis Time Out Performed: Yes Indication: Ascites and possible spontaneous bacterial peritonitis Procedure: therapeutic paracentesis Local Anesthetic: lidocaine 2% Preparation: sterile prep and drape and Blade used to make peter in skin Fluid: bloody (yellow) and sent to lab for analysis Post Procedure Exam: awake, alert Patient Tolerated Procedure: Well and No complications Complications: none Course <Sin Keene, DO - Last Filed: 01/17/25 20:06> Orders Ordered: Discontinued Medications Sodium Chloride (Normal Saline 0.9%) 1,000 mls @ 1,000 mls/hr IV BOLUS ONE Stop: 01/17/25 14:58 Last Infusion: 01/17/25 15:42 Dose: Infused Documented By: Admin: 01/17/25 14:34 Dose: 1,000 mls/hr Documented By: ZUHAIR Sodium Chloride (Normal Saline 0.9%) 1,000 mls @ 50 mls/hr IV CONT MIRTA Last Infusion: 01/18/25 02:25 Dose: Infused Documented By: Admin: 01/17/25 15:29 Dose: 50 mls/hr Documented By: LUIS Ceftriaxone Sodium 2,000 mg/ (Sodium Chloride) 100 mls @ 200 mls/hr IV NOW ONE Stop: 01/17/25 21:00 Last Infusion: 01/17/25 23:13 Dose: Infused Documented By: Admin: 01/17/25 22:19 Dose: 200 mls/hr Documented By: SHAHNAZ Lidocaine HCl (Lidocaine 2% Inj Mdv 20ml) 10 ml INJ INTRA-OP ONE Stop: 01/17/25 19:28 Last Admin: 01/17/25 20:44 Dose: Not Given Documented By: SHAHNAZ Lidocaine HCl (Lidocaine 2% Inj Sdv 5ml) 2 ml INJ NOW ONE Stop: 01/17/25 19:32 Last Admin: 01/17/25 19:35 Dose: 2 ml Documented By: SHAHNAZ Ondansetron HCl (Ondansetron 4 Mg/2 Ml Inj) 4 mg IV NOW PRN PRN Reason: Nausea And Vomiting Ondansetron HCl (Ondansetron 4 Mg Odt) 4 mg SL NOW PRN PRN Reason: Nausea And Vomiting Vital Signs Vital signs: Vital Signs - 8 hr 01/17/25 17:19 01/17/25 17:19 01/17/25 17:30 Pulse Rate 79 78 Respiratory Rate 19 19 Blood Pressure 126/60 Pulse Oximetry 100 99 Oxygen Delivery Method 01/17/25 17:30 01/17/25 18:00 01/17/25 18:00 Pulse Rate 79 Respiratory Rate 21 Blood Pressure 133/62 116/57 L Pulse Oximetry 100 Oxygen Delivery Method 01/17/25 18:30 01/17/25 18:30 01/17/25 19:00 Pulse Rate 80 81 Respiratory Rate 18 24 Blood Pressure 125/58 L Pulse Oximetry 100 100 Oxygen Delivery Method 01/17/25 19:00 01/17/25 19:30 01/17/25 19:30 Pulse Rate 78 Respiratory Rate 24 Blood Pressure 113/54 L 108/55 L Pulse Oximetry 99 Oxygen Delivery Method 01/17/25 19:45 01/17/25 19:45 01/17/25 19:50 Pulse Rate 78 77 Respiratory Rate 15 19 Blood Pressure 110/54 L Pulse Oximetry 99 99 Oxygen Delivery Method 01/17/25 19:50 01/17/25 19:55 01/17/25 20:00 Pulse Rate 77 81 Respiratory Rate 24 19 Blood Pressure 111/56 L 117/51 L 135/61 Pulse Oximetry 99 99 Oxygen Delivery Method 01/17/25 20:02 01/17/25 20:05 01/17/25 20:15 Pulse Rate 81 83 78 Respiratory Rate 20 22 18 Blood Pressure 117/59 L 116/57 L 123/58 L Pulse Oximetry 99 99 100 Oxygen Delivery Method 01/17/25 20:16 01/17/25 20:20 01/17/25 20:25 Pulse Rate 79 77 78 Respiratory Rate 18 16 16 Blood Pressure 113/58 L 122/59 L 116/57 L Pulse Oximetry 96 98 99 Oxygen Delivery Method 01/17/25 20:30 01/17/25 20:35 01/17/25 20:35 Pulse Rate 78 79 Respiratory Rate 17 20 Blood Pressure 111/56 L 113/59 L Pulse Oximetry 99 99 Oxygen Delivery Method Room Air 01/17/25 21:00 01/17/25 21:00 01/17/25 21:30 Pulse Rate 80 Respiratory Rate 20 Blood Pressure 103/56 L 106/53 L Pulse Oximetry 100 Oxygen Delivery Method 01/17/25 21:30 01/17/25 22:33 01/17/25 22:33 Pulse Rate 78 78 Respiratory Rate 20 Blood Pressure 110/56 L Pulse Oximetry 99 98 Oxygen Delivery Method 01/17/25 23:00 01/17/25 23:00 01/17/25 23:30 Pulse Rate 78 79 Respiratory Rate Blood Pressure 115/56 L Pulse Oximetry 98 99 Oxygen Delivery Method Room Air 01/17/25 23:30 01/18/25 00:00 01/18/25 00:00 Pulse Rate 90 Respiratory Rate 12 Blood Pressure 110/57 L 125/62 Pulse Oximetry 99 Oxygen Delivery Method Room Air <Roselyn Whyte DO - Last Filed: 01/19/25 03:58> Orders Ordered: Discontinued Medications Sodium Chloride (Normal Saline 0.9%) 1,000 mls @ 1,000 mls/hr IV BOLUS ONE Stop: 01/17/25 14:58 Last Infusion: 01/17/25 15:42 Dose: Infused Documented By: Admin: 01/17/25 14:34 Dose: 1,000 mls/hr Documented By: ZUHAIR Sodium Chloride (Normal Saline 0.9%) 1,000 mls @ 50 mls/hr IV CONT MIRTA Last Infusion: 01/18/25 02:25 Dose: Infused Documented By: Admin: 01/17/25 15:29 Dose: 50 mls/hr Documented By: LUIS Ceftriaxone Sodium 2,000 mg/ (Sodium Chloride) 100 mls @ 200 mls/hr IV NOW ONE Stop: 01/17/25 21:00 Last Infusion: 01/17/25 23:13 Dose: Infused Documented By: Admin: 01/17/25 22:19 Dose: 200 mls/hr Documented By: SHAHNAZ Lidocaine HCl (Lidocaine 2% Inj Mdv 20ml) 10 ml INJ INTRA-OP ONE Stop: 01/17/25 19:28 Last Admin: 01/17/25 20:44 Dose: Not Given Documented By: SHAHNAZ Lidocaine HCl (Lidocaine 2% Inj Sdv 5ml) 2 ml INJ NOW ONE Stop: 01/17/25 19:32 Last Admin: 01/17/25 19:35 Dose: 2 ml Documented By: SHAHNAZ Ondansetron HCl (Ondansetron 4 Mg/2 Ml Inj) 4 mg IV NOW PRN PRN Reason: Nausea And Vomiting Ondansetron HCl (Ondansetron 4 Mg Odt) 4 mg SL NOW PRN PRN Reason: Nausea And Vomiting Vital Signs Vital signs: Vital Signs - 8 hr 01/17/25 17:19 01/17/25 17:19 01/17/25 17:30 Pulse Rate 79 78 Respiratory Rate 19 19 Blood Pressure 126/60 Pulse Oximetry 100 99 Oxygen Delivery Method 01/17/25 17:30 01/17/25 18:00 01/17/25 18:00 Pulse Rate 79 Respiratory Rate 21 Blood Pressure 133/62 116/57 L Pulse Oximetry 100 Oxygen Delivery Method 01/17/25 18:30 01/17/25 18:30 01/17/25 19:00 Pulse Rate 80 81 Respiratory Rate 18 24 Blood Pressure 125/58 L Pulse Oximetry 100 100 Oxygen Delivery Method 01/17/25 19:00 01/17/25 19:30 01/17/25 19:30 Pulse Rate 78 Respiratory Rate 24 Blood Pressure 113/54 L 108/55 L Pulse Oximetry 99 Oxygen Delivery Method 01/17/25 19:45 01/17/25 19:45 01/17/25 19:50 Pulse Rate 78 77 Respiratory Rate 15 19 Blood Pressure 110/54 L Pulse Oximetry 99 99 Oxygen Delivery Method 01/17/25 19:50 01/17/25 19:55 01/17/25 20:00 Pulse Rate 77 81 Respiratory Rate 24 19 Blood Pressure 111/56 L 117/51 L 135/61 Pulse Oximetry 99 99 Oxygen Delivery Method 01/17/25 20:02 01/17/25 20:05 01/17/25 20:15 Pulse Rate 81 83 78 Respiratory Rate 20 22 18 Blood Pressure 117/59 L 116/57 L 123/58 L Pulse Oximetry 99 99 100 Oxygen Delivery Method 01/17/25 20:16 01/17/25 20:20 01/17/25 20:25 Pulse Rate 79 77 78 Respiratory Rate 18 16 16 Blood Pressure 113/58 L 122/59 L 116/57 L Pulse Oximetry 96 98 99 Oxygen Delivery Method 01/17/25 20:30 01/17/25 20:35 01/17/25 20:35 Pulse Rate 78 79 Respiratory Rate 17 20 Blood Pressure 111/56 L 113/59 L Pulse Oximetry 99 99 Oxygen Delivery Method Room Air 01/17/25 21:00 01/17/25 21:00 01/17/25 21:30 Pulse Rate 80 Respiratory Rate 20 Blood Pressure 103/56 L 106/53 L Pulse Oximetry 100 Oxygen Delivery Method 01/17/25 21:30 01/17/25 22:33 01/17/25 22:33 Pulse Rate 78 78 Respiratory Rate 20 Blood Pressure 110/56 L Pulse Oximetry 99 98 Oxygen Delivery Method 01/17/25 23:00 01/17/25 23:00 01/17/25 23:30 Pulse Rate 78 79 Respiratory Rate Blood Pressure 115/56 L Pulse Oximetry 98 99 Oxygen Delivery Method Room Air 01/17/25 23:30 01/18/25 00:00 01/18/25 00:00 Pulse Rate 90 Respiratory Rate 12 Blood Pressure 110/57 L 125/62 Pulse Oximetry 99 Oxygen Delivery Method Room Air MDM - Weakness <Sin Keene, DO - Last Filed: 01/17/25 20:06> Lab Data 01/17/25 14:22 01/17/25 14:22 Labs: Lab Results 01/17/25 01/17/25 01/17/25 Range/Units 14:22 15:34 19:50 WBC 6.9 (4.5-11.0) X10^3/uL RBC 3.61 L (4.0-5.2) X10^6/uL Hgb 10.9 L (12.0-16.0) g/dL Hct 32.9 L (36-46) % MCV 91.2 (80-100) fL MCH 30.1 (26-34) PG MCHC 33.0 (30-36) % RDW 22.0 H (11.6-14.8) % Plt Count 237 (150-400) X10^3/uL Neut % (Auto) 81.7 H (50-75) % Lymph % (Auto) 9.4 L (25-40) % Starr % (Auto) 8.3 (3-14) % Eos % (Auto) 0.4 L (2-4) % Baso % (Auto) 0.2 (0-2) % Neut # (Auto) 5600 (4313-9999) /uL Lymph # (Auto) 600 L (7742-6467) /uL Starr # (Auto) 600 (0-900) /uL Eos # (Auto) 0 (0-450) /uL Baso # (Auto) 0 (0-100) /uL RBC Morphology See below Anisocytosis 2+ H PT 11.2 (9.4-12.5) SECONDS INR 1.0 (0.9-1.3) APTT 37 H (25.1-36.5) SECONDS Sodium 131 L (137-145) mmol/L Potassium 4.4 (3.4-5.1) mmol/L Chloride 100 (98-107) mmol/L Carbon Dioxide 24 (22-32) mmol/L BUN 20 H (7-17) mg/dL Creatinine 0.64 (0.52-1.04) mg/dL Estimated GFR > 60 (>60) mL/min BUN/Creatinine Ratio 31.3 H (6-22) Glucose 116 H (80-110) mg/dL Lactate 1.2 (0.7-2.1) mmol/L Calcium 9.0 (8.4-10.2) mg/dL Total Bilirubin 0.4 (0.2-1.3) mg/dL AST 68 H (14-36) IU/L ALT 58 H (<35) IU/L Alkaline Phosphatase 279 H (38-126) U/L Total Protein 6.3 (6.3-8.2) g/dL Albumin 3.3 L (3.5-5.0) g/dL Globulin 3.0 (1.7-4.1) g/dL Albumin/Globulin Ratio 1.1 (1.0-2.8) Lipase 22 L (23-300) U/L Procalcitonin 0.317 (<0.5) ng/mL Ur Bilirubin Confirm (Negative) Urine RBC (0-5/HPF) Urine WBC (0-5/HPF) Ur Squamous Epith Cells (0-5/HPF) Urine Bacteria (None) Ur Culture Indicated? Vol Urine Centrifuged Fluid Color Bloody Fluid Appearance Cloudy Fluid RBC 30635 /uL Fld Tot Nucleated Cell 546 /uL Fluid Neutrophils % 95 % Fluid Lymphocytes % 3 % Fluid Meso/Macro/Starr % 2 % Body Fluid Clot No clots present SARS-CoV-2 (PCR) Negative (Negative) Influenza A (RT-PCR) Flu a negative (NEGATIVE) Influenza B (RT-PCR) Flu b negative (NEGATIVE) RSV (PCR) Negative (Negative) 01/17/25 Range/Units 22:08 WBC (4.5-11.0) X10^3/uL RBC (4.0-5.2) X10^6/uL Hgb (12.0-16.0) g/dL Hct (36-46) % MCV (80-100) fL MCH (26-34) PG MCHC (30-36) % RDW (11.6-14.8) % Plt Count (150-400) X10^3/uL Neut % (Auto) (50-75) % Lymph % (Auto) (25-40) % Starr % (Auto) (3-14) % Eos % (Auto) (2-4) % Baso % (Auto) (0-2) % Neut # (Auto) (2395-4879) /uL Lymph # (Auto) (3251-8268) /uL Starr # (Auto) (0-900) /uL Eos # (Auto) (0-450) /uL Baso # (Auto) (0-100) /uL RBC Morphology Anisocytosis PT (9.4-12.5) SECONDS INR (0.9-1.3) APTT (25.1-36.5) SECONDS Sodium (137-145) mmol/L Potassium (3.4-5.1) mmol/L Chloride (98-107) mmol/L Carbon Dioxide (22-32) mmol/L BUN (7-17) mg/dL Creatinine (0.52-1.04) mg/dL Estimated GFR (>60) mL/min BUN/Creatinine Ratio (6-22) Glucose (80-110) mg/dL Lactate (0.7-2.1) mmol/L Calcium (8.4-10.2) mg/dL Total Bilirubin (0.2-1.3) mg/dL AST (14-36) IU/L ALT (<35) IU/L Alkaline Phosphatase (38-126) U/L Total Protein (6.3-8.2) g/dL Albumin (3.5-5.0) g/dL Globulin (1.7-4.1) g/dL Albumin/Globulin Ratio (1.0-2.8) Lipase (23-300) U/L Procalcitonin (<0.5) ng/mL Ur Bilirubin Confirm Negative (Negative) Urine RBC None seen (0-5/HPF) Urine WBC 0-1/hpf (0-5/HPF) Ur Squamous Epith Cells 1-5 /hpf (0-5/HPF) Urine Bacteria Few (2-10) H (None) Ur Culture Indicated? Cult not indicated Vol Urine Centrifuged 10ml (spun) Fluid Color Fluid Appearance Fluid RBC /uL Fld Tot Nucleated Cell /uL Fluid Neutrophils % % Fluid Lymphocytes % % Fluid Meso/Macro/Starr % % Body Fluid Clot SARS-CoV-2 (PCR) (Negative) Influenza A (RT-PCR) (NEGATIVE) Influenza B (RT-PCR) (NEGATIVE) RSV (PCR) (Negative) Urine Dip Bedside Urine Glucose Negative Bedside Urine Bilirubin + 1 Bedside Urine Ketone +/- 5 Urine Specific Parsons 1.010 Bedside Urine Occult Blood +/- Bedside Urine pH 5.5 Bedside Urine Protein - Negative Bedside Urine Urobilinogen - Negative Bedside Urine Nitrite + Positive Bedside Urine Leukocytes +++ [address] scan - abdomen/pelvis: Radiologist Impression: [address] [address] [address] Scan Report Signed Patient: Ute Sánchez MR#: [id number] : 1945 Acct:[id number] Age/Sex: 79 / F Date of Service: 01/17/25 Loc: ED Accession Number: [id number] Procedure: CT abdomen pelvis w con Ordering Provider: Sin Keene D.O. PROCEDURE: CT ABDOMEN PELVIS W CON INDICATIONS: abd pain TECHNIQUE: After the administration of intravenous contrast, axial sections acquired from the lung bases to the pubic symphysis. Coronal and sagittal reformats were performed. For radiation dose reduction, the following was used: automated exposure control, adjustment of mA and/or kV according to patient size. COMPARISON: Outside Film, CT, CT CHEST ABDOMEN PELVIS WITH CONTRAST, 11/23/2023, 11:03. Formerly [facility], CT, CT ABDOMEN WITH CONTRAST, 01/15/2024, 9:07. FINDINGS: Image quality: Diagnostic. Lower Chest: No significant findings. ABDOMEN: Liver: No solid mass. Gallbladder: Removed. Biliary ducts: Mild appearance of intrahepatic biliary dilation. Pancreas: With pole procedure is present. Spleen: Size is within normal limits. Adrenal Glands: No adrenal nodules. Kidneys and Ureters: No hydronephrosis. No solid mass. No complex renal cystic lesion which requires follow up. Stomach and Bowel: Portions of the bowel are obscured secondary to fluid. Diverticula are present notably in the left colon. There is an overall appearance of thickening predominantly within the right colon extending to portions of the sigmoid colon. Areas of thickened small bowel loops with fluid-filled distention is present measuring 3.5 cm. Peritoneum: Significant ascites, increased compared to prior exam. No free air. Ventral Wall: No significant ventral hernia. Abdominal Nodes: No retroperitoneal or mesenteric adenopathy by size criteria. Vessels: Aorta and inferior vena cava are normal in size. PELVIS: Pelvic Organs: Calcification within the uterus likely fibroids. Bladder: No bladder wall thickening, accounting for underdistention. Pelvic Nodes: No enlarged lymph nodes. Miscellaneous: No inguinal hernias are seen. Bones: No aggressive osseous abnormality. IMPRESSION: Large volume ascites increased compared to prior exam. Appearance of thickening and inflammatory change predominantly within the right colon as well as thickening of small bowel loops. Appearance is suggestive of colitis secondary to infection or inflammation. There is secondary affect of likely ileus versus developing partial small bowel obstruction within the small bowel loops possibly related to inflammation/enteritis. Dictated by: Wendy Garcia M.D. on 01/17/2025 at 17:01 Approved by: Wendy Garcia M.D. on 01/17/2025 at 17:07 ECG Data Attestation: I personally reviewed and interpreted this ECG as follows: Interpretation: Ectopic atrial rhythm HR [address]-t wave change CO 81 CO 170 QRS 88 QT362 No old EKG to compare against MDM Narrative Medical decision making narrative: Pt s/o to at shift change pending final disposition. <Roselyn Whyte, - Last Filed: 01/19/25 03:58> Lab Data Labs: Lab Results 01/17/25 01/17/25 01/17/25 Range/Units 14:22 15:34 19:50 WBC 6.9 (4.5-11.0) X10^3/uL RBC 3.61 L (4.0-5.2) X10^6/uL Hgb 10.9 L (12.0-16.0) g/dL Hct 32.9 L (36-46) % MCV 91.2 (80-100) fL MCH 30.1 (26-34) PG MCHC 33.0 (30-36) % RDW 22.0 H (11.6-14.8) % Plt Count 237 (150-400) X10^3/uL Neut % (Auto) 81.7 H (50-75) % Lymph % (Auto) 9.4 L (25-40) % Starr % (Auto) 8.3 (3-14) % Eos % (Auto) 0.4 L (2-4) % Baso % (Auto) 0.2 (0-2) % Neut # (Auto) 5600 (9093-0414) /uL Lymph # (Auto) 600 L (1706-4274) /uL Starr # (Auto) 600 (0-900) /uL Eos # (Auto) 0 (0-450) /uL Baso # (Auto) 0 (0-100) /uL RBC Morphology See below Anisocytosis 2+ H PT 11.2 (9.4-12.5) SECONDS INR 1.0 (0.9-1.3) APTT 37 H (25.1-36.5) SECONDS Sodium 131 L (137-145) mmol/L Potassium 4.4 (3.4-5.1) mmol/L Chloride 100 (98-107) mmol/L Carbon Dioxide 24 (22-32) mmol/L BUN 20 H (7-17) mg/dL Creatinine 0.64 (0.52-1.04) mg/dL Estimated GFR > 60 (>60) mL/min BUN/Creatinine Ratio 31.3 H (6-22) Glucose 116 H (80-110) mg/dL Lactate 1.2 (0.7-2.1) mmol/L Calcium 9.0 (8.4-10.2) mg/dL Total Bilirubin 0.4 (0.2-1.3) mg/dL AST 68 H (14-36) IU/L ALT 58 H (<35) IU/L Alkaline Phosphatase 279 H (38-126) U/L Total Protein 6.3 (6.3-8.2) g/dL Albumin 3.3 L (3.5-5.0) g/dL Globulin 3.0 (1.7-4.1) g/dL Albumin/Globulin Ratio 1.1 (1.0-2.8) Lipase 22 L (23-300) U/L Procalcitonin 0.317 (<0.5) ng/mL Ur Bilirubin Confirm (Negative) Urine RBC (0-5/HPF) Urine WBC (0-5/HPF) Ur Squamous Epith Cells (0-5/HPF) Urine Bacteria (None) Ur Culture Indicated? Vol Urine Centrifuged Fluid Color Bloody Fluid Appearance Cloud[place] 74003 /uL Fld Tot Nucleated Cell 546 /uL Fluid Neutrophils % 95 % Fluid Lymphocytes % 3 % Fluid Meso/Macro/Starr % 2 % Body Fluid Clot No clots present SARS-CoV-2 (PCR) Negative (Negative) Influenza A (RT-PCR) Flu a negative (NEGATIVE) Influenza B (RT-PCR) Flu b negative (NEGATIVE) RSV (PCR) Negative (Negative) 01/17/25 Range/Units 22:08 WBC (4.5-11.0) X10^3/uL RBC (4.0-5.2) X10^6/uL Hgb (12.0-16.0) g/dL Hct (36-46) % MCV (80-100) fL MCH (26-34) PG MCHC (30-36) % RDW (11.6-14.8) % Plt Count (150-400) X10^3/uL Neut % (Auto) (50-75) % Lymph % (Auto) (25-40) % Starr % (Auto) (3-14) % Eos % (Auto) (2-4) % Baso % (Auto) (0-2) % Neut # (Auto) (0041-6763) /uL Lymph # (Auto) (6029-4117) /uL Starr # (Auto) (0-900) /uL Eos # (Auto) (0-450) /uL Baso # (Auto) (0-100) /uL RBC Morphology Anisocytosis PT (9.4-12.5) SECONDS INR (0.9-1.3) APTT (25.1-36.5) SECONDS Sodium (137-145) mmol/L Potassium (3.4-5.1) mmol/L Chloride (98-107) mmol/L Carbon Dioxide (22-32) mmol/L BUN (7-17) mg/dL Creatinine (0.52-1.04) mg/dL Estimated GFR (>60) mL/min BUN/Creatinine Ratio (6-22) Glucose (80-110) mg/dL Lactate (0.7-2.1) mmol/L Calcium (8.4-10.2) mg/dL Total Bilirubin (0.2-1.3) mg/dL AST (14-36) IU/L ALT (<35) IU/L Alkaline Phosphatase (38-126) U/L Total Protein (6.3-8.2) g/dL Albumin (3.5-5.0) g/dL Globulin (1.7-4.1) g/dL Albumin/Globulin Ratio (1.0-2.8) Lipase (23-300) U/L Procalcitonin (<0.5) ng/mL Ur Bilirubin Confirm Negative (Negative) Urine RBC None seen (0-5/HPF) Urine WBC 0-1/hpf (0-5/HPF) Ur Squamous Epith Cells 1-5 /hpf (0-5/HPF) Urine Bacteria Few (2-10) H (None) Ur Culture Indicated? Cult not indicated Vol Urine Centrifuged 10ml (spun) Fluid Color Fluid Appearance Fluid RBC /uL Fld Tot Nucleated Cell /uL Fluid Neutrophils % % Fluid Lymphocytes % % Fluid Meso/Macro/Starr % % Body Fluid Clot SARS-CoV-2 (PCR) (Negative) Influenza A (RT-PCR) (NEGATIVE) Influenza B (RT-PCR) (NEGATIVE) RSV (PCR) (Negative) Urine Dip Bedside Urine Glucose Negative Bedside Urine Bilirubin + 1 Bedside Urine Ketone +/- 5 Urine Specific Parsons 1.010 Bedside Urine Occult Blood +/- Bedside Urine pH 5.5 Bedside Urine Protein - Negative Bedside Urine Urobilinogen - Negative Bedside Urine Nitrite + Positive Bedside Urine Leukocytes +++ 500 Esterase MDM Narrative Medical decision making narrative: Pt s/o to at shift change pending final disposition. Dr. Keene, spoke with Dr. Flores who deferred to night hospitalist. Dr. Keene spoke with Dr. Fowler who feels patient would be more appropriate for transfer back to [facility] for her complicated history and continuity of care. 01/17/2025 Dr. Whyte: Patient signed out to myself. Patient was seen and evaluated by myself she was stage IV pancreatic cancer status post Whipple procedure has had chemo, has had repeat paracentesis. Patient's labs had resulted case has been discussed with hospitalist who did not feel comfortable keeping the place and unless paracentesis performed. I did perform this and after discussion with the patient she was had several has been inpatient note the last several were bloody. Did appear little bit bloody today they stated actually appears improved. She has had some complaints of pain but also had colitis on imaging so cell count was sent as well as culture and fluid studies. RBCs are 21,690 total nucleated cells are 546. Patient is not particularly tender on exam but numbers or concerning for possible SBP. Patient's pressure seemed to improve after paracentesis so she did not receive albumin. She was given Rocephin 2 g here in the department. Dr. Whyte had spoken with the hospitalist after paracentesis and they had asked for transfer to [facility]. Labs show hemoglobin of 10.9 was 12 in 2022 I do not have any priors for comparison white count 6.9 with platelets of 237. INR is 1. Electrolytes sodium is 131 potassium is 4 chloride 100 CO2 is 24 BUN 20 creatinine 0.64 glucose is 116 lactate 1.2 bilirubin is 0.4 AST ALT and alk-phos are all slightly elevated at 68, 58 and 279. Lipase of 22 procalcitonin 0.317. Patient did have fluid/COVID/RSV which was negative Patient had CT abdomen pelvis shows large volume ascites thickening and inflammatory changes prominently right colon as well as thickening of small bowel loops appearance suggested colitis secondary infection or inflammation. Secondary effect of likely ileus versus developing partial small bowel obstruction with small bowel loops possibly related to inflammation/enteritis. Chest x-ray shows no acute change Spoke with Dr. Roy, general surgery is happy to see patient although she does not think patient has any surgical issues at this time that they would intervene with. Spoke with the hospitalist Dr. Adams, she and I reviewed patient's findings workup thus far does not feel patient was sitting needs transfer at this time he was happy to talk to our tele hospitalist in a doc to doc phone call. Page out to Dr. Fowler @ [phone]. Spoke with him we will have a doctor to doctor conversation between [facility] and [facility]. I spoke with Dr. Fowler he does not feel patient is appropriate to keep here and refuses observatoin/admission here. He will chat with Dr. Bryan Adams did call back at [phone] 01/18/25: Does not feel patient needs transfer feels they could be treated here but if hospitalist he was refusing they will accept based on hospitalist refusing admission. Dr. Adams accepts for transfer feels patient does not require transfer at this time but we will accept as our hospitalist is refusing admission here. Discharge Plan Departure Patient Disposition: [facility] Clinical Impression: SBP (spontaneous bacterial peritonitis), Colitis Prescriptions: No Action amlodipine 5 mg tablet 5 mg PO QPM pantoprazole 40 mg tablet,delayed release (DR/EC) 40 mg PO DAILY Creon 36,000-114,000- 180,000 unit capsule,delayed release(DR/EC) 2 cap PO BID Rx Instructions: administer with meals and/or snacks metformin 500 mg tablet 500 mg PO DAILY losartan 100 mg Tablet 100 mg PO DAILY aspirin 81 mg Tablet,Delayed Release (Dr/Ec) 81 mg PO DAILY Referrals: Travis Narvaez MD [Primary Care Provider] -
--- NOTE | 2025-01-17 15:39 | DI.CT.S_ITS ---
PROCEDURE: CT ABDOMEN PELVIS W CON INDICATIONS: abd pain TECHNIQUE: After the administration of intravenous contrast, axial sections acquired from the lung bases to the pubic symphysis. Coronal and sagittal reformats were performed. For radiation dose reduction, the following was used: automated exposure control, adjustment of mA and/or kV according to patient size. COMPARISON: Outside Film, CT, CT CHEST ABDOMEN PELVIS WITH CONTRAST, 11/23/2023, 11:03. [facility], CT, CT ABDOMEN WITH CONTRAST, 01/15/2024, 9:07. FINDINGS: Image quality: Diagnostic. Lower Chest: No significant findings. ABDOMEN: Liver: No solid mass. Gallbladder: Removed. Biliary ducts: Mild appearance of intrahepatic biliary dilation. Pancreas: With pole procedure is present. Spleen: Size is within normal limits. Adrenal Glands: No adrenal nodules. Kidneys and Ureters: No hydronephrosis. No solid mass. No complex renal cystic lesion which requires follow up. Stomach and Bowel: Portions of the bowel are obscured secondary to fluid. Diverticula are present notably in the left colon. There is an overall appearance of thickening predominantly within the right colon extending to portions of the sigmoid colon. Areas of thickened small bowel loops with fluid-filled distention is present measuring 3.5 cm. Peritoneum: Significant ascites, increased compared to prior exam. No free air. Ventral Wall: No significant ventral hernia. Abdominal Nodes: No retroperitoneal or mesenteric adenopathy by size criteria. Vessels: Aorta and inferior vena cava are normal in size. PELVIS: Pelvic Organs: Calcification within the uterus likely fibroids. Bladder: No bladder wall thickening, accounting for underdistention. Pelvic Nodes: No enlarged lymph nodes. Miscellaneous: No inguinal hernias are seen. Bones: No aggressive osseous abnormality. IMPRESSION: Large volume ascites increased compared to prior exam. Appearance of thickening and inflammatory change predominantly within the right colon as well as thickening of small bowel loops. Appearance is suggestive of colitis secondary to infection or inflammation. There is secondary affect of likely ileus versus developing partial small bowel obstruction within the small bowel loops possibly related to inflammation/enteritis. Dictated by: Wendy Garcia M.D. on 01/17/2025 at 17:01 Approved by: Wendy Garcia M.D. on 01/17/2025 at 17:07
[2025-01-17 16:21] LABS: Influenza A - CEPHEID Flu A NEGATIVE (NEGATIVE); Influenza B - CEPHEID Flu B NEGATIVE (NEGATIVE); Respiratory Syncytial Virus Negative (Negative)
[2025-01-17 16:28] LABS: COVID-19 CEPHEID 4-PLEX PCR Negative (Negative)
--- NOTE | 2025-01-17 17:44 | PM.CALLCOV.1 ---
Call Coverage Note Note Date of Patient Contact: 01/17/25 Narrative of Care Provided: Contacted for admission. This is a 79 year female with pancreatic cancer and large volume ascites with signs of enteritis and possible bowel obstruction. Recommend diagnostic paracentesis to rule out SBP. Unfortunately there are no providers available in the hospital this weekend for paracentesis. Recommend transfer to facility where this can occur.
--- NOTE | 2025-01-17 18:44 | DI.US.S_ITS ---
PROCEDURE: US ABDOMEN LIMITED INDICATIONS: paracentesis TECHNIQUE: Real-time focused scanning was performed of the abdomen, with image documentation. COMPARISON: None. FINDINGS: Limited ultrasound images of the 4 quadrants demonstrate a moderate amount of ascites. IMPRESSION: Moderate volume ascites. The right lower quadrant was marked for paracentesis. Dictated by: Pavan Petersen M.D. on 01/17/2025 at 19:40 Approved by: Pavan Petersen M.D. on 01/17/2025 at 19:41
[2025-01-17] MEDS: LIDOCAINE 2% INJ SDV 5ML 2 ML INJ (19:35)
[2025-01-17 20:32] LABS: Body Fluid Red Blood Cells 21609 /uL; Body Fluid Tot Nucleated Cells 546 /uL
[2025-01-17 20:42] LABS: Body Fluid Color BLOODY
[2025-01-17 20:43] LABS: Body Fluid Appearance CLOUDY; Body Fluid Clotted? NO CLOTS PRESENT
[2025-01-17 21:25] LABS: Lymphocytes Body Fluid 3 %; MESO/MACRO/MONO Body Fluid 2 %; Neutrophils Body Fluid 95 %
[2025-01-17] MEDS: cefTRIAXone 2,000 MG in SODIUM CHLORIDE 0.9% 100 ML 200 MG IV (22:19)
[2025-01-17 22:27] LABS: Ictotest Urine Negative (Negative)
[2025-01-17 23:29] LABS: Bacteria Urine Few (2-10); RBC Urine None Seen (0-5/HPF); Urine Volume 10mL (spun); WBC Urine 0-1/HPF (0-5/HPF)
[2025-01-17 23:30] LABS: Culture Indicated Urine Cult Not Indicated; Squamous Epithelial Cell Urine 1-5 /HPF (0-5/HPF)
--- NOTE | 2025-01-17 23:52 | PC.NURSE ---
Pt given 1/2 turkey sandwich with pratt. 1 applesauce and water at this time.
[2025-01-18] VITALS: BP 125/62; PULSE 90; RESP 12; O2SAT 99
[2025-01-18 00:51] VITALS: PULSE 75; O2SAT 98
[2025-01-18 01:00] VITALS: PULSE 75; RESP 17; O2SAT 99
[2025-01-18 01:30] VITALS: PULSE 77; RESP 17; O2SAT 99
[2025-01-18 01:37] VITALS: BP 123/67; PULSE 78; RESP 19; O2SAT 99
== END 2025-01-18 02:29 | disposition short-term general hospital (02) ==
PROVIDERS: Family Medicine; Emergency Provider Emergency Medicine; Family Provider Internal Medicine; PCP Internal Medicine
DX: K65.2 Spontaneous bacterial peritonitis (principal); K52.9 Noninfective gastroenteritis and colitis, unspecified; C25.9 Malignant neoplasm of pancreas, unspecified; Z92.21 Personal history of antineoplastic chemotherapy
CPT/HCPCS: 0241U; 36415; 49082; 71045; 74177; 76705; 80053; 81003; 81015; 83605; 83690; 84145; 85025; 85610; 85730; 87040; 87070; 87075; 87077; 87086; 87186; 87205; 89051; 93005; 96361; 96365; 99285; J0696; Q9967